=== PATIENT | male | born 1955 | race Caucasian/White ===

== ENCOUNTER 2017-10-05 08:52 | Outpatient (CLI) | payer OTHER ==
[2017-10-05 10:03] LABS: Estimated GFR-MDRD - POC Greater than 90
--- NOTE | 2017-10-05 11:39 | CT ---
CT ABDOMEN AND PELVIS WITH ORAL AND IV CONTRAST: Date: 10/05/17 HISTORY: Malignant neoplasm of prostate. COMPARISON: None FINDINGS: There are mild dependent changes at the lung bases. There are calcified granulomas in the liver and s pleen. The spleen measures 13.8 cm in length. No liver mass or abnormal biliary ductal dilatation is seen. No calcified gallstones are identified. The pancreas and adrenal glands are normal. There are s mall low density lesions in the renal cortex on either side measuring 7.0 mm on the right and 6.0 mm on the left, likely cysts. No hydroureteronephrosis is identified on either side. There is thickening of the wall of the urinary bladder. No free air, free fluid, or lymphadenopathy is seen in the abdomen or pelvis. There are vascular calc ifications without evidence of aneurysmal dilatation of the abdominal aorta. There is sigmoid diverti culosis. There are degenerative changes in the spine. A normal appearing appendix is present. There is a 14.0 mm lipoma in the third portion of the duodenu m. IMPRESSION: 1. Calcified granulomas in the liver and spleen. 2. Mild splenomegaly. 3. Small renal cysts. 4. Sigmoid diverticulosis. POS: [facility]
--- NOTE | 2017-10-05 13:50 | NM ---
WHOLE BODY BONE SCAN: Date: 10/05/17 HISTORY: Malignant neoplasm of prostate. RADIOPHARMACEUTICAL: 31 mCi technetium-99m MDP injected intravenously. FINDINGS: Increased uptake in the shoulders, sternoclavicular joints, both wrists, and knees, ankles, and feet are consistent with degenerative changes. Foci of increased uptake in the maxilla are consistent with periaortic disease. No other abnormal areas of tracer localization are seen in the skeleton to sugge st metastatic disease. Tracer excretion through the kidneys is within normal limits. IMPRESSION: No evidence of osseous metastatic disease. POS: [facility]
[2017-10-05] MEDS ORDERED: Iopamidol 370 76% 100 ML VIAL ONE (15:01)
== END 2017-10-05 08:53 | disposition home or self-care (01) ==
LOC: CT 08:52
PROVIDERS: ATTEND Internal Medicine Hematology & Oncology
DX: C61 Malignant neoplasm of prostate (principal); K75.3 Granulomatous hepatitis, not elsewhere classified; D73.89 Other diseases of spleen; R16.1 Splenomegaly, not elsewhere classified; N28.1 Cyst of kidney, acquired; K57.30 Diverticulosis of large intestine without perforation or abscess without bleeding
CPT/HCPCS: 74177; 78306; 82565; A9503

== ENCOUNTER 2020-06-20 16:16 | Inpatient (IN) | payer MEDICARE ==
[2020-06-20] MEDS: Morphine 4 MG/ML VIAL SLOW IVP PRN (21:23)
[2020-06-20] MEDS ORDERED: Ondansetron ODT 4 MG TAB PO PRN (22:35)
[2020-06-20] MEDS ORDERED: Acetaminophen 650 MG Suppository PR PRN (22:35)
[2020-06-20] MEDS ORDERED: Acetaminophen 325 MG TAB PO PRN (22:35)
--- NOTE | 2020-06-20 23:09 | PDOC.HHP ---
Hospitalist HPI - History of Present Illness Hip pain History of Present Illness: Mr. Kiser is a 65-year-old male with a past medical history of prostate cancer, hypertension, hyperlipidemia, peripheral vascular disease who initially presented to [facility] for left hip pain. Patient reports that over the past 6 months he has had worsening left hip pain which he has had multiple evaluations for. Patient had a x-ray of his hip in February which showed no acute pathology, and patient was also referred to cardiovascular surgery for peripheral vascular disease and started on Plavix. Patient also began seeing a chronic pain clinic for his hip pain and was supposed to undergo an MRI, however over the past few days his hip pain acutely worsened and he presented to the ER. He denies numbness, tingling, paresthesias. Denies back pain. Patient has history of prostate cancer which he underwent Lupron therapy for, however has been lost to follow-up. He denies fever, chills, night sweats. Denies any unexplained weight loss. In emergency room initial vital signs 125/63, 97, 15, 97.4, 97% on room air. H/H 12.5/36.3. WBC 10.3. BUNs/CR 10/0.7. Sodium 137, potassium 4.2. CT scan of the pelvis showed a large bone destroying mass of the left ilium including disruption of the left acetabular roof along with nondisplaced pathologic fractures favored to represent malignant neoplasm such as metastasis. CT scan also showed a complex cystic mass anterior to the left femoral head and neck concerning for tumor versus abscess as well as severe joint space narrowing. In addition in the perirectal space there was a mass associated with edema of uncertain etiology. Patient was transferred to [facility] for further work-up and evaluation of this new pelvic mass as well as pain control. Hospitalist ROS - Review of Systems Constitutional: denies: fever, chills, sweats, weakness, malaise, other Eyes: denies: pain, vision change, conjunctivae inflammation, eyelid inflammation, redness, other ENT: denies: ear pain, ear discharge, nose pain, nose discharge, nose congestion, mouth pain, mouth swelling, throat pain, throat swelling, other Respiratory: denies: cough, dry, shortness of breath, hemoptysis, SOB with excertion, pleuritic pain, sputum, wheezing, other Cardiovascular: denies: chest pain, palpitations, orthopnea, paroxysmal noc. dyspnea, edema, light headedness, other Gastrointestinal: denies: nausea, vomiting, abdominal pain, diarrhea, constipation, melena, hematochezia, other Genitourinary: denies: dysuria, frequency, incontinence, hematuria, retention, other Musculoskeletal: reports: leg pain. denies: neck pain, shoulder pain, arm pain, back pain, hand pain, foot pain, other Skin: denies: rash, lesions, elana, bruising, other Neurological: denies: weakness, numbness, incoordination, change in speech, confusion, seizures, other - Medication Medications: Home medications include Plavix Amlodipine Atorvastatin Gabapentin Carvedilol Lisinopril No known drug allergies Hospitalist History - Past Medical History Other Medical History: Past medical history includes Prostate cancer Hypertension Hyperlipidemia Peripheral vascular disease - Past Surgical History Other Surgical History: Denies past medical history - Family History Other Family History: Denies family history of cancer cardiac disease - Social History Smoking Status: Current every day smoker Tobacco Type: cigarettes Alcohol: reports: Occassional Drugs: reports: none Living Situation: Alone Activity level: independent ambulation - Exam General Appearance: NAD, awake alert Eye: PERRL, anicteric sclera ENT: normocephalic atraumatic, no oropharyngeal lesions, moist mucosa Neck: supple, symmetric, no JVD, no thyromegaly, no lymphadenopathy, no carotid bruit Heart: RRR, no murmur, no gallops, no rubs, normal peripheral pulses Respiratory: CTAB, no wheezes, no rales, no ronchi, normal chest expansion, no tachypnea, normal percussion Gastrointestinal: soft, non-tender, non-distended, normal bowel sounds, no palpable masses, no hepatomegaly, no splenomegaly, no bruit Extremities: no cyanosis Skin: normal turgor, no lesions, no rashes Neurological: cranial nerve grossly intact, normal sensation to touch, no weakness, no focal deficits, no new deficit Musculoskeletal: normal tone Musculoskeletal - other findings: Flexion of the left hip limited due to pain, reflexes intact Psychiatric: normal affect, normal behavior, A&O x 3 Hospitalist H&P A/P - Plan Plan: Osteolytic hip mass 65-year-old male with history of prostate cancer, hypertension, hyperlipidemia, peripheral vascular disease presents for acute worsening of left hip pain which is been progressive for the past [address] pelvis showed large approximately 5 cm osteolytic mass to the left hip as well as additional mass around the perirectum. Differential is broad, and will initiate work-up as well as consult orthopedics for further recommendations. This could represent primary cancer versus metastasis as patient does have history of prostate cancer. Mass is supposedly fast-growing as patient had a plain film of the hip done in February 2020 which was normal. Low suspicion for infectious process at this time as patient afebrile with no white blood cell count, however certainly remains in the differential. Plan Tumor lysis labs SPEP UPEP Chest x-ray to evaluate for lung mass, other lytic lesions PTH, calcium, magnesium, ESR, CRP Orthopedics consult, recommendations appreciated Patient will likely need oncology consult as well History of prostate cancer History of prostate cancer was on Lupron therapy years ago, however patient lost to follow-up. Osteolytic mass concerning for mets. Will check PSA and consult oncology for further recommendations. Plan PSA Consider oncology consult Hypertension History of hypertension on home amlodipine and lisinopril. We will continue. Hyperlipidemia We will continue home statin Peripheral vascular disease History of peripheral vascular disease, on Plavix, will continue DVT prophylaxisLovenox Full code Case discussed with attending physician, Dr. Smith
[2020-06-20 23:10] LABS: Calcium 9.3 mg/dL (7.8-10.44); Phosphorus 4.5 mg/dL (2.3-4.7); Uric Acid 6.9 mg/dL (3.5-7.2)
[2020-06-21 02:28] LABS: SARS-CoV-2 MS2 Positive; SARS-CoV-2 N Gene Negative; SARS-CoV-2 S Gene Negative; SARS-CoV-2 by NAA Not Detected (NotDetected); SARS-CoV-2 orf1ab Negative
[2020-06-21] MEDS: Morphine 4 MG/ML VIAL SLOW IVP PRN ×4 (03:00→17:03)
[2020-06-21 04:37] LABS: #Basophils 0.1 thou/uL (0.0-0.2); #Eosinphils 0.3 thou/uL (0.0-0.7); #Lymphocytes 2.6 thou/uL (1.20-3.40); #Monocytes 0.5 thou/uL (0.11-0.59); #Neutrophils 5.6 thou/uL (1.40-6.50); %Basophils 0.7 % (0.0-1.0); %Eosinophils 3.4 % (0.0-10.0); %Lymphocytes 28.8 % (21.0-51.0); %Monocytes 5.9 % (0.0-10.0); %Neutrophils 61.2 % (42.0-75.0); Hemoglobin 11.5 g/dL (14.0-18.0); Mean Corpuscular HGB CONC 33.8 g/dL (32.0-36.0); Mean Corpuscular Hemoglobin 32.1 pg (27.0-31.0); Mean Corpuscular Volume 94.9 fL (78.0-98.0); Mean Platelet Volume 6.2 fL (7.4-10.4); Platelet Count 313 thou/uL (130-400); RBC Distribution Width 11.6 % (11.5-14.5); Red Blood Cell (RBC) Count 3.57 mill/uL (4.70-6.10); White Blood Cell (WBC) Count 9.1 thou/uL (4.8-10.8)
[2020-06-21 04:57] LABS: Anion Gap 14 mmol/L (10-20); BUN (Urea Nitrogen) 15 mg/dL (8.4-25.7); Calc. Creatinine Clearance 71 mL/min (70-130); Calcium 9.1 mg/dL (7.8-10.44); Carbon Dioxide 27 mmol/L (23-31); Chloride 101 mmol/L (98-107); Glucose 112 mg/dL (80-115); Potassium 4.3 mmol/L (3.5-5.1); Sodium 138 mmol/L (136-145)
[2020-06-21] MEDS: Gabapentin 300 MG CAP PO SCH ×3 (08:02→19:56)
[2020-06-21] MEDS: Enoxaparin Sodium 40 MG/0.4 ML SYRINGE SC SCH (08:03)
[2020-06-21] MEDS: Carvedilol 6.25 MG TAB PO SCH ×2 (08:04→19:56)
[2020-06-21] MEDS: Lisinopril 20 MG TAB PO SCH (08:04)
[2020-06-21] MEDS ORDERED: Clopidogrel Bisulfate 75 MG TAB PO SCH (09:00)
--- NOTE | 2020-06-21 09:21 | RAD ---
RADIOGRAPH CHEST 2 VIEWS: DATE: 06/21/2020 HISTORY: 65-year-old male: Search for lung cancer as source of large metastatic mass of left side pelvic bone. FINDINGS: There is no airspace density, pulmonary edema, pleural effusion, pneumothorax, or cardiomegaly. No pu lmonary mass or hilar enlargement identified. No mediastinal widening. IMPRESSION: No active intrathoracic disease
--- NOTE | 2020-06-21 10:18 | CON ---
DATE OF CONSULTATION: CHIEF COMPLAINT: Left hip pain. HISTORY OF PRESENT ILLNESS: Mr. Kiser is a 65-year-old male, who presented to the emergency department after transfer from [place] last night. He had severe hip pain over the last approximately 6 months. This began somewhat with mild pain, but has worsened over time. He has been using a walker. He has been able to only ambulate around his house short distance, mostly spending time sitting recently. His pain worsened over the last several days again. The patient has had a CT scan, which has now demonstrated a large bone mass destroying the left ilium and acetabulum. There is a lytic mass in this area. Orthopedics was consulted to evaluate this patient's hip. He has been admitted to the Oncology floor. He does have a history of prostate cancer remotely. He was treated here in [place] for that several years ago. He denies any specific injury. He denies any constitutional symptoms that would suggest infection. PAST MEDICAL HISTORY: Includes; 1. Prostate cancer. 2. Hypertension. 3. Hyperlipidemia. 4. Peripheral vascular disease. FAMILY MEDICAL HISTORY: Noncontributory. SOCIAL HISTORY: The patient does smoke cigarettes daily. He drinks alcohol occasionally. Denies drug use. MEDICATIONS: Include; 1. Plavix. 2. Amlodipine. 3. Atorvastatin. 4. Gabapentin. 5. Carvedilol. 6. Lisinopril. LABORATORY STUDIES: Hemoglobin is 11.5, hematocrit is 33.9. His prostate specific antigen is high at 124. Electrolytes are within normal limits. IMAGING DATA: CT scan of the pelvis again reveals a large lytic mass of the left acetabulum and ilium. The acetabular roof has been eroded. There is incongruency of the hip. There is extension into the soft tissues about the ilium. IMPRESSION: A 65-year-old male with lytic mass of the ilium eroding the acetabulum and ilium with history of prostate cancer and elevated PSA. PLAN: At this point, the patient's most likely diagnosis is going to be metastatic prostate cancer, although it is possible that this is a second primary tumor. Given the location of his large mass and the extensive involvement of his pelvis, I think the patient would best be treated in [facility] by musculoskeletal oncologist. I would not recommend any surgical intervention here or likely even biopsy. In general, in my experience, the musculoskeletal oncologist would prefer to do the biopsy as well, so they can plan the biopsy tract in the surgical field. Unfortunately, I do not think I can help this patient. I am available if he needs anything while an inpatient, but I would recommend transfer to musculoskeletal oncologist likely at [facility]. Job ID: [id number] GRE[facility]
--- NOTE | 2020-06-21 16:18 | PDOC.HOSPP ---
- Subjective Encounter Date: 06/21/20 Encounter Time: 16:13 Subjective: Seen for follow-up regarding complaints. Reports left hip pain. - Objective Vital Signs & Weight: Vital Signs (12 hours) Temp Pulse Resp BP BP Pulse Ox 06/21/20 12:22 98.6 F 72 18 108/66 95 06/21/20 08:04 119/57 L 06/21/20 07:59 98.5 F 83 18 119/57 L 94 L Weight Admit Weight 119 lb 5.008 oz Weight 119 lb 5 oz I&O: 06/20/20 06/21/20 06/22/20 06:59 06:59 06:59 Intake Total 600 400 Output Total 100 Balance 500 400 Result Diagrams: 06/21/20 04:09 06/21/20 04:09 Additional Labs: Labs and MAR reviewed by wv Hospitalist ROS - Review of Systems Cardiovascular: denies: chest pain (Left hip pain), palpitations, orthopnea, paroxysmal noc. dyspnea, edema, light headedness Gastrointestinal: denies: nausea, vomiting, abdominal pain, diarrhea, constipation, melena, hematochezia Musculoskeletal: reports: other - Medication Medications: Active Medications Generic Name Dose Route Start Last Admin Trade Name Freq PRN Reason Stop Dose Admin Carvedilol 6.25 mg 06/21/20 09:00 06/21/20 08:04 Carvedilol 6.25 Mg Tab PO Not Given BID ON LICENSE OF [facility] Enoxaparin Sodium 40 mg 06/21/20 09:00 06/21/20 08:03 Enoxaparin Sodium 40 Mg/0.4 Ml Syringe SC 40 mg 0900 ON LICENSE OF [facility] Administration Gabapentin 300 mg 06/21/20 09:00 06/21/20 08:02 Gabapentin 300 Mg Cap PO 300 mg TID ELLIE Administration Lisinopril 20 mg 06/21/20 09:00 06/21/20 08:04 Lisinopril 20 Mg Tab PO Not Given DAILY ON LICENSE OF [facility] Morphine Sulfate 4 mg 06/20/20 20:29 06/21/20 12:59 Morphine 4 Mg/Ml Vial SLOW IVP 4 mg Q4H PRN Administration Severe Pain (7-10) - Exam General Appearance: awake alert Eye: anicteric sclera ENT: moist mucosa Neck: supple Heart: RRR Respiratory: CTAB Gastrointestinal: soft Skin: no rashes Psychiatric: normal affect, normal behavior Hosp A/P - Plan - Plan Plan: Assessment/plan: Osteolytic hip mass Discussed with orthopedic surgery service. Patient will need to be transferred to a tertiary center for a musculoskeletal oncologist. Will initiate transfer to [facility]. Pain management. PT eval/treat. History of prostate cancer Patient is a poor historian, reports having prostate cancer in the past and says he was on Lupron but no other treatments. Will consult oncology service for opinion and help with management. Hypertension Continue amlodipine and lisinopril. Monitor vital signs and titrate antihypertensives as needed. Hyperlipidemia Continue statin. Peripheral vascular disease Continue Plavix
[2020-06-21] MEDS: Atorvastatin Calcium 40 MG TAB PO SCH (19:56)
[2020-06-21] MEDS: Morphine 2 MG/ML VIAL SLOW IVP PRN (19:57)
[2020-06-21] MEDS: Amlodipine 10 MG TAB PO SCH (19:57)
[2020-06-21] MEDS ORDERED: FLU VACC QS2020-21(65YR UP)/PF 240 MCG/0.7 ML SYRINGE IM ONE (21:00)
[2020-06-22] MEDS: Morphine 4 MG/ML VIAL SLOW IVP PRN ×6 (01:41→21:42)
[2020-06-22 05:56] LABS: #Eosinphils 0.3 thou/uL (0.0-0.7); #Lymphocytes 3.4 thou/uL (1.20-3.40); #Monocytes 0.6 thou/uL (0.11-0.59); #Neutrophils 5.4 thou/uL (1.40-6.50); %Basophils 0.4 % (0.0-1.0); %Eosinophils 3.1 % (0.0-10.0); %Lymphocytes 35.3 % (21.0-51.0); %Monocytes 5.9 % (0.0-10.0); %Neutrophils 55.4 % (42.0-75.0); Hemoglobin 11.8 g/dL (14.0-18.0); Mean Corpuscular HGB CONC 33.4 g/dL (32.0-36.0); Mean Corpuscular Hemoglobin 31.7 pg (27.0-31.0); Platelet Count 324 thou/uL (130-400); RBC Distribution Width 11.7 % (11.5-14.5); Red Blood Cell (RBC) Count 3.71 mill/uL (4.70-6.10); White Blood Cell (WBC) Count 9.7 thou/uL (4.8-10.8)
[2020-06-22 06:17] LABS: Anion Gap 15 mmol/L (10-20); BUN (Urea Nitrogen) 13 mg/dL (8.4-25.7); Calc. Creatinine Clearance 72 mL/min (70-130); Calcium 9.2 mg/dL (7.8-10.44); Carbon Dioxide 27 mmol/L (23-31); Chloride 102 mmol/L (98-107); Glucose 105 mg/dL (80-115); Potassium 4.5 mmol/L (3.5-5.1); Sodium 139 mmol/L (136-145)
[2020-06-22] MEDS ORDERED: Iopamidol-370 76% 500 ML 1 ML ONE (08:41)
[2020-06-22] MEDS: Carvedilol 6.25 MG TAB PO SCH ×2 (10:35→20:06)
[2020-06-22] MEDS: Gabapentin 300 MG CAP PO SCH ×3 (10:36→20:05)
[2020-06-22] MEDS: Lisinopril 20 MG TAB PO SCH (10:36)
[2020-06-22] MEDS: Enoxaparin Sodium 40 MG/0.4 ML SYRINGE SC SCH (10:36)
[2020-06-22 13:41] VITALS: BMI 29.8
--- NOTE | 2020-06-22 13:45 | CON ---
DATE OF CONSULTATION: HISTORY OF PRESENT ILLNESS: Mr. Kiser is a 65-year-old male with known metastatic prostate cancer, who also has multiple psychosocial issues including lack of insurance. He has been followed by my office since 2017, but has been somewhat noncompliant because of the financial issues and has not received Lupron in some time because we have been unable to get it for free for him and because there is a national shortage. We have tried to make him multiple followup appointments and he has not shown up for these. He has had increasing left hip pain for the last few months. He states it got acutely worse over the last several days and came to the emergency room in [place]. There, he was found on CAT scan to have a large mass in the left ilium and acetabulum, which was lytic. He was seen by Orthopedics and they did not recommend surgery in our facility, but I have suggested that he does need surgery, he should go to [facility] to see a musculoskeletal specialist. The patient states the pain is stable, the pain medication is working, but not decreasing the pain entirely to zero. He is ambulatory and can ambulate to the bathroom as well to the chair and within the room. He denies any other bone pain or back pain. REVIEW OF SYSTEMS: He has had some weight loss over the last few months, but he is unable to quantify. His appetite is low, he says because of pain. He denies shortness of breath or cough. No trouble urinating. PAST MEDICAL HISTORY: 1. Metastatic prostate cancer, diagnosed in 2017, his PSA at that time was in the 60s and he did have a prostate biopsy. He had no scans at that time because of the lack of insurance. He has been getting intermittent Lupron from my office, but has not had an injection in some time. 2. Hypertension. 3. Hyperlipidemia. 4. Peripheral vascular disease. CURRENT MEDICATIONS: 1. Tylenol p.r.n. 2. Norvasc 10 mg p.o. at bedtime. 3. Lipitor 40 mg p.o. at bedtime. 4. Coreg 6.25 mg p.o. b.i.d. 5. Lovenox 40 mg subcu daily. 6. Gabapentin 300 mg p.o. t.i.d. 7. Zestril 20 mg p.o. daily. 8. Morphine 2 mg IV q.4 hours p.r.n. 9. Zofran 4 mg p.o. q.6 hours p.r.n. ALLERGIES: NO KNOWN DRUG ALLERGIES. SOCIAL HISTORY: He has children, who are somewhat supportive, but are not in the room currently. He continues to smoke every day. Denies anything other than occasional alcohol use. REVIEW OF SYSTEMS: Otherwise, 10-point review of systems is negative. Please see the History of Present Illness. FAMILY HISTORY: Noncontributory. PHYSICAL EXAMINATION: VITAL SIGNS: Temperature 98.4, pulse 83, respirations 18, O2 saturation 97% on room air, and blood pressure 145/66. GENERAL: He is alert, awake, and oriented x3. He is sitting up in the chair, watching television, in no acute distress. HEENT: Extraocular muscles are intact. Sclerae are anicteric. NECK: Supple without lymphadenopathy. CARDIOVASCULAR: Regular rhythm. LUNGS: Clear to auscultation bilaterally. ABDOMEN: Hypoactive bowel sounds. Soft, nontender, and nondistended. EXTREMITIES: No edema. He does have point tenderness in the left hip and over the left femur. LABORATORY DATA: White blood cell count 9.1, hemoglobin 11.5, and platelets 313. Electrolytes are normal including a calcium of 9.2. PSA done on this admission is 124. IMAGING DATA: CT scan done at the outside facility showed a large lytic lesion in the left ilium and acetabulum. ASSESSMENT: Mr. Kiser is a 65-year-old male with, 1. Metastatic prostate cancer. 2. Left hip pain secondary to lytic lesion in the ilium. 3. Noncompliance secondary to psychosocial and financial issues. PLAN: 1. Discussed the case with Dr. Christiansen, assuming he does not have to have surgery for this problem, I think he would be better served by radiation for pain control. We will discuss the case and decide on a transfer, but then also consult Radiation Oncology. 2. I recommend he get back on antiandrogen therapy either with Lupron or one of the equivalents including Eligard or Trelstar. My understanding is we do not have this as an inpatient here in the pharmacy and we will have to attempt to get this form as an outpatient. We will work on this later in the hospitalization. 3. Bone scan ordered for staging. 4. We need to get the CT scan done in the outside emergency room and he may need full CT for staging. 5. We will continue to follow with you. Job ID: [id number]
--- NOTE | 2020-06-22 15:09 | CT ---
CT THORAX WITH CONTRAST CT ABDOMEN WITH CONTRAST CT PELVIS WITH CONTRAST: DATE: 06/22/2020 HISTORY: 65-year-old male with prostate cancer, dyspnea, and abdominal pain. Evaluate for metastatic disease. Left hip and left lower quadrant pain. COMPARISON: 10/05/2017 CT abdomen and pelvis 06/20/2020 CT PELVIS TECHNIQUE: IV iodinated contrast media: Administered Oral contrast media: Administered Single phase scans of thorax, abdomen, and pelvis. FINDINGS: Again noted is the large bone-destroying osteolytic mass centered at the left iliac bone, including a cetabular roof, with soft tissue component. Because it is osteolytic, it is not consistent with prostate cancer metastasis, which should be osteoblastic. No osteoblastic skeletal lesions are visualized anywhere. Calcified granuloma in right middle lobe abutting minor fissure. Otherwise, the lungs are clear, with no evidence of pulmonary metastasis, mass, round blastic lesions , pulmonary edema, or consolidation. There is subsegmental atelectasis at the right lower lobe. No pleural effusion or pneumothorax. Atherosclerosis of aorta, especially abdominal aorta, without aneurysm. No hydronephrosis or pyelonephritis. Mildly lobular margins of liver, questionable for mild cirrhosis. No hepatic metastasis or intrahepatic biliary ductal dilation. No splenomegaly. No adrenal nodule. Normal pancreas. Mildly enlarged lymph nodes of dana hepatis, celiac axis, mesenteric root, and periaortic retroperit oneum, are unchanged since 2018. Heavily calcified atheromatous plaque at proximal left renal artery causing high-grade stenosis. Mild mural thickening of urinary bladder, similar to 06/20/2020. No ascites, small bowel dilation, or pneumoperitoneum. Normal appendix. No colonic diverticulitis. Severe joint space narrowing at superior aspect of left hip, with irregularity and slight flattening of left femoral head. Loss of articular cartilage abuts the osteolytic bone lesion. Soft tissue density mass like structure lateral to the right side of the rectum, unchanged since 2020. IMPRESSION: 1) large, bone-destroying osteolytic mass of left iliac bone including acetabular roof. This is highl y likely to represent a malignant neoplastic tumor such as metastasis. Severe osteomyelitis is less likely. This is very unlikely to represent prostate cancer metastasis. 2) severe osteoarthrosis of left hip 3) mural thickening and distention of urinary bladder. 4) soft tissue mass with surrounding edema in the right posterior pelvic cavity. See report of 06/20/[address] 5) no evidence of malignancy in upper abdominal cavity or chest 6) questionable hepatic cirrhosis
--- NOTE | 2020-06-22 15:46 | PDOC.HOSPP ---
- Subjective Encounter Date: 06/22/20 Encounter Time: 07:00 Subjective: Patient seen for follow-up regarding pelvic mass. Denies chest pain. - Objective Vital Signs & Weight: Vital Signs (12 hours) Temp Pulse Resp BP Pulse Ox 06/22/20 08:00 98.4 F 83 18 145/66 H 97 Weight Admit Weight 119 lb 5.008 oz Weight 220 lb I&O: 06/21/20 06/22/20 06/23/20 06:59 06:59 06:59 Intake Total 600 1160 400 Output Total 100 1150 Balance 500 10 400 Result Diagrams: 06/22/20 05:45 06/22/20 05:45 Additional Labs: I reviewed patient's labs and MAR Hospitalist ROS - Review of Systems Respiratory: denies: cough, shortness of breath, SOB with excertion, pleuritic pain, wheezing Cardiovascular: denies: chest pain, palpitations, orthopnea, paroxysmal noc. dyspnea, edema, light headedness Musculoskeletal: reports: other (Left hip pain) - Medication Medications: Active Medications Generic Name Dose Route Start Last Admin Trade Name Freq PRN Reason Stop Dose Admin Amlodipine Besylate 10 mg 06/21/20 21:00 06/21/20 19:57 Amlodipine 10 Mg Tab PO Not Given HS ELLIE Atorvastatin Calcium 40 mg 06/21/20 21:00 06/21/20 19:56 Atorvastatin Calcium 40 Mg Tab PO 40 mg HS ELLIE Administration Carvedilol 6.25 mg 06/21/20 09:00 06/22/20 10:35 Carvedilol 6.25 Mg Tab PO 6.25 mg BID ELLIE Administration Enoxaparin Sodium 40 mg 06/21/20 09:00 06/22/20 10:36 Enoxaparin Sodium 40 Mg/0.4 Ml Syringe SC 40 mg 899 ELLIE Administration Gabapentin 300 mg 06/21/20 09:00 06/22/20 10:36 Gabapentin 300 Mg Cap PO 300 mg TID ELLIE Administration Lisinopril 20 mg 06/21/20 09:00 06/22/20 10:36 Lisinopril 20 Mg Tab PO 20 mg DAILY ELLIE Administration Morphine Sulfate 2 mg 06/20/20 20:29 06/21/20 19:57 Morphine 2 Mg/Ml Vial SLOW IVP 2 mg Q4H PRN Administration Moderate Pain (4-6) Morphine Sulfate 4 mg 06/20/20 20:29 06/22/20 14:12 Morphine 4 Mg/Ml Vial SLOW IVP 4 mg Q4H PRN Administration Severe Pain (7-10) - Exam General Appearance: awake alert Eye: anicteric sclera ENT: moist mucosa Neck: supple Heart: RRR Respiratory: CTAB Gastrointestinal: soft Skin: no rashes Psychiatric: normal affect, normal behavior Hosp A/P - Plan - Plan Plan: Assessment/plan: Osteolytic hip mass Patient seen by oncology service, appreciate their input. Hip mass less likely to be secondary to prostate cancer, given its osteolytic nature. History of prostate cancer Appreciate oncology service input. Hypertension Controlled and stable. Hyperlipidemia Continue Lipitor 40 mg at bedtime. Peripheral vascular disease Continue Plavix
[2020-06-22] MEDS: Atorvastatin Calcium 40 MG TAB PO SCH (20:05)
[2020-06-22] MEDS: Amlodipine 10 MG TAB PO SCH (20:06)
[2020-06-22] MEDS: Senokot S 8.6-50 MG TAB PO SCH (21:42)
[2020-06-23] MEDS: Morphine 4 MG/ML VIAL SLOW IVP PRN ×4 (04:51→19:18)
[2020-06-23 07:30] LABS: #Eosinphils 0.3 thou/uL (0.0-0.7); #Lymphocytes 2.3 thou/uL (1.20-3.40); #Monocytes 0.5 thou/uL (0.11-0.59); #Neutrophils 5.6 thou/uL (1.40-6.50); %Basophils 0.2 % (0.0-1.0); %Eosinophils 3.7 % (0.0-10.0); %Lymphocytes 26.3 % (21.0-51.0); %Monocytes 5.5 % (0.0-10.0); %Neutrophils 64.4 % (42.0-75.0); Hemoglobin 10.8 g/dL (14.0-18.0); Mean Corpuscular HGB CONC 34.4 g/dL (32.0-36.0); Mean Corpuscular Hemoglobin 32.8 pg (27.0-31.0); Mean Corpuscular Volume 95.2 fL (78.0-98.0); Platelet Count 263 thou/uL (130-400); RBC Distribution Width 11.5 % (11.5-14.5); Red Blood Cell (RBC) Count 3.29 mill/uL (4.70-6.10); White Blood Cell (WBC) Count 8.7 thou/uL (4.8-10.8)
[2020-06-23 07:52] LABS: Anion Gap 12 mmol/L (10-20); BUN (Urea Nitrogen) 12 mg/dL (8.4-25.7); Calc. Creatinine Clearance 148 mL/min (70-130); Calcium 8.8 mg/dL (7.8-10.44); Carbon Dioxide 26 mmol/L (23-31); Chloride 100 mmol/L (98-107); Glucose 114 mg/dL (80-115); Potassium 3.9 mmol/L (3.5-5.1); Sodium 134 mmol/L (136-145)
[2020-06-23] MEDS: Gabapentin 300 MG CAP PO SCH ×3 (08:31→21:11)
[2020-06-23] MEDS: Senokot S 8.6-50 MG TAB PO SCH ×2 (08:31→21:11)
[2020-06-23] MEDS: Carvedilol 6.25 MG TAB PO SCH ×2 (08:31→21:10)
[2020-06-23] MEDS: Enoxaparin Sodium 40 MG/0.4 ML SYRINGE SC SCH (08:36)
[2020-06-23] MEDS: Lisinopril 20 MG TAB PO SCH (08:40)
[2020-06-23 10:37] LABS: Kappa Lambda Light Chain Ratio 1.17 (0.26-1.65); Kappa Light Chains 30.7 mg/L (3.3-19.4); Lambda Light Chain 26.3 mg/L (5.7-26.3)
--- NOTE | 2020-06-23 12:18 | NM ---
Radionucleotide bone scan HISTORY: Pelvic pain. Bone mass. Metastatic disease. Prostate cancer. COMPARISON: 10/05/2017. CT 06/22/2020. FINDINGS: A large ill-defined area of markedly increased radiotracer uptake involves the left acetabu lum. A small focus of uptake is also present at the medial aspect of the left iliac body, correlating with a subtle sclerotic focus on recent CT. No distant areas of abnormality are apparent. Mild degenerative changes of the right shoulder noted. IMPRESSION : Markedly abnormal uptake of the left pelvis, correlating with CT findings. No distant metastases.
--- NOTE | 2020-06-23 14:51 | PDOC.HOSPP ---
- Subjective Encounter Date: 06/23/20 Encounter Time: 07:00 Subjective: Patient seen for follow-up regarding osteolytic lesion. Reports pain is under control with pain medications. - Objective Vital Signs & Weight: Vital Signs (12 hours) Temp Pulse Resp BP BP Pulse Ox 06/23/20 08:40 100/56 L 06/23/20 08:31 100/56 L 06/23/20 08:00 98.3 F 67 18 111/56 L 95 Weight Admit Weight 119 lb 5.008 oz Weight 220 lb I&O: 06/22/20 06/23/20 06/24/20 06:59 06:59 06:59 Intake Total 1160 1400 Output Total 1150 350 Balance 10 1050 Result Diagrams: 06/23/20 07:15 06/23/20 07:15 Additional Labs: Labs and MAR reviewed by vt Hospitalist ROS - Review of Systems Constitutional: denies: fever, chills, sweats, weakness, malaise Genitourinary: denies: dysuria, frequency, incontinence, hematuria, retention, other Musculoskeletal: reports: other (Left hip pain) - Medication Medications: Active Medications Generic Name Dose Route Start Last Admin Trade Name Freq PRN Reason Stop Dose Admin Amlodipine Besylate 10 mg 06/21/20 21:00 06/22/20 20:06 Amlodipine 10 Mg Tab PO Not Given HS ELLIE Atorvastatin Calcium 40 mg 06/21/20 21:00 06/22/20 20:05 Atorvastatin Calcium 40 Mg Tab PO 40 mg HS ELLIE Administration Carvedilol 6.25 mg 06/21/20 09:00 06/23/20 08:31 Carvedilol 6.25 Mg Tab PO 6.25 mg BID ELLIE Administration Enoxaparin Sodium 40 mg 06/21/20 09:00 06/23/20 08:36 Enoxaparin Sodium 40 Mg/0.4 Ml Syringe SC 40 mg 0900 ELLIE Administration Gabapentin 300 mg 06/21/20 09:00 06/23/20 08:31 Gabapentin 300 Mg Cap PO 300 mg TID ELLIE Administration Lisinopril 20 mg 06/21/20 09:00 06/23/20 08:40 Lisinopril 20 Mg Tab PO Not Given DAILY ELLIE Morphine Sulfate 2 mg 06/20/20 20:29 06/21/20 19:57 Morphine 2 Mg/Ml Vial SLOW IVP 2 mg Q4H PRN Administration Moderate Pain (4-6) Morphine Sulfate 4 mg 06/20/20 20:29 06/23/20 12:26 Morphine 4 Mg/Ml Vial SLOW IVP 4 mg Q4H PRN Administration Severe Pain (7-10) Senna/Docusate Sodium 1 tab 06/22/20 21:00 06/23/20 08:31 Senokot S 8.6-50 Mg Tab PO 1 tab BID ELLIE Administration Sodium Chloride 10 ml 06/20/20 22:35 06/23/20 04:51 Flush - Normal Saline 10 Ml Syringe IVF 10 ml PRN PRN Administration Saline Flush - Exam General Appearance: awake alert ENT: normocephalic atraumatic Neck: supple Heart: RRR, no gallops Respiratory: CTAB Gastrointestinal: soft, non-tender Skin: no rashes Psychiatric: normal affect, normal behavior Hosp A/P - Plan - Plan Plan: Assessment/plan: Osteolytic hip mass Patient seen by radiation oncology service. He will have biopsy as inpatient. Follow-up as outpatient. History of prostate cancer Seen by radiation oncology service and medical oncology service. Hypertension Controlled and stable. Hyperlipidemia Continue Lipitor 40 mg at bedtime. Peripheral vascular disease Continue Plavix
--- NOTE | 2020-06-23 14:54 | PDOC.CONS ---
- Consultation Encounter Date: 06/23/20 RADIATION ONCOLOGY CONSULT IDENTIFICATION: 65 yo M with high volume high risk prostate cancer since 2016, initial PSA 68.9, grade group 4, treated with intermittent Lupron alone due to socioeconomic constraints, now with large lytic mass in left iliac bone and surrounding soft tissue masses in pelvis with rising PSA. HISTORY OF PRESENT ILLNESS: Mr. Kiser's cancer history dates back to 2016, when he developed difficulties urinating and required repeat catheterizations. Eventually, he was referred to urologist Dr. Mccracken, found a PSA of 68.9 with palpable disease on EVERETTE. She did prostate biopsy that showed 12 of 12 cores positive for poorly differentiated invasive adenocarcinoma, anisa 4 + 4 in 11/12 cores and anisa 3 + 7 in 1/12 cores and started him on Casodex with decrease in PSA down to 4. He had no health insurance at the time and was unable to pay for initial staging scans. However, he eventually obtained staging workup including bone scan and CT abd/pelvis in 2018 that showed no evidence of disease. In the meantime, he saw Dr. Long in medical oncology who recommended ADT and Taxotere at diagnosis, but due to lack of funding and financial concerns, he has only been treated with Lupron. Dr. Mccracken suggested that local therapy done for cure would not be beneficial due to his high initial PSA and risk of occult metastatic disease. Therefore, patient continued on monthly Lupron inconsistently due to noncompliance with appointments and financial constraints. He believes his last dose of Lupron was about summer. He did attempt to get Medicare after turning 65, but he is not sure if he has it at the present time. His PSA has continued to rise since January 2019 when it was 1.32, to present day, when it is 124.32. It is unclear whether he has had any imaging of his pelvis done within this time frame until his present hospitalization. More recently, Mr. Kiser began having pain in his left hip starting February 2020. This progressively worsened such that he was using crutches and a walker for ambulation around his home. He states he has only been taking Tylenol and Gabapentin for pain. Last week, the pain became unbearable and so his son called EMS to pick him up. He presented to [place], where he was transferred to [facility] in [place], where he was admitted to oncology floor and med onc was consulted. CT pelvis showed a large lytic mass of acetabulum as well as adjacent soft tissue masses (one in contralateral right pelvis and one anterior to left femoral head). Bone scan confirmed the large left hip mass and a small focus of uptake at the left iliac body as only sites of osseous disease. CT chest and abdomen confirmed no malignancy above the pelvis. Orthopedic surgery was consulted, and given the extent of pelvic involvement with possible second primary, they recommend transfer to tertiary care for musculoskeletal oncology. Radiation oncology was consulted for further evaluation. PAST MEDICAL HISTORY: Prostate cancer; HTN; HLD; PVD PAST SURGICAL HISTORY: None ALLERGIES: NKDA FAMILY HISTORY: Father - prostate cancer. Brother - prostate cancer. Sister - breast cancer SOCIAL HISTORY: Tobacco: Current smoker, at least 1 PPD x 50 years. Alcohol: Averages currently 4 drinks/day. Drugs: Denies. 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 Lives alone about 40 miles from [place]. PREVIOUS RADIATION: None prior REVIEW OF SYSTEMS: 10-point ROS negative except as per HPI and nursing notes. PHYSICAL EXAM: GENERAL: KPS 60. Male seated in chair in no apparent distress. HEENT: Normocephalic, atraumatic. LYMPHATICS: No cervical or supraclavicular adenopathy palpable bilaterally. CARDIOVASCULAR: Regular rate and rhythm. No murmurs, rubs, or gallops. PULMONARY: Clear to auscultation bilaterally. No crackles, wheezes, or rhonchi. BACK: No tenderness to percussion of spinous processes or SI joints. ABDOMEN: Soft, nontender, nondistended. MUSCULOSKELETAL: Trace edema RLE. 1+ edema LLE. Limited hip abduction due to pain. NEUROLOGIC: Cranial nerves II-XII intact. Strength 5/5 in upper and lower extremities bilaterally with exception of left hip abduction markedly limited by pain. Sensation to soft touch intact and symmetric in upper and lower extremities. Uses walker for ambulation. LABS: Reviewed CBC and BMP 06/23/2020. Hgb 10.8. Cr 0.7. From 06/20/2020: LDH 210; CRP 1.7; Alk Phos 118 PSA: 01/06/2017: 68.89 03/16/2017: 4.06 04/25/2017: 1.12 02/07/2018: 1.35 01/19/2019: 1.32 08/30/2019: 9.54 01/08/2020: 31.39 06/20/2020: 124.32 IMAGING: Bone Scan, 10/05/2017: No osseous metastatic disease. CT Abd/Pelvis, 10/05/2017: No metastatic lesions. CT Chest/Abd/Pelvis, 06/22/2020: Large osteolytic mass (5.5 x 7 x 5 cm) in left iliac bone including left acetabular roof with soft tissue component. Complex cystic mass (4 x 4 x 2.5 cm) anterior to left femoral head and neck. Soft tissue mass in right posterior pelvic cavity (5 x 1.5 x 5 cm) with associated edema. No evidence of malignancy in abdominal cavity or chest. Bone Scan, 06/23/2020: Markedly abnormal uptake in left pelvis involving left acetabulum and small foci in medial aspect of left iliac body, both of which corresponding with changes on CT. PATHOLOGY: Prostate Biopsy, 01/17/2017: Poorly differentiated invasive adenocarcinoma of prostate. [place] 4 + 8 in 11/12 cores. Anisa 4 + 3 in 1/12 cores. No PNI. ASSESMENT/PLAN: 65 yo M with high volume high risk prostate cancer since 2017, initial PSA 68.9, grade group 4, treated with intermittent Lupron alone due to socioeconomic constraints, now with large lytic mass in left iliac bone and surrounding soft tissue masses in pelvis with rising PSA. Much of Mr. Kiser's left iliac bone has been eroded by this destructive mass, and it is the etiology of his pain and current functional status. Although atypical to have lytic lesions on imaging, this is most likely malignancy from metastatic prostate cancer as it fits his clinical picture given his inadequately treated high risk cancer at diagnosis nearly 4 years ago in context of rising PSA. Nonetheless, the radiologic findings do warrant further workup because this could represent a second primary vs other etiology and so suggest a biopsy of the mass in left iliac bone to confirm diagnosis. Unfortunately, radiation will not improve the structural loss of bone integrity, but it may improve his pain [assuming pain is not caused by mechanical compression of nerves] and offer some degree of local control within the pelvis. While the only way to mechanically improve his functional status is with tertiary transfer and extensive surgery, the patient has limited socioeconomic resources and this may prove difficult to attain given his past constraints. Therefore, palliative radiotherapy is a reasonable alternative. Additionally agree with restarting systemic antiandrogen per medical oncology. 60 minutes were spent with this patient with greater than 50% of that time spent on counseling and coordination of care. Recap: - Ordered CT-guided biopsy of left pelvic mass - Will FU with pt as outpatient for biopsy results - If confirmed metastatic disease, anticipate palliative radiation to pelvis for pain control - Will alert social work as patient has current financial concerns
[2020-06-23] MEDS ORDERED: Sodium Chloride 0.9% 20 ML ONE (15:04)
[2020-06-23] MEDS ORDERED: Fentanyl 100 MCG/2 ML VIAL ONE (15:04)
--- NOTE | 2020-06-23 15:36 | CT ---
Left pelvic mass biopsy CT-guided Conscious sedation: At least 30 minutes spent with the patient for conscious sedation. FINDINGS: After explaining the procedure and answering all questions, limited CT imaging of the pelvi s was performed with patient supine. Sterile technique, buffered local anesthesia, CT guidance, conscious sedation, and a left anterolater al approach were used to carefully advance a 17-gauge trocar needle to the destructive left hip mass. Approach planned to avoid major vascular structures and the joint space. A total of 3 18-gauge core specimens were obtained and eventually submitted to pathology for evaluati on. Needle was removed. No evidence of complication. Patient tolerated the procedure well and was returne d in unchanged condition. IMPRESSION : Technically successful left hip mass biopsy. Pathology is pending.
[2020-06-23 17:37] LABS: Albumin-Ur 25.8 % (.); Alpha 1 - Ur 2.2 % (.); Beta-Ur 26.9 % (.); Gamma-Ur 27.1 % (.); M-Spike,% 12.4 % (Not Observed); Protein, Urine 12.9 mg/dL (Not Estab.)
[2020-06-23 17:37] LABS: A/G Ratio 0.9 (0.7-1.7); Albumin 3.6 g/dL (2.9-4.4); Alpha 1 0.3 g/dL (0.0-0.4); Alpha 2 0.9 g/dL (0.4-1.0); Beta 1.2 g/dL (0.7-1.3); Gamma 1.4 g/dL (0.4-1.8); Globulin, Total 3.8 g/dL (2.2-3.9); M-Spike Not Observed g/dL (Not Observed)
[2020-06-23] MEDS: Amlodipine 10 MG TAB PO SCH (19:15)
[2020-06-23] MEDS: Atorvastatin Calcium 40 MG TAB PO SCH (21:11)
[2020-06-24] MEDS: Morphine 4 MG/ML VIAL SLOW IVP PRN ×4 (00:51→21:49)
[2020-06-24 07:03] LABS: #Eosinphils 0.4 thou/uL (0.0-0.7); #Lymphocytes 2.5 thou/uL (1.20-3.40); #Monocytes 0.5 thou/uL (0.11-0.59); #Neutrophils 5.3 thou/uL (1.40-6.50); %Basophils 0.4 % (0.0-1.0); %Eosinophils 4.5 % (0.0-10.0); %Lymphocytes 28.6 % (21.0-51.0); %Monocytes 5.9 % (0.0-10.0); %Neutrophils 60.7 % (42.0-75.0); Hemoglobin 12.2 g/dL (14.0-18.0); Mean Corpuscular HGB CONC 33.7 g/dL (32.0-36.0); Mean Corpuscular Hemoglobin 32.4 pg (27.0-31.0); Mean Corpuscular Volume 96.2 fL (78.0-98.0); Mean Platelet Volume 6.1 fL (7.4-10.4); Platelet Count 295 thou/uL (130-400); RBC Distribution Width 11.6 % (11.5-14.5); Red Blood Cell (RBC) Count 3.76 mill/uL (4.70-6.10); White Blood Cell (WBC) Count 8.7 thou/uL (4.8-10.8)
[2020-06-24 07:23] LABS: Anion Gap 12 mmol/L (10-20); BUN (Urea Nitrogen) 8 mg/dL (8.4-25.7); Calc. Creatinine Clearance 148 mL/min (70-130); Calcium 9.4 mg/dL (7.8-10.44); Carbon Dioxide 27 mmol/L (23-31); Chloride 99 mmol/L (98-107); Glucose 101 mg/dL (80-115); Potassium 4.1 mmol/L (3.5-5.1); Sodium 134 mmol/L (136-145)
[2020-06-24] MEDS: Gabapentin 300 MG CAP PO SCH ×3 (08:15→20:04)
[2020-06-24] MEDS: Senokot S 8.6-50 MG TAB PO SCH ×2 (08:16→20:04)
[2020-06-24] MEDS: Lisinopril 20 MG TAB PO SCH (08:16)
[2020-06-24] MEDS: Carvedilol 6.25 MG TAB PO SCH ×2 (08:16→20:06)
[2020-06-24] MEDS: Enoxaparin Sodium 40 MG/0.4 ML SYRINGE SC SCH (08:16)
[2020-06-24] MEDS: Morphine 2 MG/ML VIAL SLOW IVP PRN (08:17)
--- NOTE | 2020-06-24 17:04 | PDOC.HOSPP ---
- Subjective Encounter Date: 06/24/20 Encounter Time: 17:01 Subjective: Patient seen for follow-up regarding osteolytic lesion. He reports decreased ambulation secondary to left hip pain. - Objective Vital Signs & Weight: Vital Signs (12 hours) BP Pulse Ox 06/24/20 08:16 130/66 06/24/20 08:00 99 Weight Admit Weight 119 lb 5.008 oz Weight 220 lb I&O: 06/23/20 06/24/20 06/25/20 06:59 06:59 06:59 Intake Total 1400 382 Output Total 350 Balance 1050 382 Result Diagrams: 06/24/20 06:52 06/24/20 06:52 Additional Labs: I reviewed patient's labs and MAR Hospitalist ROS - Review of Systems Constitutional: reports: weakness Cardiovascular: denies: chest pain, palpitations, orthopnea, paroxysmal noc. dyspnea, edema, light headedness Gastrointestinal: denies: nausea, vomiting, abdominal pain, diarrhea, c onstipation, melena, hematochezia - Medication Medications: Active Medications Generic Name Dose Route Start Last Admin Trade Name Freq PRN Reason Stop Dose Admin Amlodipine Besylate 10 mg 06/21/20 21:00 06/23/20 19:15 Amlodipine 10 Mg Tab PO Not Given HS ELLIE Atorvastatin Calcium 40 mg 06/21/20 21:00 06/23/20 21:11 Atorvastatin Calcium 40 Mg Tab PO 40 mg HS ELLIE Administration Carvedilol 6.25 mg 06/21/20 09:00 06/24/20 08:16 Carvedilol 6.25 Mg Tab PO 6.25 mg BID ELLIE Administration Enoxaparin Sodium 40 mg 06/21/20 09:00 06/24/20 08:16 Enoxaparin Sodium 40 Mg/0.4 Ml Syringe SC 40 mg 0900 ELLIE Administration Gabapentin 300 mg 06/21/20 09:00 06/24/20 14:25 Gabapentin 300 Mg Cap PO 300 mg TID ELLIE Administration Lisinopril 20 mg 06/21/20 09:00 06/24/20 08:16 Lisinopril 20 Mg Tab PO 20 mg DAILY ELLIE Administration Morphine Sulfate 2 mg 06/20/20 20:29 06/24/20 08:17 Morphine 2 Mg/Ml Vial SLOW IVP 2 mg Q4H PRN Administration Moderate Pain (4-6) Morphine Sulfate 4 mg 06/20/20 20:29 06/24/20 12:28 Morphine 4 Mg/Ml Vial SLOW IVP 4 mg Q4H PRN Administration Severe Pain (7-10) Senna/Docusate Sodium 1 tab 06/22/20 21:00 06/24/20 08:16 Senokot S 8.6-50 Mg Tab PO 1 tab BID ELLIE Administration Sodium Chloride 10 ml 06/20/20 22:35 06/24/20 00:51 Flush - Normal Saline 10 Ml Syringe IVF 10 ml PRN PRN Administration Saline Flush - Exam General Appearance: awake alert Neck: supple, symmetric Heart: RRR Respiratory: CTAB Extremities: no cyanosis Skin: no rashes Psychiatric: normal affect, normal behavior Hosp A/P - Plan - Plan Plan: Assessment/plan: Osteolytic hip mass Secondary to metastatic prostate cancer. Patient to start radiation therapy tomorrow. History of prostate cancer Medical oncology and radiation oncology services following. Hypertension Controlled and stable. Hyperlipidemia Patient is on Lipitor 40 mg at bedtime. Peripheral vascular disease Patient is Plavix
[2020-06-24] MEDS: Atorvastatin Calcium 40 MG TAB PO SCH (20:04)
[2020-06-24] MEDS: Amlodipine 10 MG TAB PO SCH (20:06)
[2020-06-25] MEDS: Morphine 4 MG/ML VIAL SLOW IVP PRN ×5 (02:01→20:16)
[2020-06-25 05:55] LABS: #Eosinphils 0.3 thou/uL (0.0-0.7); #Lymphocytes 2.6 thou/uL (1.20-3.40); #Monocytes 0.7 thou/uL (0.11-0.59); #Neutrophils 6.1 thou/uL (1.40-6.50); %Basophils 0.5 % (0.0-1.0); %Eosinophils 3.5 % (0.0-10.0); %Lymphocytes 26.9 % (21.0-51.0); %Monocytes 7.5 % (0.0-10.0); %Neutrophils 61.6 % (42.0-75.0); Hemoglobin 10.6 g/dL (14.0-18.0); Mean Corpuscular HGB CONC 33.2 g/dL (32.0-36.0); Mean Corpuscular Hemoglobin 31.6 pg (27.0-31.0); Mean Corpuscular Volume 95.1 fL (78.0-98.0); Mean Platelet Volume 6.4 fL (7.4-10.4); Platelet Count 266 thou/uL (130-400); RBC Distribution Width 11.6 % (11.5-14.5); Red Blood Cell (RBC) Count 3.34 mill/uL (4.70-6.10); White Blood Cell (WBC) Count 9.8 thou/uL (4.8-10.8)
[2020-06-25 06:01] LABS: Anion Gap 14 mmol/L (10-20); BUN (Urea Nitrogen) 9 mg/dL (8.4-25.7); Calc. Creatinine Clearance 151 mL/min (70-130); Calcium 8.7 mg/dL (7.8-10.44); Carbon Dioxide 25 mmol/L (23-31); Chloride 99 mmol/L (98-107); Glucose 114 mg/dL (80-115); Sodium 134 mmol/L (136-145)
[2020-06-25] MEDS: Gabapentin 300 MG CAP PO SCH ×3 (09:08→20:19)
[2020-06-25] MEDS: Senokot S 8.6-50 MG TAB PO SCH ×2 (09:08→20:18)
[2020-06-25] MEDS: Lisinopril 20 MG TAB PO SCH (09:08)
[2020-06-25] MEDS: Enoxaparin Sodium 40 MG/0.4 ML SYRINGE SC SCH (09:08)
[2020-06-25] MEDS: Carvedilol 6.25 MG TAB PO SCH ×2 (09:08→20:18)
--- NOTE | 2020-06-25 13:36 | PDOC.BPN ---
- Brief Progress Note Encounter Date: 06/25/20 Encounter Time: 13:25 Mr. Kiser is doing approximately the same as when I saw him last in hospital. Ambulating only with walker, limited due to pain. He said the biopsy was very painful. Physical exam is unchanged. We reviewed the path from biopsy that confirmed metastatic prostate cancer and discussed the treatment options, which include: 1. Aggressive management with transfer to tertiary hospital for extensive orthopedic surgery to pelvis followed by palliative radiation and systemic therapy per med onc. 2. Palliative radiation for pain and systemic therapy per med onc. 3. No active cancer treatment and hospice care. His major concern at this time is pain limiting his functional status and he wishes to proceed with the intermediate option. We again reviewed the role for radiation and anticipated side effects (skin irritation, lower urinary tract symptoms, loose stool, and fatigue). Written consent was obtained. Patient is in our clinic for CT simulation today to plan the radiation and will start radiation tomorrow. Plan to treat the left hemipelvis to 30 Gy in 10 fractions given daily M-F. Once patient is discharged from hospital, he should continue radiation as outpatient. Also placed palliative care consult and suspect patient would benefit from home health. Recap: - Metastatic prostate cancer. - Proceed with palliative XRT for pain to left hip given over 2 weeks. - Plan to start radiation on 06/26/2020. - Palliative care consulted.
--- NOTE | 2020-06-25 13:50 | CT ---
Left pelvic mass biopsy CT-guided Conscious sedation: At least 30 minutes spent with the patient for conscious sedation. FINDINGS: After explaining the procedure and answering all questions, limited CT imaging of the pelvi s was performed with patient supine. Sterile technique, buffered local anesthesia, CT guidance, conscious sedation, and a left anterolater al approach were used to carefully advance a 17-gauge trocar needle to the destructive left hip mass. Approach planned to avoid major vascular structures and the joint space. A total of 3 18-gauge core specimens were obtained and eventually submitted to pathology for evaluati on. Needle was removed. No evidence of complication. Patient tolerated the procedure well and was returne d in unchanged condition. IMPRESSION : Technically successful left hip mass biopsy. Pathology is pending. Transcribed Date/Time: 06/25/2020 1:49 PM
--- NOTE | 2020-06-25 15:16 | PDOC.PALCO ---
Palliative Care Consult - Consult Details Requesting Physician: Dr Peña, Dr Bonilla Reason for Consult: symptom management, coping issues - Pertinent HPI 65 year old male with known history of prostate cancer who had an onset of left hip pain six months ago that progressively became worse and he presented to the ER in [place] for evaluation. He was non compliant with treatment for prostate cancer. Evaluation in the emergency identified pathologic fractures to represent malignant neoplasm as well as in perirectal space a mass associated iwth edema of uncertain etiology. Transferred to [facility] for further evaluation and medical management. - Pertinent PMH Prostate cancer, hypertension, hyperlipidemia, PVD. - Social History Smoking Status: Current every day smoker Smoking: cigarettes Alcohol Use: rarely Drug Use History: none Living Situation: independent - Medications MAR Reviewed: Yes - Allergies Allergies/Adverse Reactions: Allergies Allergy/AdvReac Type Severity Reaction Status Date / Time No Known Allergies Allergy Unverified 06/20/20 21:12 - Subjective Sitting in bedside chair. States currently pain is a at a 2/10. Shooting primarily to left hip/upper extremity. Worse with movement/radiation. - ROS Constitutional: alert, weakness ENT: other (Denies difficulity swallowing, throat irritation, congestion) Respiratory: shortness of breath with extertion Cardiology: light headedness, other (Denies chest pain, palpitations) Gastrointestinal: other (Denies nausea, vomiting) Musculoskeletal: arthritis/arthralgias, leg pain Neurological: other (Denies confusion, headache) - Objective Vital Signs: Vital Signs - Most Recent Temp Pulse Resp BP Pulse Ox 98 F 72 16 108/55 L 96 06/25/20 08:00 06/25/20 08:00 06/25/20 08:00 06/25/20 08:00 06/25/20 08:35 Palliative Performance Scale: 50 - Physical Exam Constitutional: NAD, ill appearing HEENT: EOMI, moist MMs Respiratory: no rales, no rhonchi, no wheezing, unlabored breathing Cardiovascular: no significant murmur, RRR Gastrointestinal: continent, soft, non-tender, positive bowel sounds Genitourinary: continent Musculoskeletal: no cyanosis, no clubbing, edema present Deviation from normal: pain, decreased mobility left lower Neurology: moves all 4 limbs, no focal deficits Skin: cap refill <2 seconds, no lesions, no rash Psychiatric: A&O x 3, normal affect, normal mood - Problem List (1) History of prostate cancer Code(s): Z85.46 - PERSONAL HISTORY OF MALIGNANT NEOPLASM OF PROSTATE Current Visit: Yes Status: Acute (2) Metastasis Code(s): C79.9 - SECONDARY MALIGNANT NEOPLASM OF UNSPECIFIED SITE Current Visit: Yes Status: Acute (3) Pain Code(s): R52 - PAIN, UNSPECIFIED Current Visit: Yes Status: Acute (4) Palliative care encounter Code(s): Z51.5 - ENCOUNTER FOR PALLIATIVE CARE Current Visit: Yes Status: Acute - Plan/Recommendations Plan: Begin Dexamethasone 8mg IVP QD Discussed using Morphine 4mg IVP prior to radiation, as he states pain when resting is 1-2/10 but worse with manipulation and movement. Denies constipation, medication currently scheduled, will readdress if constipation onsets with continued use of morphine *Poor appetite, discuss this as well as energy may improve with use of Dexamethasone Suggest transition to PO equivalents when discharged. *Will reassess after radiation to see if increase in Morphine or alternative is needed. Will not see effect of Dexa for 24-[address] Bonilla, Dr Peña, and Dr Long [70] minutes spent on this encounter with >50% of the time in counseling and coordination of care. Thank you for this very appropriate consult.
[2020-06-25] MEDS ORDERED: Dexamethasone 4 mg/ml Vial SLOW IVP SCH (15:30)
--- NOTE | 2020-06-25 17:20 | PDOC.HOSPP ---
- Subjective Encounter Date: 06/25/20 Encounter Time: 10:30 Subjective: Patient seen of osteolytic lesion of the bone. No new complaints. - Objective Vital Signs & Weight: Vital Signs (12 hours) Temp Pulse Resp BP Pulse Ox 06/25/20 08:35 96 06/25/20 08:00 98 F 72 16 108/55 L 96 Weight Admit Weight 119 lb 5.008 oz Weight 220 lb I&O: 06/24/20 06/25/20 06/26/20 06:59 06:59 06:59 Intake Total 382 Balance 382 Result Diagrams: 06/25/20 04:59 06/25/20 04:59 Additional Labs: Labs and MAR reviewed by ma Hospitalist ROS - Review of Systems Cardiovascular: denies: chest pain, palpitations, orthopnea, paroxysmal noc. dyspnea, edema, light headedness Gastrointestinal: denies: nausea, vomiting, abdominal pain, diarrhea, constip ation, melena, hematochezia - Medication Medications: Active Medications Generic Name Dose Route Start Last Admin Trade Name Freq PRN Reason Stop Dose Admin Amlodipine Besylate 10 mg 06/21/20 21:00 06/24/20 20:06 Amlodipine 10 Mg Tab PO Not Given HS ELLIE Atorvastatin Calcium 40 mg 06/21/20 21:00 06/24/20 20:04 Atorvastatin Calcium 40 Mg Tab PO 40 mg HS ELLIE Administration Carvedilol 6.25 mg 06/21/20 09:00 06/25/20 09:08 Carvedilol 6.25 Mg Tab PO 6.25 mg BID ELLIE Administration Dexamethasone 8 mg 06/25/20 15:30 06/25/20 15:43 Dexamethasone 4 Mg/Ml Vial SLOW IVP 06/25/20 17:30 8 mg NOW ELLIE Administration Enoxaparin Sodium 40 mg 06/21/20 09:00 06/25/20 09:08 Enoxaparin Sodium 40 Mg/0.4 Ml Syringe SC 40 mg 0900 ELLIE Administration Gabapentin 300 mg 06/21/20 09:00 06/25/20 15:44 Gabapentin 300 Mg Cap PO 300 mg TID ELLIE Administration Lisinopril 20 mg 06/21/20 09:00 06/25/20 09:08 Lisinopril 20 Mg Tab PO 20 mg DAILY ELLIE Administration Morphine Sulfate 2 mg 06/20/20 20:29 06/24/20 08:17 Morphine 2 Mg/Ml Vial SLOW IVP 2 mg Q4H PRN Administration Moderate Pain (4-6) Morphine Sulfate 4 mg 06/20/20 20:29 06/25/20 15:48 Morphine 4 Mg/Ml Vial SLOW IVP 4 mg Q4H PRN Administration Severe Pain (7-10) Senna/Docusate Sodium 1 tab 06/22/20 21:00 06/25/20 09:08 Senokot S 8.6-50 Mg Tab PO 1 tab BID ELLIE Administration Sodium Chloride 10 ml 06/20/20 22:35 06/24/20 00:51 Flush - Normal Saline 10 Ml Syringe IVF 10 ml PRN PRN Administration Saline Flush - Exam General Appearance: awake alert Eye: anicteric sclera ENT: moist mucosa Neck: supple Heart: RRR Respiratory: no wheezes, no rales Gastrointestinal: soft Skin: no rashes Neurological: cranial nerve grossly intact Psychiatric: normal affect Hosp A/P - Plan - Plan Plan: Assessment/plan: Osteolytic hip mass Patient to start radiation therapy today for metastatic prostate cancer. History of prostate cancer Medical oncology and radiation oncology services following. Hypertension Monitor vital signs and titrate antihypertensives as needed. Hyperlipidemia Continue Lipitor Peripheral vascular disease Patient is on Plavix
[2020-06-25] MEDS: Atorvastatin Calcium 40 MG TAB PO SCH (20:18)
[2020-06-25] MEDS: Amlodipine 10 MG TAB PO SCH (20:19)
[2020-06-26] MEDS: Morphine 4 MG/ML VIAL SLOW IVP PRN ×6 (01:33→23:08)
[2020-06-26] MEDS: Senokot S 8.6-50 MG TAB PO SCH ×2 (09:02→20:27)
[2020-06-26] MEDS: Gabapentin 300 MG CAP PO SCH ×3 (09:02→20:28)
[2020-06-26] MEDS: Dexamethasone 4 mg/ml Vial SLOW IVP SCH (09:03)
[2020-06-26] MEDS: Enoxaparin Sodium 40 MG/0.4 ML SYRINGE SC SCH (09:04)
[2020-06-26] MEDS: Carvedilol 6.25 MG TAB PO SCH ×2 (09:05→20:28)
[2020-06-26] MEDS: Lisinopril 20 MG TAB PO SCH (09:05)
--- NOTE | 2020-06-26 09:26 | PDOC.PALPN ---
Palliative Progress Note - Subjective Pain 2/10. States continues to be tolerable with non use, minimal activity. Frustrated over diet. - Objective Vital Signs: Vital Signs - Most Recent Temp Pulse Resp BP Pulse Ox 97.7 F 72 16 116/55 L 98 06/26/20 07:28 06/26/20 09:05 06/26/20 07:28 06/26/20 09:05 06/26/20 07:28 - Physical Exam Constitutional: NAD, ill appearing Deviation from normal: Sunken ocular bed HEENT: EOMI, moist MMs, PERRLA, sclera anicteric Respiratory: clear to auscultation bilateral, no wheezing, unlabored breathing Cardiovascular: RRR Gastrointestinal: soft, non-tender Deviation from normal: obese Genitourinary: continent Musculoskeletal: no cyanosis, no clubbing Deviation from normal: decreased mobility, uses walker, pain left lower extremity Neurology: moves all 4 limbs, no focal deficits Skin: cap refill <2 seconds, no lesions Psychiatric: A&O x 3, normal affect, normal mood - Plan Plan: Communicated with patient and nurse to use 4mg morphine prior to radiation. Received Dexa, teaching with patient we should see improvement in 24-48 hours. Reviewed palliative nature of radiation, and began to discuss goal of care. Discussed if side effects occur from Radiation to communicate changes and we can manage symptoms as they present. Requested regular diet, frustrated over heart healthy. Introduced Home health, will revisit when patient son arrives at patient request. [30] minutes spent on this encounter with >50% of the time in counseling and coordination of care. - ROS Constitutional: alert, weakness ENT: other (Deneis congestion, difficulity swallowing) Respiratory: other (Denies cough, congestion, shortness of breath) Cardiology: other (Denies chest pain, palpitatins) Gastrointestinal: other (Denies diarrhea, constipation, abdominal discomfort) Genitourinary: other (Denies dysuris, frequency, hematuria) Musculoskeletal: leg pain, limited mobility Skin: other (Negative for rash, puritis)
--- NOTE | 2020-06-26 13:47 | PQF ---
CLINICAL DOCUMENTATION CLARIFICATION FORM: Dear Dr. Bonilla Date: 06/26/20 Please exercise your independent, professional judgment in responding to the clarification form. Clinical indicators are provided on the bottom of this form for your review. Please check appropriate box(es): [ ] Protein Calorie Malnutrition: [ ] Mild [ ] Moderate [ ] Severe [ ] Other Malnutrition (please specify) [ ] Underweight without malnutrition [ ] Cachexia [ ] Other diagnosis [ ] Unable to determine In addition, please specify: Present on Admission (POA): [ ] Yes [ ] No [ ] Unable to determine For continuity of documentation, please document condition throughout progress notes and discharge summary. Thank You. To be completed by CDI/Coding staff for physician review: CLINICAL INDICATORS - SIGNS / SYMPTOMS / LABS / RESULTS AND LOCATION IN MR Consult ([facility]): he has had some weight loss over the last few months, but he is unable to quantify. His appetite is low, he says because of pain. Dietary Assessment 06/21: "mild generalized muscle and fat wasting suggestive of moderate malnutrition in the context of chronic illness." BMI 29.8 RISK FACTORS / RESULTS AND LOCATION IN MR Consult ([facility]): he has had some weight loss over the last few months, but he is unable to quantify. His appetite is low, he says because of pain. TREATMENT / RESULTS AND LOCATION IN MR Recommendation of Ensure Enlive supplements (Dietary assessment 06/21) Moderate Malnutrition (in acute illness) Energy Intake: <75% of estimated energy requirement for > 7 days Weight Loss: 1-2%/1 week; 5%/ 1 month; 7.5%/3 months Other: mild body fat loss; mild muscle mass loss; mild fluid accumulation; Severe Malnutrition (in acute illness) Energy Intake: = 50% of estimated energy requirement for = 5 days Weight Loss: >2%/1 week; >5%/1 month; >7.5%/3 months Other: moderate body fat loss; moderate muscle mass loss; moderate- severe fluid accumulation; measurably reduced registered nurse step down strength Moderate Malnutrition (in chronic illness) Energy Intake: <75% of estimated energy requirement for =1 month Weight Loss: 5%/1 month; 7.5%/3 months; 10%/6 months; 20%/1 year Other: mild body fat loss; mild muscle mass loss; mild fluid accumulation Severe Malnutrition (in chronic illness) Energy Intake: =75% of estimated energy requirement for =1 month Weight Loss: >5%/1 month; >7.5%/3 months; >10%/6 months; >20%/1 year Other: severe body fat loss; severe muscle mass loss; severe fluid accumulation; measurably reduced registered nurse step down strength CDS Signature: Gisell Riggins RN Phone #: [phone] Date: 06/26/20 This is a permanent part of the Medical Record [facility]
--- NOTE | 2020-06-26 14:09 | PDOC.HOSPP ---
- Subjective Encounter Date: 06/26/20 Encounter Time: 07:00 Subjective: Patient seen for follow-up regarding postoperative pelvic lesion. He is awaiting radiation therapy. - Objective Vital Signs & Weight: Vital Signs (12 hours) Temp Pulse Resp BP BP Pulse Ox 06/26/20 09:05 72 116/55 L 06/26/20 07:28 97.7 F 72 16 107/54 L 98 Weight Admit Weight 119 lb 5.008 oz Weight 220 lb I&O: 06/25/20 06/26/20 06/27/20 06:59 06:59 06:59 Intake Total 960 Output Total 550 Balance 410 Result Diagrams: 06/25/20 04:59 06/25/20 04:59 Additional Labs: Labs and MAR reviewed by mo Hospitalist ROS - Review of Systems Skin: denies: rash, lesions, elana, bruising Neurological: denies: weakness, numbness, incoordination, change in speech, confusion, seizures - Medication Medications: Active Medications Generic Name Dose Route Start Last Admin Trade Name Hubertq PRN Reason Stop Dose Admin Amlodipine Besylate 10 mg 06/21/20 21:00 06/25/20 20:19 Amlodipine 10 Mg Tab PO Not Given HS ELLIE Atorvastatin Calcium 40 mg 06/21/20 21:00 06/25/20 20:18 Atorvastatin Calcium 40 Mg Tab PO 40 mg HS ELLIE Administration Carvedilol 6.25 mg 06/21/20 09:00 06/26/20 09:05 Carvedilol 6.25 Mg Tab PO 6.25 mg BID ELLIE Administration Dexamethasone 8 mg 06/26/20 09:00 06/26/20 09:03 Dexamethasone 4 Mg/Ml Vial SLOW IVP 8 mg DAILY ELLIE Administration Enoxaparin Sodium 40 mg 06/21/20 09:00 06/26/20 09:04 Enoxaparin Sodium 40 Mg/0.4 Ml Syringe SC 40 mg 0900 ELLIE Administration Gabapentin 300 mg 06/21/20 09:00 06/26/20 09:02 Gabapentin 300 Mg Cap PO 300 mg TID ELLIE Administration Lisinopril 20 mg 06/21/20 09:00 06/26/20 09:05 Lisinopril 20 Mg Tab PO 20 mg DAILY ELLIE Administration Morphine Sulfate 2 mg 06/20/20 20:29 06/24/20 08:17 Morphine 2 Mg/Ml Vial SLOW IVP 2 mg Q4H PRN Administration Moderate Pain (4-6) Morphine Sulfate 4 mg 06/20/20 20:29 06/26/20 10:40 Morphine 4 Mg/Ml Vial SLOW IVP 4 mg Q4H PRN Administration Severe Pain (7-10) Senna/Docusate Sodium 1 tab 06/22/20 21:00 06/26/20 09:02 Senokot S 8.6-50 Mg Tab PO 1 tab BID ELLIE Administration Sodium Chloride 10 ml 06/20/20 22:35 06/26/20 10:41 Flush - Normal Saline 10 Ml Syringe IVF 10 ml PRN PRN Administration Saline Flush - Exam General Appearance: awake alert Eye: anicteric sclera ENT: moist mucosa Neck: supple Heart: RRR Respiratory: CTAB Gastrointestinal: soft Extremities: no edema Skin: no rashes Psychiatric: normal affect, normal behavior Hosp A/P - Plan - Plan Plan: Assessment/plan: Osteolytic hip mass Secondary to metastatic prostate cancer. Patient to start radiation therapy today. Hypertension Controlled and stable. Hyperlipidemia Patient is on Lipitor Peripheral vascular disease Continue Plavix Moderate protein calorie malnutrition Present on admission
[2020-06-26] MEDS: Amlodipine 10 MG TAB PO SCH (20:28)
[2020-06-26] MEDS: Atorvastatin Calcium 40 MG TAB PO SCH (20:28)
[2020-06-27] MEDS: Morphine 4 MG/ML VIAL SLOW IVP PRN ×6 (02:56→23:57)
[2020-06-27] MEDS: Dexamethasone 4 mg/ml Vial SLOW IVP SCH (08:01)
[2020-06-27] MEDS: Gabapentin 300 MG CAP PO SCH ×3 (08:04→20:15)
[2020-06-27] MEDS: Lisinopril 20 MG TAB PO SCH (08:04)
[2020-06-27] MEDS: Carvedilol 6.25 MG TAB PO SCH ×2 (08:04→20:14)
[2020-06-27] MEDS: Senokot S 8.6-50 MG TAB PO SCH ×2 (08:04→20:14)
[2020-06-27] MEDS: Enoxaparin Sodium 40 MG/0.4 ML SYRINGE SC SCH (08:05)
--- NOTE | 2020-06-27 16:19 | PDOC.PALPN ---
Palliative Progress Note - Subjective Sitting at bedside. States his pain has improved, and mostly intermittent, appears neuropathic in nature. Limited mobility, utilizes walker. - Objective Vital Signs: Vital Signs - Most Recent Temp Pulse Resp BP Pulse Ox 97.8 F 66 18 138/62 99 06/27/20 07:50 06/27/20 07:50 06/27/20 07:50 06/27/20 07:50 06/27/20 07:50 - Physical Exam Constitutional: NAD, ill appearing HEENT: EOMI, moist MMs, PERRLA Respiratory: no rales, no wheezing, unlabored breathing Cardiovascular: RRR Gastrointestinal: continent, soft, non-tender Deviation from normal: obese Genitourinary: continent Musculoskeletal: edema present Deviation from normal: pain, decreased mobility pain left lower extremity and hip Neurology: moves all 4 limbs Skin: cap refill <2 seconds, no lesions, no rash Psychiatric: A&O x 3, normal mood - Assessment (1) History of prostate cancer Code(s): Z85.46 - PERSONAL HISTORY OF MALIGNANT NEOPLASM OF PROSTATE Current Visit: Yes Status: Acute (2) Metastasis Code(s): C79.9 - SECONDARY MALIGNANT NEOPLASM OF UNSPECIFIED SITE Current Visit: Yes Status: Acute (3) Palliative care encounter Code(s): Z51.5 - ENCOUNTER FOR PALLIATIVE CARE Current Visit: Yes Status: Acute (4) Pain Code(s): R52 - PAIN, UNSPECIFIED Current Visit: Yes Status: Acute - Plan Plan: Revisited directive to physician with patient and his son. Goal Of Care: Continue radiation Improve pain, will increase Gabapentin 600 TID as renal function adequate. Tolerating Dexa - believes pain overall improved. Remains with shooting pain intermittently Discussed discharge, patient will transition to home setting with Son and his daughter in law Unsure if home health can follow/unfunded Daughter in law to assist with follow up appointments and continuity of care Poor health literacy, in attempting teach back method patient and son have difficulty relaying information provided to them. Will continue to support and provide assistance with disease education [45] minutes spent on this encounter with >50% of the time in counseling and coordination of care. - ROS Constitutional: alert, weakness ENT: other (Denies difficulity swallowing, congestion) Respiratory: other (Denies shortness of breath, congestion) Gastrointestinal: bloating Genitourinary: hesitancy Musculoskeletal: leg pain, limited mobility Neurological: other (Shooting pain, left lower extremity)
--- NOTE | 2020-06-27 17:11 | PDOC.HOSPP ---
- Subjective Encounter Date: 06/27/20 Encounter Time: 07:00 Subjective: Patient seen for follow-up regarding pelvic lesion. He reports pain is better. - Objective Vital Signs & Weight: Vital Signs (12 hours) Temp Pulse Resp BP Pulse Ox 06/27/20 07:50 97.8 F 66 18 138/62 99 Weight Admit Weight 119 lb 5.008 oz Weight 220 lb I&O: 06/26/20 06/27/20 06/28/20 06:59 06:59 06:59 Intake Total 960 400 Output Total 550 Balance 410 400 Result Diagrams: 06/25/20 04:59 06/25/20 04:59 Additional Labs: Labs and MAR reviewed by co Hospitalist ROS - Review of Systems Cardiovascular: denies: chest pain, palpitations, orthopnea, paroxysmal noc. dyspnea, edema, light headedness Gastrointestinal: denies: nausea, vomiting, abdominal pain, diarrhea, constipation, melena, hematochezia - Medication Medications: Active Medications Generic Name Dose Route Start Last Admin Trade Name Freq PRN Reason Stop Dose Admin Amlodipine Besylate 10 mg 06/21/20 21:00 06/26/20 20:28 Amlodipine 10 Mg Tab PO Not Given HS ELLIE Atorvastatin Calcium 40 mg 06/21/20 21:00 06/26/20 20:28 Atorvastatin Calcium 40 Mg Tab PO 40 mg HS ELLIE Administration Carvedilol 6.25 mg 06/21/20 09:00 06/27/20 08:04 Carvedilol 6.25 Mg Tab PO 6.25 mg BID ELLIE Administration Dexamethasone 8 mg 06/26/20 09:00 06/27/20 08:01 Dexamethasone 4 Mg/Ml Vial SLOW IVP 8 mg DAILY ELLIE Administration Enoxaparin Sodium 40 mg 06/21/20 09:00 06/27/20 08:05 Enoxaparin Sodium 40 Mg/0.4 Ml Syringe SC 40 mg 0900 ELLIE Administration Lisinopril 20 mg 06/21/20 09:00 06/27/20 08:04 Lisinopril 20 Mg Tab PO 20 mg DAILY ELLIE Administration Morphine Sulfate 2 mg 06/20/20 20:29 06/24/20 08:17 Morphine 2 Mg/Ml Vial SLOW IVP 2 mg Q4H PRN Administration Moderate Pain (4-6) Morphine Sulfate 4 mg 06/20/20 20:29 06/27/20 15:58 Morphine 4 Mg/Ml Vial SLOW IVP 4 mg Q4H PRN Administration Severe Pain (7-10) Senna/Docusate Sodium 1 tab 06/22/20 21:00 06/27/20 08:04 Senokot S 8.6-50 Mg Tab PO 1 tab BID ELLIE Administration Sodium Chloride 10 ml 06/20/20 22:35 06/26/20 10:41 Flush - Normal Saline 10 Ml Syringe IVF 10 ml PRN PRN Administration Saline Flush - Exam General Appearance: awake alert ENT: moist mucosa Neck: supple Heart: RRR Respiratory: CTAB Gastrointestinal: soft, non-tender Extremities: no edema Skin: no rashes Psychiatric: normal affect Hosp A/P - Plan Patient is a pleasant 60-year-old gentleman who was admitted to the hospital on June 20, [address] for left hip pain. CT scan of the pelvis done on June 20 showed large bone destroying mass of the left ilium, including destruction of left acetabular roof. He was seen by orthopedic surgery service, who recommended transfer to tertiary care center for surgery. The process was initiated. He was subsequently seen by medical oncology service, who recommended biopsy. He underwent CT-guided biopsy. Pathology report showed metastases consistent with prostate primary. He was subsequently seen by radiation oncology service. He has been started on radiation therapy as inpatient. He is also being followed by palliative care team for pain management. - Plan Plan: Assessment/plan: Bone metastases metastatic prostate cancer. Patient started on RTX. Hypertension Controlled Hyperlipidemia Continue Lipitor Peripheral vascular disease Continue Plavix Moderate protein calorie malnutrition Present on admission Palliative care following for symptom management.
[2020-06-27] MEDS: Atorvastatin Calcium 40 MG TAB PO SCH (20:14)
[2020-06-27] MEDS: Amlodipine 10 MG TAB PO SCH (20:15)
[2020-06-28] MEDS: Morphine 4 MG/ML VIAL SLOW IVP PRN ×5 (03:58→20:00)
[2020-06-28] MEDS: Lisinopril 20 MG TAB PO SCH (08:14)
[2020-06-28] MEDS: Dexamethasone 4 mg/ml Vial SLOW IVP SCH (08:14)
[2020-06-28] MEDS: Senokot S 8.6-50 MG TAB PO SCH ×2 (08:14→20:01)
[2020-06-28] MEDS: Gabapentin 300 MG CAP PO SCH ×3 (08:14→20:01)
[2020-06-28] MEDS: Carvedilol 6.25 MG TAB PO SCH ×2 (08:14→20:01)
[2020-06-28] MEDS: Enoxaparin Sodium 40 MG/0.4 ML SYRINGE SC SCH (08:16)
--- NOTE | 2020-06-28 12:26 | PDOC.HOSPP ---
- Subjective Encounter Date: 06/28/20 Encounter Time: 10:00 Subjective: F/u: metsatatic prostate cancer The patient states his pain has improved in his hip with increased gabapentin dose. He is on day 08/20 of radiation He denies shortness of breath. He has difficulty walking with left leg - Objective Vital Signs & Weight: Vital Signs (12 hours) Temp Pulse Resp BP Pulse Ox 06/28/20 08:00 98.6 F 63 18 143/95 H 98 Weight Admit Weight 119 lb 5.008 oz Weight 220 lb I&O: 06/27/20 06/28/20 06/29/20 06:59 06:59 06:59 Intake Total 1200 Balance 1200 Result Diagrams: 06/25/20 04:59 06/25/20 04:59 Hospitalist ROS - Review of Systems Constitutional: denies: fever, chills - Medication Medications: Active Medications Generic Name Dose Route Start Last Admin Trade Name Freq PRN Reason Stop Dose Admin Amlodipine Besylate 10 mg 06/21/20 21:00 06/27/20 20:15 Amlodipine 10 Mg Tab PO Not Given HS ELLIE Atorvastatin Calcium 40 mg 06/21/20 21:00 06/27/20 20:14 Atorvastatin Calcium 40 Mg Tab PO 40 mg HS ELLIE Administration Carvedilol 6.25 mg 06/21/20 09:00 06/28/20 08:14 Carvedilol 6.25 Mg Tab PO 6.25 mg BID ELLIE Administration Dexamethasone 8 mg 06/26/20 09:00 06/28/20 08:14 Dexamethasone 4 Mg/Ml Vial SLOW IVP 8 mg DAILY ELLIE Administration Enoxaparin Sodium 40 mg 06/21/20 09:00 06/28/20 08:16 Enoxaparin Sodium 40 Mg/0.4 Ml Syringe SC 40 mg 09 ELLIE Administration Gabapentin 600 mg 06/27/20 21:00 06/28/20 08:14 Gabapentin 300 Mg Cap PO 600 mg TID ELLIE Administration Lisinopril 20 mg 06/21/20 09:00 06/28/20 08:14 Lisinopril 20 Mg Tab PO 20 mg DAILY ELLIE Administration Morphine Sulfate 2 mg 06/20/20 20:29 06/24/20 08:17 Morphine 2 Mg/Ml Vial SLOW IVP 2 mg Q4H PRN Administration Moderate Pain (4-6) Morphine Sulfate 4 mg 06/20/20 20:29 06/28/20 12:18 Morphine 4 Mg/Ml Vial SLOW IVP 4 mg Q4H PRN Administration Severe Pain (7-10) Senna/Docusate Sodium 1 tab 06/22/20 21:00 06/28/20 08:14 Senokot S 8.6-50 Mg Tab PO 1 tab BID ELLIE Administration Sodium Chloride 10 ml 06/20/20 22:35 06/26/20 10:41 Flush - Normal Saline 10 Ml Syringe IVF 10 ml PRN PRN Administration Saline Flush - Exam General Appearance: NAD, awake alert Eye: PERRL, anicteric sclera ENT: normocephalic atraumatic, no oropharyngeal lesions Heart: RRR Respiratory: normal chest expansion Gastrointestinal: soft, non-distended Extremities: no cyanosis, no edema Extremities - other findings: no palpable mass on the left hip . Skin: normal turgor, no lesions, no rashes Neurological: cranial nerve grossly intact, normal sensation to touch, no weakness Musculoskeletal - other findings: Difficulty lifting left leg off the bed Hosp A/P - Plan CT chest/abdomen/pelvis: Large blistering osteolytic mass of the left iliac bone including the acetabular roof. Severe osteoarthrosis of the left hip. Mild thickening and distention of the urinary bladder. Soft tissue mass with surrounding edema in the right posterior pelvic cavity. Questionable hepatic cirrhosis This is a 65 year old male who presented with left hip pain, was found to have metastatic prostate cancer on bone biopsy #Metastatic prostate cancer to the left hip - continue radiation treatment for approximately ten days . Continue gabapentin 600 mg tid - will add physical therapy #Possible hepatic cirrhosis - noted on CT abdomen. No signs of decompensated cirrhosis currently will mo nitor #Hypertension #Hyperlipidemia - continue atorvastatin, amlodipine, coreg
[2020-06-28] MEDS: Amlodipine 10 MG TAB PO SCH (20:01)
[2020-06-28] MEDS: Atorvastatin Calcium 40 MG TAB PO SCH (20:01)
[2020-06-28] MEDS ORDERED: Bisacodyl 10 MG SUPP PR PRN (23:16)
[2020-06-29] MEDS: Morphine 4 MG/ML VIAL SLOW IVP PRN ×6 (00:04→21:47)
[2020-06-29] MEDS: Gabapentin 300 MG CAP PO SCH ×3 (08:02→21:42)
[2020-06-29] MEDS: Lisinopril 20 MG TAB PO SCH (08:03)
[2020-06-29] MEDS: Dexamethasone 4 mg/ml Vial SLOW IVP SCH (08:03)
[2020-06-29] MEDS: Enoxaparin Sodium 40 MG/0.4 ML SYRINGE SC SCH (08:03)
[2020-06-29] MEDS: Senokot S 8.6-50 MG TAB PO SCH ×2 (08:03→21:43)
[2020-06-29] MEDS: Carvedilol 6.25 MG TAB PO SCH ×2 (08:03→21:42)
--- NOTE | 2020-06-29 12:51 | PDOC.HOSPP ---
- Subjective Encounter Date: 06/29/20 Encounter Time: 09:00 Subjective: F/u: metastatic prostate cancer to left thihg The patient still has pain in left leg and intermittent spasms. He will rec eive next radiation on Tuesday . His left leg is still weak - Objective Vital Signs & Weight: Vital Signs (12 hours) Temp Pulse Resp BP Pulse Ox 06/29/20 08:00 97.6 F 66 18 152/71 H 99 Weight Admit Weight 119 lb 5.008 oz Weight 220 lb I&O: 06/28/20 06/29/20 06/30/20 06:59 06:59 06:59 Intake Total 1200 2160 Balance 1200 2160 Result Diagrams: 06/25/20 04:59 06/25/20 04:59 Hospitalist ROS - Review of Systems Constitutional: denies: fever, chills - Medication Medications: Active Medications Generic Name Dose Route Start Last Admin Trade Name Freq PRN Reason Stop Dose Admin Amlodipine Besylate 10 mg 06/21/20 21:00 06/28/20 20:01 Amlodipine 10 Mg Tab PO Not Given HS ELLIE Atorvastatin Calcium 40 mg 06/21/20 21:00 06/28/20 20:01 Atorvastatin Calcium 40 Mg Tab PO 40 mg HS ELLIE Administration Carvedilol 6.25 mg 06/21/20 09:00 06/29/20 08:03 Carvedilol 6.25 Mg Tab PO 6.25 mg BID ELLIE Administration Dexamethasone 8 mg 06/26/20 09:00 06/29/20 08:03 Dexamethasone 4 Mg/Ml Vial SLOW IVP 8 mg DAILY ELLIE Administration Enoxaparin Sodium 40 mg 06/21/20 09:00 06/29/20 08:03 Enoxaparin Sodium 40 Mg/0.4 Ml Syringe SC 40 mg 899 ELLIE Administration Gabapentin 600 mg 06/27/20 21:00 06/29/20 08:02 Gabapentin 300 Mg Cap PO 600 mg TID ELLIE Administration Lisinopril 20 mg 06/21/20 09:00 06/29/20 08:03 Lisinopril 20 Mg Tab PO 20 mg DAILY ELLIE Administration Morphine Sulfate 2 mg 06/20/20 20:29 06/24/20 08:17 Morphine 2 Mg/Ml Vial SLOW IVP 2 mg Q4H PRN Administration Moderate Pain (4-6) Morphine Sulfate 4 mg 06/20/20 20:29 06/29/20 12:12 Morphine 4 Mg/Ml Vial SLOW IVP 4 mg Q4H PRN Administration Severe Pain (7-10) Senna/Docusate Sodium 1 tab 06/22/20 21:00 06/29/20 08:03 Senokot S 8.6-50 Mg Tab PO 1 tab BID ELLIE Administration Sodium Chloride 10 ml 06/20/20 22:35 06/26/20 10:41 Flush - Normal Saline 10 Ml Syringe IVF 10 ml PRN PRN Administration Saline Flush - Exam General Appearance: NAD, awake alert Eye: PERRL, anicteric sclera ENT: normocephalic atraumatic, no oropharyngeal lesions Neck: no JVD Heart: RRR Respiratory: normal chest expansion Gastrointestinal: soft, non-tender, non-distended, normal bowel sounds Extremities: no cyanosis, no clubbing, no edema Extremities - other findings: no palpable mass in thigh. Skin: normal turgor, no lesions, no rashes Neurological: cranial nerve grossly intact, normal sensation to touch Musculoskeletal - other findings: Pain with lifting left leg and decreased range of motion Hosp A/P - Plan CT chest/abdomen/pelvis: Large blistering osteolytic mass of the left iliac bone including the acetabular roof. Severe osteoarthrosis of the left hip. Mild thickening and distention of the urinary bladder. Soft tissue mass with surrounding edema in the right posterior pelvic cavity. Questionable hepatic cirrhosis This is a 65 year old male who presented with left hip pain, was found to have metastatic prostate cancer on bone biopsy #Metastatic prostate cancer to the left hip - continue radiation treatment for approximately ten days, next dose tomorrow . Continue gabapentin 600 mg tid. Will add naproxen and flexeril prn - continue with PT #Possible hepatic cirrhosis - noted on CT abdomen. No signs of decompensated cirrhosis currently will m onitor #Hypertension #Hyperlipidemia - continue atorvastatin, amlodipine, coreg
[2020-06-29] MEDS: Cyclobenzaprine 10 MG TAB PO PRN (14:52)
[2020-06-29] MEDS: Amlodipine 10 MG TAB PO SCH (21:42)
[2020-06-29] MEDS: Atorvastatin Calcium 40 MG TAB PO SCH (21:42)
[2020-06-29] MEDS: Naproxen 500 MG TAB PO SCH (23:12)
[2020-06-30] MEDS: Naproxen 500 MG TAB PO SCH ×3 (00:20→20:21)
[2020-06-30] MEDS: Cyclobenzaprine 10 MG TAB PO PRN ×3 (00:25→17:53)
[2020-06-30] MEDS: Morphine 4 MG/ML VIAL SLOW IVP PRN ×3 (02:12→09:51)
[2020-06-30 07:33] LABS: Hemoglobin 12.5 g/dL (14.0-18.0)
[2020-06-30] MEDS: Carvedilol 6.25 MG TAB PO SCH ×2 (08:17→20:21)
[2020-06-30] MEDS: Dexamethasone 4 mg/ml Vial SLOW IVP SCH (08:17)
[2020-06-30] MEDS: Enoxaparin Sodium 40 MG/0.4 ML SYRINGE SC SCH (08:17)
[2020-06-30] MEDS: Lisinopril 20 MG TAB PO SCH (08:18)
[2020-06-30] MEDS: Gabapentin 300 MG CAP PO SCH ×3 (08:18→20:21)
[2020-06-30] MEDS: Senokot S 8.6-50 MG TAB PO SCH ×2 (08:19→20:21)
[2020-06-30] MEDS ORDERED: Morphine IR 10 MG/5 ML UDCUP PER TUBE PRN (10:44)
[2020-06-30] MEDS: Morphine IR 10 MG/5 ML UDCUP PO PRN ×3 (13:54→23:25)
--- NOTE | 2020-06-30 14:34 | PDOC.HOSPP ---
- Subjective Encounter Date: 06/30/20 Encounter Time: 07:00 Subjective: F/u: metastatic prostate cancer The patient was seen standing up using the walker and is able to ambulate some but still has significant pain. Per nursing, he asks for his pain meds around the clock . Patient is unable to come to radiation therapy daily and needs radiation until 07/09 - Objective Vital Signs & Weight: Vital Signs (12 hours) Temp Pulse Resp BP BP Pulse Ox 06/30/20 08:18 119/56 L 06/30/20 08:17 119/56 L 06/30/20 08:00 97.3 F L 68 16 119/56 L 99 Weight Admit Weight 119 lb 5.008 oz Weight 220 lb I&O: 06/29/20 06/30/20 07/01/20 06:59 06:59 06:59 Intake Total 2160 3390 Balance 2160 3390 Result Diagrams: 06/30/20 06:58 06/25/20 04:59 Hospitalist ROS - Review of Systems Constitutional: denies: fever, chills - Medication Medications: Active Medications Generic Name Dose Route Start Last Admin Trade Name Freq PRN Reason Stop Dose Admin Amlodipine Besylate 10 mg 06/21/20 21:00 06/29/20 21:42 Amlodipine 10 Mg Tab PO 10 mg HS ELLIE Administration Atorvastatin Calcium 40 mg 06/21/20 21:00 06/29/20 21:42 Atorvastatin Calcium 40 Mg Tab PO 40 mg HS ELLIE Administration Carvedilol 6.25 mg 06/21/20 09:00 06/30/20 08:17 Carvedilol 6.25 Mg Tab PO 6.25 mg BID ELLIE Administration Cyclobenzaprine HCl 5 mg 06/29/20 09:51 06/30/20 09:54 Cyclobenzaprine 10 Mg Tab PO 5 mg TIDPRN PRN Administration Muscle Spasm Dexamethasone 8 mg 06/26/20 09:00 06/30/20 08:17 Dexamethasone 4 Mg/Ml Vial SLOW IVP 8 mg DAILY ELLIE Administration Enoxaparin Sodium 40 mg 06/21/20 09:00 06/30/20 08:17 Enoxaparin Sodium 40 Mg/0.4 Ml Syringe SC 40 mg 0900 ELLIE Administration Gabapentin 600 mg 06/27/20 21:00 06/30/20 08:18 Gabapentin 300 Mg Cap PO 600 mg TID ELLIE Administration Lisinopril 20 mg 06/21/20 09:00 06/30/20 08:18 Lisinopril 20 Mg Tab PO 20 mg DAILY ELLIE Administration Morphine Sulfate 2 mg 06/20/20 20:29 06/24/20 08:17 Morphine 2 Mg/Ml Vial SLOW IVP 2 mg Q4H PRN Administration Moderate Pain (4-6) Morphine Sulfate 4 mg 06/20/20 20:29 06/30/20 09:51 Morphine 4 Mg/Ml Vial SLOW IVP 4 mg Q4H PRN Administration Severe Pain (7-10) Morphine Sulfate 10 mg 06/30/20 11:45 06/30/20 13:54 Morphine Ir 10 Mg/5 Ml Udcup PO 10 mg Q4H PRN Administration Severe Pain (7-10) Naproxen 500 mg 06/29/20 21:00 06/30/20 09:04 Naproxen 500 Mg Tab PO 500 mg BID ELLIE Administration Pantoprazole Sodium 40 mg 06/30/20 09:00 06/30/20 08:18 Pantoprazole 40 Mg Tab PO 40 mg DAILY ELLIE Administration Senna/Docusate Sodium 1 tab 06/22/20 21:00 06/30/20 08:19 Senokot S 8.6-50 Mg Tab PO 1 tab BID ELLIE Administration Sodium Chloride 10 ml 06/20/20 22:35 06/26/20 10:41 Flush - Normal Saline 10 Ml Syringe IVF 10 ml PRN PRN Administration Saline Flush - Exam General Appearance: NAD, awake alert Eye: PERRL, anicteric sclera ENT: normocephalic atraumatic, no oropharyngeal lesions Neck: no JVD Heart: RRR, no murmur, no gallops, no rubs Respiratory: CTAB, no wheezes, no rales, no ronchi Gastrointestinal: soft Extremities - other findings: no mass in left leg. Patient with decreased ROM of left leg Skin: normal turgor, no lesions, no rashes Hosp A/P - Plan CT chest/abdomen/pelvis: Large blistering osteolytic mass of the left iliac bone including the acetabular roof. Severe osteoarthrosis of the left hip. Mild thickening and distention of the urinary bladder. Soft tissue mass with s urrounding edema in the right posterior pelvic cavity. Questionable hepatic cirrhosis This is a 65 year old male who presented with left hip pain, was found to have metastatic prostate cancer on bone biopsy #Metastatic prostate cancer to the left hip - continue radiation treatment until 07/09, patient is unable to drive daily for treatment. Continue gabapentin 600 mg tid. Continue naproxen and flexeril prn - will add morphine 10 mg po q4 hours prn #Possible hepatic cirrhosis - noted on CT abdomen. No signs of decompensated cirrhosis currently will monitor #Anemia - Hb 12.5, stable #Hypertension #Hyperlipidemia - continue atorvastatin, amlodipine, coreg
[2020-06-30] MEDS: Milk Of Magnesia 30 ML UDCUP PO PRN (18:25)
[2020-06-30] MEDS: Amlodipine 10 MG TAB PO SCH (20:21)
[2020-06-30] MEDS: Atorvastatin Calcium 40 MG TAB PO SCH (20:21)
[2020-07-01] MEDS: Morphine IR 10 MG/5 ML UDCUP PO PRN ×5 (03:34→19:31)
[2020-07-01] MEDS: Cyclobenzaprine 10 MG TAB PO PRN ×3 (04:08→19:33)
[2020-07-01] MEDS: Gabapentin 300 MG CAP PO SCH ×3 (07:40→19:30)
[2020-07-01] MEDS: Enoxaparin Sodium 40 MG/0.4 ML SYRINGE SC SCH (07:40)
[2020-07-01] MEDS: Naproxen 500 MG TAB PO SCH ×2 (07:40→19:30)
[2020-07-01] MEDS: Senokot S 8.6-50 MG TAB PO SCH ×2 (07:41→19:31)
[2020-07-01] MEDS: Carvedilol 6.25 MG TAB PO SCH ×2 (07:41→19:33)
[2020-07-01] MEDS: Lisinopril 20 MG TAB PO SCH (07:42)
[2020-07-01] MEDS: Dexamethasone 4 mg/ml Vial SLOW IVP SCH (07:43)
[2020-07-01] MEDS ORDERED: Polyethylene Glycol 3350 17 GM Packet PO PRN (09:29)
[2020-07-01 09:48] LABS: Hemoglobin 11.9 g/dL (14.0-18.0); Mean Corpuscular HGB CONC 33.6 g/dL (32.0-36.0); Mean Corpuscular Hemoglobin 32.4 pg (27.0-31.0); Mean Corpuscular Volume 96.4 fL (78.0-98.0); Mean Platelet Volume 6.1 fL (7.4-10.4); Platelet Count 296 thou/uL (130-400); RBC Distribution Width 11.9 % (11.5-14.5); Red Blood Cell (RBC) Count 3.69 mill/uL (4.70-6.10); White Blood Cell (WBC) Count 12.3 thou/uL (4.8-10.8)
[2020-07-01 10:03] LABS: Anion Gap 15 mmol/L (10-20); BUN (Urea Nitrogen) 15 mg/dL (8.4-25.7); Calc. Creatinine Clearance 140 mL/min (70-130); Calcium 8.4 mg/dL (7.8-10.44); Carbon Dioxide 27 mmol/L (23-31); Chloride 100 mmol/L (98-107); Glucose 157 mg/dL (80-115); Potassium 3.8 mmol/L (3.5-5.1); Sodium 138 mmol/L (136-145)
--- NOTE | 2020-07-01 14:29 | PDOC.HOSPP ---
- Subjective Encounter Date: 07/01/20 Encounter Time: 09:00 Subjective: F/u: metastatic prostate cancer to left leg The patient still has significant pain in the left leg but it has improved kerry e. He is getting radiation therapy at 2:30 today . He denies tingling or numbness in his leg - Objective Vital Signs & Weight: Vital Signs (12 hours) Temp Pulse Resp BP BP Pulse Ox 07/01/20 08:45 98 07/01/20 08:02 97.1 F L 98 07/01/20 08:00 98 07/01/20 07:48 62 18 145/72 H 07/01/20 07:42 145/72 H 07/01/20 07:41 145/72 H Weight Admit Weight 119 lb 5.008 oz Weight 220 lb I&O: 06/30/20 07/01/20 07/02/20 06:59 06:59 06:59 Intake Total 3390 1470 Balance 3390 1470 Result Diagrams: 07/01/20 09:37 07/01/20 09:37 Hospitalist ROS - Review of Systems Constitutional: denies: fever, chills - Medication Medications: Active Medications Generic Name Dose Route Start Last Admin Trade Name Freq PRN Reason Stop Dose Admin Amlodipine Besylate 10 mg 06/21/20 21:00 06/30/20 20:21 Amlodipine 10 Mg Tab PO 10 mg HS ELLIE Administration Atorvastatin Calcium 40 mg 06/21/20 21:00 06/30/20 20:21 Atorvastatin Calcium 40 Mg Tab PO 40 mg HS ELLIE Administration Carvedilol 6.25 mg 06/21/20 09:00 07/01/20 07:41 Carvedilol 6.25 Mg Tab PO 6.25 mg BID ELLIE Administration Cyclobenzaprine HCl 5 mg 06/29/20 09:51 07/01/20 11:37 Cyclobenzaprine 10 Mg Tab PO 5 mg TIDPRN PRN Administration Muscle Spasm Dexamethasone 8 mg 06/26/20 09:00 07/01/20 07:43 Dexamethasone 4 Mg/Ml Vial SLOW IVP 8 mg DAILY ELLIE Administration Enoxaparin Sodium 40 mg 06/21/20 09:00 07/01/20 07:40 Enoxaparin Sodium 40 Mg/0.4 Ml Syringe SC 40 mg 09 ELLIE Administration Gabapentin 600 mg 06/27/20 21:00 07/01/20 07:40 Gabapentin 300 Mg Cap PO 600 mg TID ELLIE Administration Lisinopril 20 mg 06/21/20 09:00 07/01/20 07:42 Lisinopril 20 Mg Tab PO 20 mg DAILY ELLIE Administration Magnesium Hydroxide 30 ml 06/30/20 17:19 06/30/20 18:25 Milk Of Magnesia 30 Ml Udcup PO 30 ml DAILYPRN PRN Administration Constipation Morphine Sulfate 10 mg 06/30/20 11:45 07/01/20 11:36 Morphine Ir 10 Mg/5 Ml Udcup PO 10 mg Q4H PRN Administration Severe Pain (7-10) Naproxen 500 mg 06/29/20 21:00 07/01/20 07:40 Naproxen 500 Mg Tab PO 500 mg BID ELLIE Administration Pantoprazole Sodium 40 mg 06/30/20 09:00 07/01/20 07:42 Pantoprazole 40 Mg Tab PO 40 mg DAILY ELLIE Administration Polyethylene Glycol 17 gm 07/01/20 09:29 07/01/20 10:29 Polyethylene Glycol 3350 17 Gm Packet PO 17 gm DAILYPRN PRN Administration Constipation Senna/Docusate Sodium 1 tab 06/22/20 21:00 07/01/20 07:41 Senokot S 8.6-50 Mg Tab PO 1 tab BID ELLIE Administration Sodium Chloride 10 ml 06/20/20 22:35 06/26/20 10:41 Flush - Normal Saline 10 Ml Syringe IVF 10 ml PRN PRN Administration Saline Flush - Exam General Appearance: NAD, awake alert Eye: PERRL, anicteric sclera ENT: normocephalic atraumatic, no oropharyngeal lesions Neck: no JVD Heart: RRR, no murmur, no gallops, no rubs Respiratory: CTAB, no wheezes, no rales, no ronchi Gastrointestinal: soft, non-tender, non-distended, normal bowel sounds Extremities: no cyanosis, no clubbing, no edema Skin: no lesions, no rashes Neurological: cranial nerve grossly intact, normal sensation to touch, no weakness Musculoskeletal: no muscle wasting Psychiatric: A&O x 3 Hosp A/P - Plan CT chest/abdomen/pelvis: Large blistering osteolytic mass of the left iliac bone including the acetabular roof. Severe osteoarthrosis of the left hip. Mild thickening and distention of the urinary bladder. Soft tissue mass with surrounding edema in the right posterior pelvic cavity. Questionable hepatic cirrhosis This is a 65 year old male who presented with left hip pain, was found to have metastatic prostate cancer on bone biopsy #Metastatic prostate cancer to the left hip - continue radiation treatment until 07/09, patient is unable to drive daily for treatment. Continue gabapentin 600 mg tid. Continue naproxen and flexeril prn -continue morphine 10 mg po q4 hours prn Leukocytosis - WBC increased to 12.3. He denies any other infectious symptoms. Chest X ray 06/21 was normal. Will monitor #Possible hepatic cirrhosis - noted on CT abdomen. No signs of decompensated cirrhosis currently will monitor #Anemia - Hb 12.5, stable #Hypertension #Hyperlipidemia - continue atorvastatin, amlodipine, coreg
[2020-07-01] MEDS: Milk Of Magnesia 30 ML UDCUP PO PRN (15:25)
[2020-07-01] MEDS ORDERED: Bisacodyl 5 MG TAB PO PRN (17:39)
[2020-07-01] MEDS: Atorvastatin Calcium 40 MG TAB PO SCH (19:30)
[2020-07-01] MEDS: Amlodipine 10 MG TAB PO SCH (19:30)
[2020-07-02] MEDS: Morphine IR 10 MG/5 ML UDCUP PO PRN ×5 (00:50→17:13)
[2020-07-02] MEDS: Cyclobenzaprine 10 MG TAB PO PRN ×3 (04:30→22:23)
[2020-07-02 06:47] LABS: Hemoglobin 12.2 g/dL (14.0-18.0); Mean Corpuscular HGB CONC 33.7 g/dL (32.0-36.0); Mean Corpuscular Hemoglobin 32.5 pg (27.0-31.0); Mean Corpuscular Volume 96.4 fL (78.0-98.0); Mean Platelet Volume 6.2 fL (7.4-10.4); Platelet Count 319 thou/uL (130-400); Red Blood Cell (RBC) Count 3.76 mill/uL (4.70-6.10); White Blood Cell (WBC) Count 14.1 thou/uL (4.8-10.8)
--- NOTE | 2020-07-02 08:09 | PDOC.HOSPP ---
- Objective Vital Signs & Weight: Weight Admit Weight 54.119 kg Weight 99.79 kg I&O: 07/01/20 07/02/20 07/03/20 06:59 06:59 06:59 Intake Total 1470 2660 Balance 1470 2660 Result Diagrams: 07/02/20 06:26 07/01/20 09:37 Hospitalist ROS - Medication Medications: Active Medications Generic Name Dose Route Start Last Admin Trade Name Freq PRN Reason Stop Dose Admin Amlodipine Besylate 10 mg 06/21/20 21:00 07/01/20 19:30 Amlodipine 10 Mg Tab PO 10 mg HS ELLIE Administration Atorvastatin Calcium 40 mg 06/21/20 21:00 07/01/20 19:30 Atorvastatin Calcium 40 Mg Tab PO 40 mg HS ELLIE Administration Bisacodyl 5 mg 07/01/20 17:39 07/01/20 17:46 Bisacodyl 5 Mg Tab PO 5 mg DAILYPRN PRN Administration Constipation Carvedilol 6.25 mg 06/21/20 09:00 07/01/20 19:33 Carvedilol 6.25 Mg Tab PO 6.25 mg BID ELLIE Administration Cyclobenzaprine HCl 5 mg 06/29/20 09:51 07/02/20 04:30 Cyclobenzaprine 10 Mg Tab PO 5 mg TIDPRN PRN Administration Muscle Spasm Dexamethasone 8 mg 06/26/20 09:00 07/01/20 07:43 Dexamethasone 4 Mg/Ml Vial SLOW IVP 8 mg DAILY ELLIE Administration Enoxaparin Sodium 40 mg 06/21/20 09:00 07/01/20 07:40 Enoxaparin Sodium 40 Mg/0.4 Ml Syringe SC 40 mg 0900 ELLIE Administration Gabapentin 600 mg 06/27/20 21:00 07/01/20 19:30 Gabapentin 300 Mg Cap PO 600 mg TID ELLIE Administration Lisinopril 20 mg 06/21/20 09:00 07/01/20 07:42 Lisinopril 20 Mg Tab PO 20 mg DAILY ELLIE Administration Magnesium Hydroxide 30 ml 06/30/20 17:19 07/01/20 15:25 Milk Of Magnesia 30 Ml Udcup PO 30 ml DAILYPRN PRN Administration Constipation Morphine Sulfate 10 mg 06/30/20 11:45 07/02/20 04:33 Morphine Ir 10 Mg/5 Ml Udcup PO 10 mg Q4H PRN Administration Severe Pain (7-10) Naproxen 500 mg 06/29/20 21:00 07/01/20 19:30 Naproxen 500 Mg Tab PO 500 mg BID ELLIE Administration Pantoprazole Sodium 40 mg 06/30/20 09:00 07/01/20 07:42 Pantoprazole 40 Mg Tab PO 40 mg DAILY ELLIE Administration Polyethylene Glycol 17 gm 07/01/20 09:29 07/01/20 10:29 Polyethylene Glycol 3350 17 Gm Packet PO 17 gm DAILYPRN PRN Administration Constipation Senna/Docusate Sodium 1 tab 06/22/20 21:00 07/01/20 19:31 Senokot S 8.6-50 Mg Tab PO 1 tab BID ELLIE Administration Sodium Chloride 10 ml 06/20/20 22:35 06/26/20 10:41 Flush - Normal Saline 10 Ml Syringe IVF 10 ml PRN PRN Administration Saline Flush
[2020-07-02] MEDS: Senokot S 8.6-50 MG TAB PO SCH ×2 (08:45→19:35)
[2020-07-02] MEDS: Carvedilol 6.25 MG TAB PO SCH ×2 (08:45→20:20)
[2020-07-02] MEDS: Dexamethasone 4 mg/ml Vial SLOW IVP SCH (08:45)
[2020-07-02] MEDS: Gabapentin 300 MG CAP PO SCH ×3 (08:45→20:20)
[2020-07-02] MEDS: Lisinopril 20 MG TAB PO SCH (08:45)
[2020-07-02] MEDS: Naproxen 500 MG TAB PO SCH ×2 (08:46→20:19)
[2020-07-02] MEDS: Enoxaparin Sodium 40 MG/0.4 ML SYRINGE SC SCH (08:47)
--- NOTE | 2020-07-02 10:17 | PDOC.HOSPP ---
- Subjective Encounter Date: 07/02/20 Encounter Time: 08:10 Subjective: F/u: metastatic prostate cancer The patient continues to have severe pain. He is getting morphine 10 mg q4 hours prn with relief. He still has pain with walking His constipation hasn't improved. Patient states nurses had him try prune juice and miralax but doesn't seem to work. I talked to him about trying an enema or a suppository Patient otherwise reports no new events, denies nausea/vomiting, and had interrupted sleep last night. He feels about the same as yesterday (no change). - Objective Vital Signs & Weight: Vital Signs (12 hours) Temp Pulse Resp BP Pulse Ox 07/02/20 08:08 97 07/02/20 08:00 97.8 F 69 18 140/69 99 Weight Admit Weight 119 lb 5.008 oz Weight 220 lb I&O: 07/01/20 07/02/20 07/03/20 06:59 06:59 06:59 Intake Total 1470 2660 Balance 1470 2660 Result Diagrams: 07/02/20 06:26 07/01/20 09:37 Hospitalist ROS - Review of Systems Constitutional: denies: fever, chills, sweats, weakness, malaise Eyes: denies: vision change, eyelid inflammation, redness ENT: denies: ear pain, ear discharge, nose pain, nose discharge, nose c ongestion, mouth pain, mouth swelling, throat pain, throat swelling Respiratory: reports: shortness of breath. denies: cough, dry, hemoptysis, pleuritic pain, sputum, wheezing, other Cardiovascular: denies: chest pain, palpitations, orthopnea, paroxysmal noc. dyspnea, light headedness Gastrointestinal: reports: constipation. denies: nausea, vomiting, abdominal pain, diarrhea, melena, hematochezia Genitourinary: denies: dysuria, frequency, incontinence, hematuria, retention Musculoskeletal: denies: neck pain, shoulder pain, arm pain, back pain, hand pain, leg pain, foot pain, other Skin: denies: rash, lesions, elana, bruising Neurological: denies: weakness, incoordination, change in speech, confusion, seizures - Medication Medications: Active Medications Generic Name Dose Route Start Last Admin Trade Name Freq PRN Reason Stop Dose Admin Amlodipine Besylate 10 mg 06/21/20 21:00 07/01/20 19:30 Amlodipine 10 Mg Tab PO 10 mg HS ELLIE Administration Atorvastatin Calcium 40 mg 06/21/20 21:00 07/01/20 19:30 Atorvastatin Calcium 40 Mg Tab PO 40 mg HS ELLIE Administration Bisacodyl 5 mg 07/01/20 17:39 07/01/20 17:46 Bisacodyl 5 Mg Tab PO 5 mg DAILYPRN PRN Administration Constipation Carvedilol 6.25 mg 06/21/20 09:00 07/02/20 08:45 Carvedilol 6.25 Mg Tab PO 6.25 mg BID ELLIE Administration Cyclobenzaprine HCl 5 mg 06/29/20 09:51 07/02/20 04:30 Cyclobenzaprine 10 Mg Tab PO 5 mg TIDPRN PRN Administration Muscle Spasm Dexamethasone 8 mg 06/26/20 09:00 07/02/20 08:45 Dexamethasone 4 Mg/Ml Vial SLOW IVP 8 mg DAILY ELLIE Administration Enoxaparin Sodium 40 mg 06/21/20 09:00 07/02/20 08:47 Enoxaparin Sodium 40 Mg/0.4 Ml Syringe SC 40 mg 0900 ELLIE Administration Gabapentin 600 mg 06/27/20 21:00 07/02/20 08:45 Gabapentin 300 Mg Cap PO 600 mg TID ELLIE Administration Lisinopril 20 mg 06/21/20 09:00 07/02/20 08:45 Lisinopril 20 Mg Tab PO 20 mg DAILY ELLIE Administration Magnesium Hydroxide 30 ml 06/30/20 17:19 07/01/20 15:25 Milk Of Magnesia 30 Ml Udcup PO 30 ml DAILYPRN PRN Administration Constipation Morphine Sulfate 10 mg 06/30/20 11:45 07/02/20 08:46 Morphine Ir 10 Mg/5 Ml Udcup PO 10 mg Q4H PRN Administration Severe Pain (7-10) Naproxen 500 mg 06/29/20 21:00 07/02/20 08:46 Naproxen 500 Mg Tab PO 500 mg BID ELLIE Administration Pantoprazole Sodium 40 mg 06/30/20 09:00 07/02/20 08:45 Pantoprazole 40 Mg Tab PO 40 mg DAILY ELLIE Administration Polyethylene Glycol 17 gm 07/01/20 09:29 07/01/20 10:29 Polyethylene Glycol 3350 17 Gm Packet PO 17 gm DAILYPRN PRN Administration Constipation Senna/Docusate Sodium 1 tab 06/22/20 21:00 07/02/20 08:45 Senokot S 8.6-50 Mg Tab PO 1 tab BID ELLIE Administration Sodium Chloride 10 ml 06/20/20 22:35 07/02/20 08:48 Flush - Normal Saline 10 Ml Syringe IVF 10 ml PRN PRN Administration Saline Flush - Exam General Appearance: NAD, awake alert. negative: ill appearing Eye: PERRL ENT: normocephalic atraumatic Neck: supple, symmetric, no lymphadenopathy Heart: RRR, no murmur, no gallops, no rubs Respiratory: CTAB, no wheezes, no rales, no ronchi Gastrointestinal: soft, non-tender, non-distended Extremities - other findings: decreased range of motion on the left leg Hosp A/P - Plan CT chest/abdomen/pelvis: Large blistering osteolytic mass of the left iliac bone including the acetabular roof. Severe osteoarthrosis of the left hip. Mild thickening and distention of the urinary bladder. Soft tissue mass with surrounding edema in the right posterior pelvic cavity. Questionable hepatic cirrhosis This is a 65 year old male who presented with left hip pain, was found to have metastatic prostate cancer on bone biopsy #Metastatic prostate cancer to the left hip - continue radiation treatment until 07/09, patient is unable to drive daily for treatment. Continue gabapentin 600 mg tid. Continue naproxen and flexeril prn -continue morphine 10 mg po q4 hours prn Leukocytosis - WBC increased to 14.1. He denies any other infectious symptoms. Chest X ray 06/21 was normal. Will monitor Constipation - Advised patient that constipation is a common side effect of all narcotics. Will try lactulose and if no improvement, encouraged patient to try enema. #Possible hepatic cirrhosis - noted on CT abdomen. No signs of decompensated cirrhosis currently will monitor #Anemia - Hb 12.2, stable #Hypertension #Hyperlipidemia - continue atorvastatin, amlodipine, coreg Attending addendum: The patient still has severe pain and constipation. He was reluctant to try an enema General: patient is alert, awake, oriented times three Neuro: he was seen standing up with a walker Musculoskeletal: he has difficulty lifting up his left leg CV: RRR, no murmurs, rubs gallops Lungs: CTAB Plan: Metastatic prostate cancer to left hip: discussed with palliative, will add morphine 15 mg bid long acting and continue prn morphine Constipation: add lactulose tid prn, enema and suppository prn Anemia: stable
[2020-07-02] MEDS ORDERED: Fleet Enema 133 ML BOT PR SCH (10:30)
[2020-07-02] MEDS: Morphine ER 15 MG TAB PO SCH (20:21)
[2020-07-02] MEDS: Atorvastatin Calcium 40 MG TAB PO SCH (20:21)
[2020-07-02] MEDS: Amlodipine 10 MG TAB PO SCH (20:28)
[2020-07-03] MEDS: Morphine IR 10 MG/5 ML UDCUP PO PRN (05:14)
[2020-07-03 05:33] LABS: Hemoglobin 12.2 g/dL (14.0-18.0); Mean Corpuscular HGB CONC 33.9 g/dL (32.0-36.0); Mean Corpuscular Hemoglobin 32.5 pg (27.0-31.0); Mean Corpuscular Volume 95.7 fL (78.0-98.0); Mean Platelet Volume 6.4 fL (7.4-10.4); Platelet Count 304 thou/uL (130-400); RBC Distribution Width 12.1 % (11.5-14.5); Red Blood Cell (RBC) Count 3.75 mill/uL (4.70-6.10); White Blood Cell (WBC) Count 14.3 thou/uL (4.8-10.8)
[2020-07-03 05:49] LABS: Anion Gap 11 mmol/L (10-20); BUN (Urea Nitrogen) 17 mg/dL (8.4-25.7); Calc. Creatinine Clearance 151 mL/min (70-130); Calcium 8.6 mg/dL (7.8-10.44); Carbon Dioxide 27 mmol/L (23-31); Chloride 99 mmol/L (98-107); Glucose 146 mg/dL (80-115); Potassium 4.3 mmol/L (3.5-5.1); Sodium 133 mmol/L (136-145)
[2020-07-03] MEDS: Enoxaparin Sodium 40 MG/0.4 ML SYRINGE SC SCH (08:34)
[2020-07-03] MEDS: Lisinopril 20 MG TAB PO SCH (08:34)
[2020-07-03] MEDS: Carvedilol 6.25 MG TAB PO SCH ×2 (08:34→20:06)
[2020-07-03] MEDS: Senokot S 8.6-50 MG TAB PO SCH ×2 (08:34→19:48)
[2020-07-03] MEDS: Naproxen 500 MG TAB PO SCH ×2 (08:34→20:05)
[2020-07-03] MEDS: Morphine ER 15 MG TAB PO SCH ×2 (08:35→20:05)
[2020-07-03] MEDS: Dexamethasone 4 mg/ml Vial SLOW IVP SCH (08:35)
[2020-07-03] MEDS: Gabapentin 300 MG CAP PO SCH ×3 (08:35→20:04)
--- NOTE | 2020-07-03 09:46 | PDOC.HOSPP ---
- Subjective Encounter Date: 07/03/20 Encounter Time: 09:00 Subjective: F/u: metastatic prostate cancer to the hip , constipation Mr. Gilbert is feeling much better today. He has also had bowel movements yesterday evening. He complained about the frequency after administration of laxative suppository. States he was having frequent bowel movements with significant urgency from 7pm to 12 midnight last night. The bowel movements have slowed since. Denies overnight events or changes. The patient still has pain in his leg. He rates it as a 7/10 and states it improves to a 5/10 after receiving the morphine. He has not required any IV morphine. He wants to switch the dexamethasone to oral - Objective Vital Signs & Weight: Vital Signs (12 hours) Temp Pulse Resp BP BP Pulse Ox 07/03/20 08:34 118/59 L 07/03/20 07:46 98.0 F 68 20 118/59 L 100 07/03/20 07:40 98 Weight Admit Weight 119 lb 5.008 oz Weight 220 lb I&O: 07/02/20 07/03/20 07/04/20 06:59 06:59 06:59 Intake Total 2660 1320 Balance 2660 1320 Result Diagrams: 07/03/20 05:07 07/03/20 05:07 Hospitalist ROS - Review of Systems Constitutional: denies: fever, chills - Medication Medications: Active Medications Generic Name Dose Route Start Last Admin Trade Name Freq PRN Reason Stop Dose Admin Amlodipine Besylate 10 mg 06/21/20 21:00 07/02/20 20:28 Amlodipine 10 Mg Tab PO Not Given HS ELLIE Atorvastatin Calcium 40 mg 06/21/20 21:00 07/02/20 20:21 Atorvastatin Calcium 40 Mg Tab PO 40 mg HS ELLIE Administration Bisacodyl 10 mg 06/28/20 23:16 07/02/20 15:34 Bisacodyl 10 Mg Supp AR 10 mg DAILYPRN PRN Administration Constipation Bisacodyl 5 mg 07/01/20 17:39 07/01/20 17:46 Bisacodyl 5 Mg Tab PO 5 mg DAILYPRN PRN Administration Constipation Carvedilol 6.25 mg 06/21/20 09:00 07/03/20 08:34 Carvedilol 6.25 Mg Tab PO 6.25 mg BID ELLIE Administration Cyclobenzaprine HCl 5 mg 06/29/20 09:51 07/02/20 22:23 Cyclobenzaprine 10 Mg Tab PO 5 mg TIDPRN PRN Administration Muscle Spasm Enoxaparin Sodium 40 mg 06/21/20 09:00 07/03/20 08:34 Enoxaparin Sodium 40 Mg/0.4 Ml Syringe SC 40 mg 0900 ELLIE Administration Gabapentin 600 mg 06/27/20 21:00 07/03/20 08:35 Gabapentin 300 Mg Cap PO 600 mg TID ELLIE Administration Lactulose 10 gm 07/02/20 15:00 07/03/20 08:37 Lactulose 20 Gm/30 Ml Udcup PO Not Given TID ELLIE Lisinopril 20 mg 06/21/20 09:00 07/03/20 08:34 Lisinopril 20 Mg Tab PO 20 mg DAILY ELLIE Administration Magnesium Hydroxide 30 ml 06/30/20 17:19 07/01/20 15:25 Milk Of Magnesia 30 Ml Udcup PO 30 ml DAILYPRN PRN Administration Constipation Morphine Sulfate 10 mg 06/30/20 11:45 07/03/20 05:14 Morphine Ir 10 Mg/5 Ml Udcup PO 10 mg Q4H PRN Administration Severe Pain (7-10) Morphine Sulfate 15 mg 07/02/20 21:00 07/03/20 08:35 Morphine Er 15 Mg Tab PO 15 mg Q12HR ELLIE Administration Naproxen 500 mg 06/29/20 21:00 07/03/20 08:34 Naproxen 500 Mg Tab PO 500 mg BID ELLIE Administration Pantoprazole Sodium 40 mg 06/30/20 09:00 07/03/20 08:34 Pantoprazole 40 Mg Tab PO 40 mg DAILY ELLIE Administration Polyethylene Glycol 17 gm 07/01/20 09:29 07/01/20 10:29 Polyethylene Glycol 3350 17 Gm Packet PO 17 gm DAILYPRN PRN Administration Constipation Senna/Docusate Sodium 1 tab 06/22/20 21:00 07/03/20 08:34 Senokot S 8.6-50 Mg Tab PO 1 tab BID ELLIE Administration Sodium Chloride 10 ml 06/20/20 22:35 07/03/20 08:38 Flush - Normal Saline 10 Ml Syringe IVF 10 ml PRN PRN Administration Saline Flush - Exam General Appearance: NAD, awake alert. negative: ill appearing ENT: normocephalic atraumatic Heart: RRR, no murmur, no gallops, no rubs Respiratory: CTAB, no wheezes, no rales, no ronchi Gastrointestinal: soft, non-tender, normal bowel sounds Gastrointestinal - other findings: distended, firm to palpation Extremities: no edema Extremities - other findings: no tenderness on left hip Skin: normal turgor Neurological: cranial nerve grossly intact Psychiatric: normal affect, normal behavior, A&O x 3 Hosp A/P - Plan CT chest/abdomen/pelvis: Large blistering osteolytic mass of the left iliac bone including the acetabular roof. Severe osteoarthrosis of the left hip. Mild thickening and distention of the urinary bladder. Soft tissue mass with surrounding edema in the right posterior pelvic cavity. Questionable hepatic cirrhosis This is a 65 year old male who presented with left hip pain, was found to have metastatic prostate cancer on bone biopsy #Metastatic prostate cancer to the left hip - continue radiation treatment until 07/09, patient is unable to drive daily for treatment. Continue gabapentin 600 mg tid. Continue naproxen and flexeril prn -continue morphine 10 mg po q4 hours prn and morphine 15 mg bid Leukocytosis - likely from steroids vs malignancy - WBC increased to 14.3. He denies any other infectious symptoms. Chest X ray 06/21 was normal. Will monitor Constipation - Advised patient that constipation is a common side effect of all narcotics. Will try lactulose and if no improvement, encouraged patient to try enema. #Possible hepatic cirrhosis - noted on CT abdomen. No signs of decompensated cirrhosis currently will monit or #Anemia - Hb 12.2, stable #Hypertension #Hyperlipidemia - continue atorvastatin, amlodipine, coreg Attending addendum: I have seen and examined the patient with the student and agree with assessment and plan The patient no longer is constipated after having the suppository. Pain regimen is adequate General: patient is alert, awake, oriented times three Musculoskeletal: he has difficulty lifting up his left leg Plan: Metastatic prostate cancer to left hip: continue morphine 15 mg bid and morphine 10 mg q4 hours prn Constipation: continue prn meds Leukocytosis: no infectious symptoms currently, will discontinue steroids for now and monitor
[2020-07-03] MEDS: Cyclobenzaprine 10 MG TAB PO PRN (14:36)
[2020-07-03] MEDS: Atorvastatin Calcium 40 MG TAB PO SCH (20:06)
[2020-07-03] MEDS: Amlodipine 10 MG TAB PO SCH (20:07)
[2020-07-04] MEDS: Cyclobenzaprine 10 MG TAB PO PRN (01:40)
[2020-07-04] MEDS: Morphine IR 10 MG/5 ML UDCUP PO PRN ×2 (01:41→14:11)
[2020-07-04 05:06] LABS: Hemoglobin 11.8 g/dL (14.0-18.0); Mean Corpuscular HGB CONC 33.1 g/dL (32.0-36.0); Mean Corpuscular Hemoglobin 31.7 pg (27.0-31.0); Mean Corpuscular Volume 95.8 fL (78.0-98.0); Mean Platelet Volume 6.4 fL (7.4-10.4); Platelet Count 314 thou/uL (130-400); RBC Distribution Width 12.3 % (11.5-14.5); Red Blood Cell (RBC) Count 3.71 mill/uL (4.70-6.10); White Blood Cell (WBC) Count 13.3 thou/uL (4.8-10.8)
[2020-07-04] MEDS: Gabapentin 300 MG CAP PO SCH ×3 (08:25→20:02)
[2020-07-04] MEDS: Carvedilol 6.25 MG TAB PO SCH ×2 (08:25→20:06)
[2020-07-04] MEDS: Morphine ER 15 MG TAB PO SCH ×2 (08:26→20:02)
[2020-07-04] MEDS: Lisinopril 20 MG TAB PO SCH (08:27)
[2020-07-04] MEDS: Naproxen 500 MG TAB PO SCH ×2 (08:27→20:02)
[2020-07-04] MEDS: Enoxaparin Sodium 40 MG/0.4 ML SYRINGE SC SCH (08:28)
[2020-07-04] MEDS: Senokot S 8.6-50 MG TAB PO SCH ×2 (08:28→20:06)
[2020-07-04] MEDS ORDERED: Furosemide 20 MG/2 ML VIAL SLOW IVP SCH (09:15)
--- NOTE | 2020-07-04 10:04 | PDOC.HOSPP ---
- Subjective Encounter Date: 07/04/20 Encounter Time: 09:05 Subjective: F/u: metastatic prostate cancer, constipation Mr. Kiser feels a little bit worse today. His stomach is still bothering him with a combination of bloating and pain. He had 5 loose BMs throughout the night, but these aren't watery, they are more like "tremayne". He states his pain is in his RLQ The patient states his leg pain was severe last night and he had to get some prn morphine. The morphine is working for him . His legs also appears more swollen - Objective Vital Signs & Weight: Vital Signs (12 hours) Temp Pulse Resp BP BP Pulse Ox 07/04/20 08:27 117/58 L 07/04/20 08:25 117/58 L 07/04/20 08:00 98.3 F 66 18 147/65 H 100 07/04/20 07:35 98 Weight Admit Weight 119 lb 5.008 oz Weight 220 lb I&O: 07/03/20 07/04/20 07/05/20 06:59 06:59 06:59 Intake Total 1320 480 Balance 1320 480 Result Diagrams: 07/04/20 04:38 07/03/20 05:07 Hospitalist ROS - Review of Systems Constitutional: denies: fever, chills Respiratory: reports: shortness of breath Gastrointestinal: reports: abdominal pain, diarrhea. denies: vomiting, consti pation - Medication Medications: Active Medications Generic Name Dose Route Start Last Admin Trade Name Freq PRN Reason Stop Dose Admin Amlodipine Besylate 10 mg 06/21/20 21:00 07/03/20 20:07 Amlodipine 10 Mg Tab PO Not Given HS ELLIE Atorvastatin Calcium 40 mg 06/21/20 21:00 07/03/20 20:06 Atorvastatin Calcium 40 Mg Tab PO 40 mg HS ELLIE Administration Bisacodyl 10 mg 06/28/20 23:16 07/02/20 15:34 Bisacodyl 10 Mg Supp [place] 10 mg DAILYPRN PRN Administration Constipation Bisacodyl 5 mg 07/01/20 17:39 07/01/20 17:46 Bisacodyl 5 Mg Tab PO 5 mg DAILYPRN PRN Administration Constipation Carvedilol 6.25 mg 06/21/20 09:00 07/04/20 08:25 Carvedilol 6.25 Mg Tab PO 6.25 mg BID ELLIE Administration Cyclobenzaprine HCl 5 mg 06/29/20 09:51 07/04/20 01:40 Cyclobenzaprine 10 Mg Tab PO 5 mg TIDPRN PRN Administration Muscle Spasm Enoxaparin Sodium 40 mg 06/21/20 09:00 07/04/20 08:28 Enoxaparin Sodium 40 Mg/0.4 Ml Syringe SC 40 mg 0900 ELLIE Administration Gabapentin 600 mg 06/27/20 21:00 07/04/20 08:25 Gabapentin 300 Mg Cap PO 600 mg TID ELLIE Administration Lisinopril 20 mg 06/21/20 09:00 07/04/20 08:27 Lisinopril 20 Mg Tab PO 20 mg DAILY ELLIE Administration Magnesium Hydroxide 30 ml 06/30/20 17:19 07/01/20 15:25 Milk Of Magnesia 30 Ml Udcup PO 30 ml DAILYPRN PRN Administration Constipation Morphine Sulfate 10 mg 06/30/20 11:45 07/04/20 01:41 Morphine Ir 10 Mg/5 Ml Udcup PO 10 mg Q4H PRN Administration Severe Pain (7-10) Morphine Sulfate 15 mg 07/02/20 21:00 07/04/20 08:26 Morphine Er 15 Mg Tab PO 15 mg Q12HR ELLIE Administration Naproxen 500 mg 06/29/20 21:00 07/04/20 08:27 Naproxen 500 Mg Tab PO 500 mg BID ELLIE Administration Pantoprazole Sodium 40 mg 06/30/20 09:00 07/04/20 08:27 Pantoprazole 40 Mg Tab PO 40 mg DAILY ELLIE Administration Polyethylene Glycol 17 gm 07/01/20 09:29 07/01/20 10:29 Polyethylene Glycol 3350 17 Gm Packet PO 17 gm DAILYPRN PRN Administration Constipation Senna/Docusate Sodium 1 tab 06/22/20 21:00 07/04/20 08:28 Senokot S 8.6-50 Mg Tab PO Not Given BID ELLIE Sodium Chloride 10 ml 06/20/20 22:35 07/03/20 08:38 Flush - Normal Saline 10 Ml Syringe IVF 10 ml PRN PRN Administration Saline Flush - Exam General Appearance: NAD, awake alert. negative: ill appearing ENT: normocephalic atraumatic Heart: RRR, no murmur, no gallops, no rubs Respiratory: CTAB, no wheezes, no rales, no ronchi Gastrointestinal: normal bowel sounds, distended Gastrointestinal - other findings: Rectal exam: Empty rectal vault. Abdomen: firm to palpation Extremities: 2+ LE edema (left lower extremity 2+, RLE 1.5+) Neurological: cranial nerve grossly intact Psychiatric: normal affect, normal behavior, A&O x 3 Hosp A/P - Plan CT chest/abdomen/pelvis: Large blistering osteolytic mass of the left iliac bone including the acetabular roof. Severe osteoarthrosis of the left hip. Mild thickening and distention of the urinary bladder. Soft tissue mass with surrounding edema in the right posterior pelvic cavity. Questionable hepatic cirrhosis XR Abdomen 07/04: Moderate to large amount of fecal material seen in the colon extending from the ascending colon to the proximal descending olon. Ascending colon measures 12.8 cm in greatest transverse dimension. Findings are suggestive of constipation. This is a 65 year old male who presented with left hip pain, was found to have metastatic prostate cancer on bone biopsy #Metastatic prostate cancer to the left hip - continue radiation treatment until 07/09, patient is unable to drive daily for treatment. Continue gabapentin 600 mg tid. Continue naproxen and flexeril prn -continue morphine 10 mg po q4 hours prn and morphine 15 mg bid Leukocytosis - likely from steroids vs malignancy - WBC decreased to 13.3. He denies any other infectious symptoms. Chest X ray 06/21 was normal. Will monitor #Abdominal distension #Constipation #Soft tissue mass in right pelvis - reports bowel movements but really seems to be more constipation. Abdominal X ray shows moderate to large amount of fecal material . EVERETTE showed empty rectal vault - will continue lactulose TID, enema prn, suppository prn . CT abdomen/pelvis showed soft tissue mass in right pelvis. Will consult GI. Patient reports never having a colonoscopy Edema - upper and lower extremity also likely from steroid administration - Lasix - Ultrasound for possible blockage #Possible hepatic cirrhosis #Peripheral edema - hepatic cirrhosis noted on CT abdomen. Currently has edema, possibly from steroids. Will add 20 mg IV lasix. Will order dopplers to rule out DVT #Anemia - Hb 11.8, stable #Hypertension #Hyperlipidemia - continue atorvastatin, amlodipine, coreg Attending addendum: I have seen and examined the patient with the student and agree with assessment and plan. The patietn is still having abdominal pain and reports tremayne in his stools. He has never had a colonoscopy. General: patient is alert, awake, oriented times three CV: RRR, no murmurs, rubs, gallops Lungs; CTAB Abdomen: firm, hard, nontender Rectal: no stool in rectal vault Musculoskeletal: he has difficulty lifting up his left leg Plan: Metastatic prostate cancer to left hip: continue morphine 15 mg bid and morphine 10 mg q4 hours prn Soft tissue/mass constipation: will continue standing lactulose, enema and suppository. GI consult for soft tissue mass in pelvis Edema: will give IV lasix and check dopplers. Could be from hepatic cirrhosis
--- NOTE | 2020-07-04 10:10 | RAD ---
EXAM: XR Abdomen 1 View/KUB PROVIDED CLINICAL HISTORY: Abdominal distention and constipation. COMPARISON: None. FINDINGS: There is a moderate to large amount retained fecal material seen extending from the ascending colon t o the proximal descending colon. The ascending colon is dilated measuring 12.8 cm in greatest transverse dimension. Gas is seen in the region of the sigmoid colon with paucity of bowel gas in reg ion of the rectum. No dilated loops of small bowel are seen. Vascular calcifications are seen in the abdominal aorta and involving the iliac arteries. Mild degenerative change are seen in the spine. IMPRESSION: Moderate to large amount of retained fecal material seen in the colon extending from the ascending co molly to the proximal descending colon. Ascending colon measures 12.8 cm in greatest transverse dimension. Findings are suggestive of constipation.
[2020-07-04] MEDS ORDERED: Fleet Enema 133 ML BOT PR PRN (11:52)
--- NOTE | 2020-07-04 13:35 | ULT ---
Bilateral lower extremity venous Doppler ultrasound: 07/04/2020 COMPARISON: None HISTORY: Edema, swelling, assess for DVT TECHNIQUE: Multiplanar grayscale sonographic imaging of the venous structures of bilateral lower extr emities obtained with color flow and spectral analysis FINDINGS: The right common femoral vein, greater saphenous vein, profunda femoral vein, femoral vein, popliteal vein, and posterior tibial vein is patent. There is no evidence for deep venous thrombosis of the right lower extremity. The left common femoral vein, greater saphenous vein, profunda femoral vein, femoral vein, and proxim al aspect of the popliteal vein are patent with no evidence for deep venous thrombosis. The patient was unable to the waste management specialist was unable to fully assess the popliteal vein distally on the left seco ndary to patient pain. The patient refused to continue additional imaging from the level of the distal popliteal vein through the calf on the left IMPRESSION: No evidence for deep venous thrombosis of either lower extremity. The left lower extremit y is not fully assessed however. Please see above discussion.
--- NOTE | 2020-07-04 13:42 | CON ---
DATE OF CONSULTATION: 07/04/2020 CHIEF COMPLAINT: Abdominal distention and discomfort and constipation. HISTORY OF PRESENT ILLNESS: Mr. Kiser is a 65-year-old man with metastatic prostate cancer to the bone. He was admitted on 06/20/2020 with hip pain, it was ultimately determined to be metastatic lesion to the bone. He had gone several days without a bowel movement prior to admission. Since admission due to the severe pain, he has required opioid pain medications and has had associated constipation. He was given lactulose and suppository and he started passing liquid stool and complains of urgency and unproductive urges and also passage of liquid stool, but still feeling bloated and distended. He has had no blood in the stool. No nausea or vomiting. He is tolerating a solid diet well. PAST MEDICAL HISTORY: 1. Metastatic prostate cancer. 2. Hypertension. 3. Hyperlipidemia. 4. Peripheral vascular disease. PAST SURGICAL HISTORY: Negative. He has not had prior colonoscopy. FAMILY HISTORY: Negative for GI malignancy. SOCIAL HISTORY: He smokes daily. Occasional alcohol. No drugs. ALLERGIES: NO KNOWN DRUG ALLERGIES. CURRENT MEDICATIONS: 1. Amlodipine. 2. Atorvastatin. 3. Carvedilol. 4. Enoxaparin. 5. Lactulose. 6. Lisinopril. 7. MS Contin. 8. Naproxen. 9. Pantoprazole. He was on Plavix prior to admission. REVIEW OF SYSTEMS: Negative x10 systems reviewed except as stated in history of present illness. He does have hip pain and has pain lying on his left side. OBJECTIVE: VITAL SIGNS: Temperature 98.3, blood pressure 117/58, and pulse 70. GENERAL: He is in no acute distress. Alert and oriented x3. HEENT: Eyes have no scleral icterus. Oropharynx is clear without lesions. NECK: No cervical or supraclavicular lymphadenopathy. LUNGS: Clear to auscultation bilaterally. HEART: Regular rate and rhythm without murmur. ABDOMEN: Soft, mildly distended. Bowel sounds are present, but hypoactive. EXTREMITIES: 2+ pitting lower extremity edema. LABORATORY DATA: White blood cell count 13.3, hemoglobin 11.8, and platelets 314. Creatinine 0.74. IMPRESSION: Constipation secondary to opioid pain medication and limited mobility. Abdominal x-ray on my review reveals a large amount of stool in the right colon. Rectal exam reveals no impaction. Given that he has severe constipation high up in his colon, treatment will be with oral laxatives. We will also start Relistor IV. RECOMMENDATIONS: 1. Scheduled MiraLAX 3 times daily. I would avoid the lactulose at this point due to the associated bloating. 2. Start Relistor IV. 3. cover operator to a full liquid diet. Job ID: [id number]
[2020-07-04] MEDS: Methylnaltrexone 12 MG/0.6 ML VIAL SC SCH (17:26)
[2020-07-04] MEDS: Polyethylene Glycol 3350 17 GM Packet PO SCH ×2 (17:26→20:06)
[2020-07-04] MEDS: Atorvastatin Calcium 40 MG TAB PO SCH (20:02)
[2020-07-04] MEDS: Amlodipine 10 MG TAB PO SCH (20:06)
[2020-07-05] MEDS: Cyclobenzaprine 10 MG TAB PO PRN (01:45)
[2020-07-05] MEDS: Morphine IR 10 MG/5 ML UDCUP PO PRN (01:45)
[2020-07-05] MEDS: Dexamethasone 10 MG/ML VIAL SLOW IVP SCH (08:37)
[2020-07-05] MEDS: Morphine ER 15 MG TAB PO SCH ×2 (08:37→20:15)
[2020-07-05] MEDS: Senokot S 8.6-50 MG TAB PO SCH ×2 (08:38→20:21)
[2020-07-05] MEDS: Gabapentin 300 MG CAP PO SCH ×3 (08:38→20:15)
[2020-07-05] MEDS: Enoxaparin Sodium 40 MG/0.4 ML SYRINGE SC SCH (08:39)
[2020-07-05] MEDS: Lisinopril 20 MG TAB PO SCH (08:39)
[2020-07-05] MEDS: Carvedilol 6.25 MG TAB PO SCH ×3 (08:39→20:15)
[2020-07-05] MEDS: Polyethylene Glycol 3350 17 GM Packet PO SCH ×4 (08:40→20:22)
[2020-07-05] MEDS ORDERED: hydrALAZINE 20 MG/ML VIAL SLOW IVP PRN (09:45)
[2020-07-05] MEDS ORDERED: Lisinopril 20 MG TAB PO SCH (09:45)
[2020-07-05] MEDS: Naproxen 500 MG TAB PO SCH ×2 (09:59→20:15)
[2020-07-05] MEDS: Lisinopril 10 MG TAB PO SCH (10:10)
--- NOTE | 2020-07-05 11:16 | PDOC.HOSPP ---
- Subjective Encounter Date: 07/05/20 Encounter Time: 09:30 Subjective: Patient had a lots of bowel movement last night. He is able to handle his p.o. intake this morning. - Objective Vital Signs & Weight: Vital Signs (12 hours) Temp Pulse Resp BP BP Pulse Ox 07/05/20 10:10 86/49 L 07/05/20 08:45 98 07/05/20 08:39 86/49 L 07/05/20 07:37 98.1 F 71 20 86/49 L 98 07/05/20 07:35 98.1 F 71 07/05/20 01:00 64 109/53 L Weight Admit Weight 119 lb 5.008 oz Weight 220 lb I&O: 07/04/20 07/05/20 07/06/20 06:59 06:59 06:59 Intake Total 480 2710 Balance 480 2710 Result Diagrams: 07/04/20 04:38 07/03/20 05:07 Hospitalist ROS - Medication Medications: Active Medications Generic Name Dose Route Start Last Admin Trade Name Freq PRN Reason Stop Dose Admin Atorvastatin Calcium 40 mg 06/21/20 21:00 07/04/20 20:02 Atorvastatin Calcium 40 Mg Tab PO 40 mg HS ELLIE Administration Bisacodyl 10 mg 06/28/20 23:16 07/02/20 15:34 Bisacodyl 10 Mg Supp [place] 10 mg DAILYPRN PRN Administration Constipation Bisacodyl 5 mg 07/01/20 17:39 07/01/20 17:46 Bisacodyl 5 Mg Tab PO 5 mg DAILYPRN PRN Administration Constipation Carvedilol 6.25 mg 07/05/20 09:00 07/05/20 10:10 Carvedilol 6.25 Mg Tab PO Not Given BID ELLIE Cyclobenzaprine HCl 5 mg 06/29/20 09:51 07/05/20 01:45 Cyclobenzaprine 10 Mg Tab PO 5 mg TIDPRN PRN Administration Muscle Spasm Dexamethasone 10 mg 07/05/20 09:00 07/05/20 08:37 Dexamethasone 10 Mg/Ml Vial SLOW IVP 10 mg DAILY ELLIE Administration Enoxaparin Sodium 40 mg 06/21/20 09:00 07/05/20 08:39 Enoxaparin Sodium 40 Mg/0.4 Ml Syringe SC 40 mg 09 ELLIE Administration Gabapentin 600 mg 06/27/20:00 07/05/20 08:38 Gabapentin 300 Mg Cap PO 600 mg TID ELLIE Administration Lisinopril 10 mg 07/05/20 09:00 07/05/20 10:10 Lisinopril 10 Mg Tab PO Not Given DAILY ELLIE Magnesium Hydroxide 30 ml 06/30/20 17:19 07/01/20 15:25 Milk Of Magnesia 30 Ml Udcup PO 30 ml DAILYPRN PRN Administration Constipation Methylnaltrexone [place] [address] 12 mg 07/04/20 14:00 07/04/20 17:26 Methylnaltrexone 12 Mg/0.6 Ml Vial SC 12 mg Q48H ELLIE Administration Morphine Sulfate 10 mg 06/30/20 11:45 07/05/20 01:45 Morphine Ir 10 Mg/5 Ml Udcup PO 10 mg Q4H PRN Administration Severe Pain (7-10) Morphine Sulfate 15 mg 07/02/20 21:00 07/05/20 08:37 Morphine Er 15 Mg Tab PO 15 mg Q12HR ELLIE Administration Naproxen 500 mg 06/29/20 21:00 07/05/20 09:59 Naproxen 500 Mg Tab PO 500 mg BID ELLIE Administration Pantoprazole Sodium 40 mg 06/30/20 09:00 07/05/20 08:38 Pantoprazole 40 Mg Tab PO 40 mg DAILY ELLIE Administration Polyethylene Glycol 17 gm 07/04/20 15:00 07/05/20 08:40 Polyethylene Glycol 3350 17 Gm Packet PO Not Given TID ELLIE Senna/Docusate Sodium 1 tab 06/22/20 21:00 07/05/20 08:38 Senokot S 8.6-50 Mg Tab PO 1 tab BID ELLIE Administration Sodium Chloride 10 ml 06/20/20 22:35 07/03/20 08:38 Flush - Normal Saline 10 Ml Syringe IVF 10 ml PRN PRN Administration Saline Flush - Exam General Appearance: NAD, awake alert Eye: PERRL ENT: normocephalic atraumatic Neck: supple Heart: RRR Respiratory: CTAB, normal chest expansion Gastrointestinal: soft, normal bowel sounds Neurological: cranial nerve grossly intact, no focal deficits Psychiatric: normal affect, A&O x 3 Hosp A/P - Plan 65 year old male who presented with left hip pain, was found to have metastatic prostate cancer on bone biopsy #Metastatic prostate cancer to the left hip -Lytic lesion secondary to prostate cancer - continue radiation treatment until 07/09, patient is unable to drive daily for treatment. Continue gabapentin 600 mg tid. Continue naproxen and flexeril prn -continue morphine 10 mg po q4 hours prn and morphine 15 mg bid -Status post bone scan Status post bone biopsy of the left hip mass and the biopsy result is consistent with the metastatic prostate cancer. Leukocytosis - likely from steroids vs malignancy - WBC decreased to 13.3. He denies any other infectious symptoms. Chest X ray 06/21 was normal. Will monitor #Abdominal distension #Narcotic induced constipation-- --resolved - MiraLAX 3 times daily. - and Relistor IV #Soft tissue mass in right pelvis -Mets? Edema - upper and lower extremity also likely from steroid administration - Lasix - Ultrasound for possible blockage #Possible hepatic cirrhosis #Peripheral edema - hepatic cirrhosis-- CT abdomen. . Will add 20 mg IV lasix. Doppler negative for lower extremity DVT. #Anemia - Hb 11.8, stable #Hypertension #Hyperlipidemia - continue atorvastatin, amlodipine, coreg Full liquid diet and advance as tolerated. Noncompliance Radiation ongoing last to date . -Patient currently lives alone but plan to move with his son when he is discharged.
--- NOTE | 2020-07-05 16:34 | PRG ---
DATE OF SERVICE: 07/05/2020 SUBJECTIVE: Mr. Kiser had multiple loose bowel movements last night, which he feels like did have substance with them. He has had no nausea or vomiting. OBJECTIVE: VITAL SIGNS: Temperature is 98.1, blood pressure 104/55, pulse 71. GENERAL: He is in no acute distress. Alert and oriented x3. LUNGS: Clear to auscultation bilaterally. HEART: Regular rate and rhythm without murmur. ABDOMEN: Soft. Somewhat distended. He states this is pretty much at his normal baseline. His bowel sounds are present. EXTREMITIES: Positive lower extremity edema. IMPRESSION: Constipation complicated by opioids and decreased mobility. RECOMMENDATIONS: 1. He started Relistor yesterday. 2. He is on scheduled MiraLAX 3 times daily. 3. Recheck an abdominal x-ray in the morning. If his constipation appears to improve, then we can back off the MiraLAX. Ideally, we would switch him over to Movantik as an outpatient however. If he does not have adequate insurance coverage this medicine might not be an option, in which case, we will just need to continue the MiraLAX a couple of times per day. 4. Advance back to a regular diet tomorrow also if his constipation is improved. Job ID: [id number]
[2020-07-05] MEDS: Atorvastatin Calcium 40 MG TAB PO SCH (20:15)
[2020-07-06] MEDS: Senokot S 8.6-50 MG TAB PO SCH ×2 (08:04→20:41)
[2020-07-06] MEDS: Polyethylene Glycol 3350 17 GM Packet PO SCH (08:04)
[2020-07-06] MEDS: Carvedilol 6.25 MG TAB PO SCH ×2 (08:16→20:14)
[2020-07-06] MEDS: Gabapentin 300 MG CAP PO SCH ×3 (08:17→20:13)
[2020-07-06] MEDS: Naproxen 500 MG TAB PO SCH ×2 (08:17→20:15)
[2020-07-06] MEDS: Lisinopril 10 MG TAB PO SCH (08:17)
[2020-07-06] MEDS: Enoxaparin Sodium 40 MG/0.4 ML SYRINGE SC SCH (08:18)
[2020-07-06] MEDS: Morphine ER 15 MG TAB PO SCH ×2 (08:18→20:15)
--- NOTE | 2020-07-06 10:13 | RAD ---
2 VIEWS ABDOMEN: Date: 07/06/2020 PROVIDED CLINICAL HISTORY: Constipation. FINDINGS: Visualized lung bases appear clear. There is no evidence for pneumoperitoneum. There is interval decr ease in fecal load with respect to 07/04/2020, though considerable colonic fecal retention persists. No radiographically apparent urinary tract calculi. IMPRESSION: Persistent colonic fecal retention, appearing less conspicuous than on prior. POS: DEMETRIA
[2020-07-06] MEDS: Dexamethasone 10 MG/ML VIAL SLOW IVP SCH ×2 (10:19→14:53)
--- NOTE | 2020-07-06 11:51 | PRG ---
DATE OF SERVICE: 07/06/2020 SUBJECTIVE: Mr. Kiser again has had multiple runny stools through the night. He only had one of the doses of MiraLAX yesterday. OBJECTIVE: VITAL SIGNS: Temperature is 98.1, pulse 121/57, blood pressure 120/62. GENERAL: He is in no acute distress. Awake and alert. LUNGS: Clear to auscultation bilaterally. HEART: Regular rate and rhythm without murmur. ABDOMEN: Soft, nontender, nondistended. Bowel sounds are present. EXTREMITIES: Trace lower extremity edema. IMPRESSION: 1. Constipation secondary to opioid pain medications and immobility. I reviewed his abdominal x-ray today, which appears significantly improved regarding the large stool collection in the right colon. He has improved with MiraLAX and Relistor. Now, he is having runny stools with all the prior osmotic laxatives that are working the way through. 2. Metastatic prostate cancer. RECOMMENDATIONS: 1. He will hold laxatives today. Restart MiraLAX 17 g once daily tomorrow. 2. He will receive the Relistor today. Hypothetically, he could transition over to oral Movantik as an outpatient, but I do not think this is likely to be practical based on a financial standpoint. Therefore, I think he can just discharge home on MiraLAX once daily to twice daily and adjust the dose to his response. 3. I will sign off for now. Please call if GI can be of assistance. Job ID: [id number]
--- NOTE | 2020-07-06 12:57 | PDOC.HOSPP ---
- Subjective Encounter Date: 07/06/20 Encounter Time: 11:30 Subjective: Patient sitting in the chair he does not have any acute complaints today. No treatment today. - Objective Vital Signs & Weight: Vital Signs (12 hours) Temp Pulse Resp BP BP Pulse Ox 07/06/20 11:35 97.8 F 64 14 95/53 L 98 07/06/20 08:17 121/57 L 07/06/20 08:16 121/57 L Weight Admit Weight 119 lb 5.008 oz Weight 220 lb I&O: 07/05/20 07/06/20 07/07/20 06:59 06:59 06:59 Intake Total 2710 2740 Balance 2710 2740 Result Diagrams: 07/04/20 04:38 07/03/20 05:07 Hospitalist ROS - Medication Medications: Active Medications Generic Name Dose Route Start Last Admin Trade Name Freq PRN Reason Stop Dose Admin Atorvastatin Calcium 40 mg 06/21/20 21:00 07/05/20 20:15 Atorvastatin Calcium 40 Mg Tab PO 40 mg HS ELLIE Administration Bisacodyl 10 mg 06/28/20 23:16 07/02/20 15:34 Bisacodyl 10 Mg Supp [place] 10 mg DAILYPRN PRN Administration Constipation Bisacodyl 5 mg 07/01/20 17:39 07/01/20 17:46 Bisacodyl 5 Mg Tab PO 5 mg DAILYPRN PRN Administration Constipation Carvedilol 6.25 mg 07/05/20 09:00 07/06/20 08:16 Carvedilol 6.25 Mg Tab PO 6.25 mg BID ELLIE Administration Cyclobenzaprine HCl 5 mg 06/29/20 09:51 07/05/20 01:45 Cyclobenzaprine 10 Mg Tab PO 5 mg TIDPRN PRN Administration Muscle Spasm Dexamethasone 10 mg 07/05/20 09:00 07/06/20 10:19 Dexamethasone 10 Mg/Ml Vial SLOW IVP Not Given DAILY ELLIE Enoxaparin Sodium 40 mg 06/21/20 09:00 07/06/20 08:18 Enoxaparin Sodium 40 Mg/0.4 Ml Syringe SC 40 mg 0900 ELLIE Administration Gabapentin 600 mg 06/27/20 21:00 07/06/20 08:17 Gabapentin 300 Mg Cap PO 600 mg TID ELLIE Administration Lisinopril 10 mg 07/05/20 09:00 07/06/20 08:17 Lisinopril 10 Mg Tab PO 10 mg DAILY ELLIE Administration Magnesium Hydroxide 30 ml 06/30/20 17:19 07/01/20 15:25 Milk Of Magnesia 30 Ml Udcup PO 30 ml DAILYPRN PRN Administration Constipation Methylnaltrexone [place] 12 mg 07/04/20 14:00 07/04/20 17:26 Methylnaltrexone 12 Mg/0.6 Ml Vial SC 12 mg Q48H ELLIE Administration Morphine Sulfate 10 mg 06/30/20 11:45 07/05/20 01:45 Morphine Ir 10 Mg/5 Ml Udcup PO 10 mg Q4H PRN Administration Severe Pain (7-10) Morphine Sulfate 15 mg 07/02/20 21:00 07/06/20 08:18 Morphine Er 15 Mg Tab PO 15 mg Q12HR ELLIE Administration Naproxen 500 mg 06/29/20 21:00 07/06/20 08:17 Naproxen 500 Mg Tab PO 500 mg BID ELLIE Administration Pantoprazole Sodium 40 mg 06/30/20 09:00 07/06/20 08:17 Pantoprazole 40 Mg Tab PO 40 mg DAILY ELLIE Administration Senna/Docusate Sodium 1 tab 06/22/20 21:00 07/06/20 08:04 Senokot S 8.6-50 Mg Tab PO Not Given BID ELLIE Sodium Chloride 10 ml 06/20/20 22:35 07/03/20 08:38 Flush - Normal Saline 10 Ml Syringe IVF 10 ml PRN PRN Administration Saline Flush - Exam General Appearance: NAD, awake alert Eye: PERRL ENT: normocephalic atraumatic Neck: supple Heart: RRR, normal peripheral pulses Respiratory: CTAB, normal chest expansion Gastrointestinal: soft, normal bowel sounds Hosp A/P - Plan 65 year old male who presented with left hip pain, was found to have metastatic prostate cancer on bone biopsy #Metastatic prostate cancer to the left hip -Lytic lesion secondary to prostate cancer - continue radiation treatment until 07/09, patient is unable to drive daily for treatment. Continue gabapentin 600 mg tid. Continue naproxen and flexeril prn -continue morphine 10 mg po q4 hours prn and morphine 15 mg bid -Status post bone scan Status post bone biopsy of the left hip mass and the biopsy result is consistent with the metastatic prostate cancer. Leukocytosis - likely from steroids vs malignancy - WBC decreased to 13.3. He denies any other infectious symptoms. Chest X ray 06/21 was normal. Will monitor #Abdominal distension #Narcotic induced constipation-- --resolved - MiraLAX 3 times daily. - and Relistor IV #Soft tissue mass in right pelvis -Mets? Edema - upper and lower extremity also likely from steroid administration - Lasix - Ultrasound for possible blockage #Possible hepatic cirrhosis #Peripheral edema - hepatic cirrhosis-- CT abdomen. . Will add 20 mg IV lasix. Doppler negative for lower extremity DVT. #Anemia - Hb 11.8, stable #Hypertension #Hyperlipidemia - continue atorvastatin, amlodipine, coreg Full liquid diet and advance as tolerated. Noncompliance Radiation ongoing last to date . -Patient currently lives alone but plan to move with his son when he is discharged.
[2020-07-06] MEDS: Methylnaltrexone 12 MG/0.6 ML VIAL SC SCH (14:51)
[2020-07-06] MEDS: Atorvastatin Calcium 40 MG TAB PO SCH (20:14)
[2020-07-07] MEDS: Gabapentin 300 MG CAP PO SCH ×3 (08:07→21:12)
[2020-07-07] MEDS: Morphine ER 15 MG TAB PO SCH (08:08)
[2020-07-07] MEDS: Carvedilol 6.25 MG TAB PO SCH ×2 (08:09→21:13)
[2020-07-07] MEDS: Naproxen 500 MG TAB PO SCH ×2 (08:09→21:13)
[2020-07-07] MEDS: Lisinopril 10 MG TAB PO SCH (08:09)
[2020-07-07] MEDS: Enoxaparin Sodium 40 MG/0.4 ML SYRINGE SC SCH (08:10)
[2020-07-07] MEDS: Dexamethasone 10 MG/ML VIAL SLOW IVP SCH (08:10)
[2020-07-07] MEDS: Senokot S 8.6-50 MG TAB PO SCH ×2 (08:11→21:40)
[2020-07-07] MEDS: Polyethylene Glycol 3350 17 GM Packet PO SCH (08:11)
--- NOTE | 2020-07-07 10:50 | PDOC.HOSPP ---
- Subjective Encounter Date: 07/07/20 Encounter Time: 13:40 Subjective: Mr. Kiser was seen this morning in follow up of metastatic prostate lesion in his left hip. He complains of pain in his left leg from his hip to his knee. Otherwise, he has no other complaints today. - Objective Vital Signs & Weight: Vital Signs (12 hours) Temp Pulse Resp BP BP Pulse Ox 07/07/20 08:16 98.8 F 63 16 134/60 98 07/07/20 08:09 134/60 07/07/20 04:53 96 Weight Admit Weight 119 lb 5.008 oz Weight 220 lb I&O: 07/06/20 07/07/20 07/08/20 06:59 06:59 06:59 Intake Total 2740 2300 500 Balance 2740 2300 500 Result Diagrams: 07/04/20 04:38 07/03/20 05:07 Additional Labs: Accuchecks 07/06/20 20:37 POC Glucose 209 H Hospitalist ROS - Review of Systems Constitutional: denies: fever Respiratory: denies: cough, shortness of breath Cardiovascular: denies: chest pain, palpitations Gastrointestinal: reports: constipation. denies: nausea, vomiting, abdominal pain, diarrhea Musculoskeletal: reports: leg pain - Medication Medications: Active Medications Generic Name Dose Route Start Last Admin Trade Name Freq PRN Reason Stop Dose Admin Atorvastatin Calcium 40 mg 06/21/20 21:00 07/06/20 20:14 Atorvastatin Calcium 40 Mg Tab PO 40 mg HS ELLIE Administration Bisacodyl 10 mg 06/28/20 23:16 07/02/20 15:34 Bisacodyl 10 Mg Supp UT 10 mg DAILYPRN PRN Administration Constipation Bisacodyl 5 mg 07/01/20 17:39 07/01/20 17:46 Bisacodyl 5 Mg Tab PO 5 mg DAILYPRN PRN Administration Constipation Carvedilol 6.25 mg 07/05/20 09:00 07/07/20 08:09 Carvedilol 6.25 Mg Tab PO 6.25 mg BID ELLIE Administration Cyclobenzaprine HCl 5 mg 06/29/20 09:51 07/05/20 01:45 Cyclobenzaprine 10 Mg Tab PO 5 mg TIDPRN PRN Administration Muscle Spasm Dexamethasone 10 mg 07/05/20 09:00 07/07/20 08:10 Dexamethasone 10 Mg/Ml Vial SLOW IVP 10 mg DAILY ELLIE Administration Enoxaparin Sodium 40 mg 06/21/20 09:00 07/07/20 08:10 Enoxaparin Sodium 40 Mg/0.4 Ml Syringe SC 40 mg 0900 ELLIE Administration Gabapentin 600 mg 06/27/20 21:00 07/07/20 08:07 Gabapentin 300 Mg Cap PO 600 mg TID ELLIE Administration Lisinopril 10 mg 07/05/20 09:00 07/07/20 08:09 Lisinopril 10 Mg Tab PO 10 mg DAILY ELLIE Administration Magnesium Hydroxide 30 ml 06/30/20 17:19 07/01/20 15:25 Milk Of Magnesia 30 Ml Udcup PO 30 ml DAILYPRN PRN Administration Constipation Methylnaltrexone [place] 12 mg 07/04/20 14:00 07/06/20 14:51 Methylnaltrexone 12 Mg/0.6 Ml Vial SC 12 mg Q48H ELLIE Administration Morphine Sulfate 10 mg 06/30/20 11:45 07/05/20 01:45 Morphine Ir 10 Mg/5 Ml Udcup PO 10 mg Q4H PRN Administration Severe Pain (7-10) Morphine Sulfate 15 mg 07/02/20 21:00 07/07/20 08:08 Morphine Er 15 Mg Tab PO 15 mg Q12HR ELLIE Administration Naproxen 500 mg 06/29/20 21:00 07/07/20 08:09 Naproxen 500 Mg Tab PO 500 mg BID ELLIE Administration Pantoprazole Sodium 40 mg 06/30/20 09:00 07/07/20 08:09 Pantoprazole 40 Mg Tab PO 40 mg DAILY ELLIE Administration Polyethylene Glycol 17 gm 07/07/20 09:00 07/07/20 08:11 Polyethylene Glycol 3350 17 Gm Packet PO Not Given DAILY ELLIE Senna/Docusate Sodium 1 tab 06/22/20 21:00 07/07/20 08:11 Senokot S 8.6-50 Mg Tab PO Not Given BID ELLIE Sodium Chloride 10 ml 06/20/20 22:35 07/03/20 08:38 Flush - Normal Saline 10 Ml Syringe IVF 10 ml PRN PRN Administration Saline Flush - Exam Eye: PERRL, anicteric sclera Neck: no JVD Heart: RRR, no murmur, no gallops, no rubs, normal peripheral pulses Respiratory: CTAB, no wheezes, no rales, no ronchi, normal chest expansion, no tachypnea, normal percussion Extremities: no cyanosis, 2+ LE edema Neurological: cranial nerve grossly intact Psychiatric: A&O x 3 Hosp A/P - Plan 65 year old male who presented with left hip pain, was found to have metastatic prostate cancer on bone biopsy #Metastatic prostate cancer to the left hip - Lytic lesion secondary to prostate cancer - continue radiation treatment until 07/09, patient is unable to drive daily for treatment. Continue gabapentin 600 mg tid. Continue naproxen and flexeril prn - continue morphine 10 mg po q4 hours prn and morphine 15 mg bid - Status post bone scan - Status post bone biopsy of the left hip mass and the biopsy result is cons istent with the metastatic prostate cancer. Leukocytosis - likely from steroids vs malignancy - WBC decreased to 13.3. He denies any other infectious symptoms. Chest X ray was normal. Will monitor #Abdominal distension #Narcotic induced constipation-- - resolved - MiraLAX 3 times daily-since his bowel movements are improved, will switch Mi raLAX to daily regimen. Patient does not have insurance so he would not be able to get Movantik -Will prescribe MiraLAX upon discharge -Currently getting Relistor IV--continue this as he is on morphine IR and OxyContin #Soft tissue mass in right pelvis -Mets? Edema - upper and lower extremity also likely from steroid administration - Lasix - Ultrasound for possible blockage #Possible hepatic cirrhosis #Peripheral edema - hepatic cirrhosis-- CT abdomen. Will add 20 mg IV lasix. Doppler negative for lower extremity DVT. #Anemia - Hb 11.8, stable #Hypertension #Hyperlipidemia - continue atorvastatin, amlodipine, coreg Noncompliance Radiation ongoing last date . Regular diet -Patient currently lives alone but plan to move with his son when he is discha ed. Plan today discussed with the student in detail and agree with the above note.
[2020-07-07] MEDS ORDERED: oxyCODONE ER 10 MG TAB PO SCH (21:00)
[2020-07-07] MEDS: Atorvastatin Calcium 40 MG TAB PO SCH (21:12)
[2020-07-07] MEDS ORDERED: Morphine ER 15 MG TAB PO SCH (22:45)
[2020-07-08] MEDS: Dexamethasone 10 MG/ML VIAL SLOW IVP SCH (08:27)
[2020-07-08] MEDS: Lisinopril 10 MG TAB PO SCH (08:27)
[2020-07-08] MEDS: Carvedilol 6.25 MG TAB PO SCH (08:28)
[2020-07-08] MEDS: Naproxen 500 MG TAB PO SCH ×2 (08:28→20:08)
[2020-07-08] MEDS: Gabapentin 300 MG CAP PO SCH ×3 (08:29→20:07)
[2020-07-08] MEDS: Morphine ER 15 MG TAB PO SCH ×2 (08:29→20:08)
[2020-07-08] MEDS: Senokot S 8.6-50 MG TAB PO SCH ×2 (08:31→20:07)
[2020-07-08] MEDS: Enoxaparin Sodium 40 MG/0.4 ML SYRINGE SC SCH (08:31)
[2020-07-08] MEDS: Polyethylene Glycol 3350 17 GM Packet PO SCH (08:31)
--- NOTE | 2020-07-08 12:00 | PDOC.HOSPP ---
- Subjective Encounter Date: 07/08/20 Encounter Time: 09:30 Subjective: Mr. Delmer Kiser was seen this morning in follow-up of metastatic prostate cancer to the hip. He is on radiation treatment until tomorrow. He says his constipation has improved. He had two bowel movements last night, and they have placed him back on Miralax. He is back on a regular diet. He continues to have dull, left leg pain. His pain is controlled. He is ambulating with walker. - Objective Vital Signs & Weight: Vital Signs (12 hours) Temp Pulse BP BP Pulse Ox 07/08/20 08:43 97 07/08/20 08:28 140/65 07/08/20 08:27 140/65 07/08/20 08:00 97.9 F 65 140/65 97 Weight Admit Weight 119 lb 5.008 oz Weight 220 lb I&O: 07/07/20 07/08/20 07/09/20 06:59 06:59 06:59 Intake Total 2300 1750 Balance 2300 1750 Result Diagrams: 07/04/20 04:38 07/03/20 05:07 Hospitalist ROS - Review of Systems Constitutional: denies: fever, chills, sweats, weakness Respiratory: denies: cough, shortness of breath Cardiovascular: denies: chest pain, palpitations Gastrointestinal: reports: constipation. denies: nausea, vomiting, abdominal pain, diarrhea Musculoskeletal: reports: leg pain Neurological: denies: weakness, numbness - Medication Medications: Active Medications Generic Name Dose Route Start Last Admin Trade Name Freq PRN Reason Stop Dose Admin Atorvastatin Calcium 40 mg 06/21/20 21:00 07/07/20 21:12 Atorvastatin Calcium 40 Mg Tab PO 40 mg HS ELLIE Administration Bisacodyl 10 mg 06/28/20 23:16 07/02/20 15:34 Bisacodyl 10 Mg Supp NM 10 mg DAILYPRN PRN Administration Constipation Bisacodyl 5 mg 07/01/20 17:39 07/01/20 17:46 Bisacodyl 5 Mg Tab PO 5 mg DAILYPRN PRN Administration Constipation Carvedilol 6.25 mg 07/05/20 09:00 07/08/20 08:28 Carvedilol 6.25 Mg Tab PO 6.25 mg BID ELLIE Administration Cyclobenzaprine HCl 5 mg 06/29/20 09:51 07/05/20 01:45 Cyclobenzaprine 10 Mg Tab PO 5 mg TIDPRN PRN Administration Muscle Spasm Dexamethasone 10 mg 07/05/20 09:00 07/08/20 08:27 Dexamethasone 10 Mg/Ml Vial SLOW IVP 10 mg DAILY ELLIE Administration Enoxaparin Sodium 40 mg 06/21/20 09:00 07/08/20 08:31 Enoxaparin Sodium 40 Mg/0.4 Ml Syringe SC 40 mg 0900 ELLIE Administration Gabapentin 600 mg 06/27/20 21:00 07/08/20 08:29 Gabapentin 300 Mg Cap PO 600 mg TID ELLIE Administration Lisinopril 10 mg 07/05/20 09:00 07/08/20 08:27 Lisinopril 10 Mg Tab PO 10 mg DAILY ELLIE Administration Magnesium Hydroxide 30 ml 06/30/20 17:19 07/01/20 15:25 Milk Of Magnesia 30 Ml Udcup PO 30 ml DAILYPRN PRN Administration Constipation Methylnaltrexone [place] 12 mg 07/04/20 14:00 07/06/20 14:51 Methylnaltrexone 12 Mg/0.6 Ml Vial SC 12 mg Q48H ELLIE Administration Morphine Sulfate 10 mg 06/30/20 11:45 07/05/20 01:45 Morphine Ir 10 Mg/5 Ml Udcup PO 10 mg Q4H PRN Administration Severe Pain (7-10) Morphine Sulfate 15 mg 07/08/20 09:00 07/08/20 08:29 Morphine Er 15 Mg Tab PO 15 mg Q12HR ELLIE Administration Naproxen 500 mg 06/29/20 21:00 07/08/20 08:28 Naproxen 500 Mg Tab PO 500 mg BID ELLIE Administration Pantoprazole Sodium 40 mg 06/30/20 09:00 07/08/20 08:27 Pantoprazole 40 Mg Tab PO 40 mg DAILY ELLIE Administration Polyethylene Glycol 17 gm 07/07/20 09:00 07/08/20 08:31 Polyethylene Glycol 3350 17 Gm Packet PO Not Given DAILY ELLIE Senna/Docusate Sodium 1 tab 06/22/20 21:00 07/08/20 08:31 Senokot S 8.6-50 Mg Tab PO Not Given BID ELLIE Sodium Chloride 10 ml 06/20/20 22:35 07/03/20 08:38 Flush - Normal Saline 10 Ml Syringe IVF 10 ml PRN PRN Administration Saline Flush Hospitalist Exam Vitals: Vital Signs (12 hours) Temp Pulse BP BP Pulse Ox 07/08/20 08:43 97 07/08/20 08:28 140/65 07/08/20 08:27 140/65 07/08/20 08:00 97.9 F 65 140/65 97 Weight Admit Weight 119 lb 5.008 oz Weight 220 lb Eye: PERRL, anicteric sclera Neck: no JVD Heart: RRR, no murmur, no gallops, no rubs, normal peripheral pulses Respiratory: CTAB, no wheezes, no rales, no ronchi, normal chest expansion, no tachypnea Gastrointestinal: soft, non-tender, non-distended Gastrointestinal - other findings: decreased bowel sounds Extremities: 2+ LE edema Neurological: cranial nerve grossly intact Psychiatric: A&O x 3 Hosp A/P - Plan 65 year old male who presented with left hip pain, was found to have metastatic prostate cancer on bone biopsy #Metastatic prostate cancer to the left hip - Lytic lesion secondary to prostate cancer - continue radiation treatment until 07/09, patient is unable to drive daily for treatment. Continue gabapentin 600 mg tid. Continue naproxen and flexeril prn - continue morphine 10 mg po q4 hours prn and morphine 15 mg bid - Status post bone scan - Status post bone biopsy of the left hip mass and the biopsy result is consistent with the metastatic prostate cancer. Leukocytosis - likely from steroids vs malignancy - WBC decreased to 13.3. He denies any other infectious symptoms. Chest X ray 06/21 was normal. Will monitor #Abdominal distension #Narcotic induced constipation-- - resolved - MiraLAX 3 times daily-since his bowel movements are improved, will switch MiraLAX to daily regimen. Patient does not have insurance so he would not be able to get Movantik -Will prescribe MiraLAX upon discharge -Currently getting Relistor IV--continue this as he is on morphine IR and OxyContin #Soft tissue mass in right pelvis -Mets? Edema - upper and lower extremity also likely from steroid administration - Lasix - Ultrasound for possible blockage #Possible hepatic cirrhosis #Peripheral edema - hepatic cirrhosis-- CT abdomen. Will add 20 mg IV lasix. Doppler negative for lower extremity DVT. #Anemia - Hb 11.8, stable #Hypertension #Hyperlipidemia - continue atorvastatin, amlodipine, coreg Noncompliance Radiation ongoing last date . Regular diet -Patient currently lives alone but plan to move with his son when he is discharged. Plan today discussed with the student in detail and agree with the above note. He got the radiation treatment yesterday Plan to get 1 more today around 2 PM I talked to the manager rn case arranging for home health for physical therapy Order placed. Lower extremity edema -He is on IV Lasix his creatinine is normal will check his echo as there is no recent echo His pain is controlled. He is ambulating with walker. Plan to send him home with the narcotics limited quantity and he needs to follow with his primary care physician to continue his analgesic refill.
[2020-07-08] MEDS ORDERED: Carvedilol 6.25 MG TAB PO SCH (12:55)
[2020-07-08] MEDS: Methylnaltrexone 12 MG/0.6 ML VIAL SC SCH (15:23)
[2020-07-08] MEDS: Furosemide 40 MG/4 ML VIAL SLOW IVP SCH (15:23)
[2020-07-08] MEDS: Atorvastatin Calcium 40 MG TAB PO SCH (20:07)
[2020-07-08] MEDS: Carvedilol 3.125 MG TAB PO SCH (20:07)
[2020-07-08] MEDS ORDERED: Furosemide 20 MG/2 ML VIAL SLOW IVP SCH (21:00)
[2020-07-09] MEDS: Furosemide 40 MG/4 ML VIAL SLOW IVP SCH ×2 (06:30→13:33)
[2020-07-09] MEDS: Naproxen 500 MG TAB PO SCH (08:22)
[2020-07-09] MEDS: Carvedilol 3.125 MG TAB PO SCH (08:22)
[2020-07-09] MEDS: Gabapentin 300 MG CAP PO SCH ×2 (08:23→13:33)
[2020-07-09] MEDS: Dexamethasone 10 MG/ML VIAL SLOW IVP SCH (08:23)
[2020-07-09] MEDS: Morphine ER 15 MG TAB PO SCH (08:23)
[2020-07-09] MEDS: Enoxaparin Sodium 40 MG/0.4 ML SYRINGE SC SCH (08:24)
[2020-07-09 08:28] VITALS: BP 126/66
[2020-07-09 08:49] VITALS: TEMP 97.7
[2020-07-09] MEDS ORDERED: Lisinopril 5 MG TAB PO SCH (09:00)
[2020-07-09] MEDS: Polyethylene Glycol 3350 17 GM Packet PO SCH (09:47)
[2020-07-09] MEDS: Senokot S 8.6-50 MG TAB PO SCH (09:47)
--- NOTE | 2020-07-09 09:57 | PDOC.HOSPP ---
- Subjective Encounter Date: 07/09/20 Encounter Time: 11:01 Subjective: Mr. Kiser was seen this morning in follow up of his metastatic prostate cancer. He had his last round of radiation this morning. He feels that the swelling in his legs has gone down. His ECHO was done yesterday. Normal EF and normal left atrium and left ventricular size and function. He would like to know when he would be discharged. - Objective Vital Signs & Weight: Vital Signs (12 hours) Temp Pulse Resp BP BP Pulse Ox 07/09/20 08:22 82 126/66 07/09/20 08:00 97.7 F 76 18 126/66 98 07/09/20 00:06 98 Weight Admit Weight 119 lb 5.008 oz Weight 220 lb I&O: 07/08/20 07/09/20 07/10/20 06:59 06:59 06:59 Intake Total 1750 644 Output Total 400 Balance 1750 244 Result Diagrams: 07/04/20 04:38 07/03/20 05:07 Hospitalist ROS - Review of Systems Constitutional: denies: fever, chills Respiratory: denies: cough, shortness of breath Cardiovascular: denies: chest pain, palpitations Gastrointestinal: reports: constipation (Worse in the evening times.). denies: nausea, vomiting, abdominal pain, diarrhea - Medication Medications: Active Medications Generic Name Dose Route Start Last Admin Trade Name Freq PRN Reason Stop Dose Admin Atorvastatin Calcium 40 mg 06/21/20 21:00 07/08/20 20:07 Atorvastatin Calcium 40 Mg Tab PO 40 mg HS ELLIE Administration Bisacodyl 10 mg 06/28/20 23:16 07/02/20 15:34 Bisacodyl 10 Mg Supp UT 10 mg DAILYPRN PRN Administration Constipation Bisacodyl 5 mg 07/01/20 17:39 07/01/20 17:46 Bisacodyl 5 Mg Tab PO 5 mg DAILYPRN PRN Administration Constipation Carvedilol 3.125 mg 07/08/20 21:00 07/09/20 08:22 Carvedilol 3.125 Mg Tab PO 3.125 mg BID ELLIE Administration Cyclobenzaprine HCl 5 mg 06/29/20 09:51 07/05/20 01:45 Cyclobenzaprine 10 Mg Tab PO 5 mg TIDPRN PRN Administration Muscle Spasm Dexamethasone 10 mg 07/05/20 09:00 07/09/20 08:23 Dexamethasone 10 Mg/Ml Vial SLOW IVP 10 mg DAILY ELLIE Administration Enoxaparin Sodium 40 mg 06/21/20 09:00 07/09/20 08:24 Enoxaparin Sodium 40 Mg/0.4 Ml Syringe SC 40 mg 0900 ELLIE Administration Furosemide 40 mg 07/08/20 14:00 07/09/20 06:30 Furosemide 40 Mg/4 Ml Vial SLOW IVP 40 mg 0600,1400 ELLIE Administration Gabapentin 600 mg 06/27/20 21:00 07/09/20 08:23 Gabapentin 300 Mg Cap PO 600 mg TID ELLIE Administration Lisinopril 5 mg 07/09/20 09:00 07/09/20 08:22 Lisinopril 5 Mg Tab PO 5 mg DAILY ELLIE Administration Magnesium Hydroxide 30 ml 06/30/20 17:19 07/01/20 15:25 Milk Of Magnesia 30 Ml Udcup PO 30 ml DAILYPRN PRN Administration Constipation Methylnaltrexone [place] 12 mg 07/04/20 14:00 07/08/20 15:23 Methylnaltrexone 12 Mg/0.6 Ml Vial SC 12 mg Q48H ELLIE Administration Morphine Sulfate 10 mg 06/30/20 11:45 07/05/20 01:45 Morphine Ir 10 Mg/5 Ml Udcup PO 10 mg Q4H PRN Administration Severe Pain (7-10) Morphine Sulfate 15 mg 07/08/20 09:00 07/09/20 08:23 Morphine Er 15 Mg Tab PO 15 mg Q12HR ELLIE Administration Naproxen 500 mg 06/29/20 21:00 07/09/20 08:22 Naproxen 500 Mg Tab PO 500 mg BID ELLIE Administration Pantoprazole Sodium 40 mg 06/30/20 09:00 07/09/20 08:21 Pantoprazole 40 Mg Tab PO 40 mg DAILY ELLIE Administration Polyethylene Glycol 17 gm 07/07/20 09:00 07/09/20 09:47 Polyethylene Glycol 3350 17 Gm Packet PO Not Given DAILY ELLIE Senna/Docusate Sodium 1 tab 06/22/20 21:00 07/09/20 09:47 Senokot S 8.6-50 Mg Tab PO Not Given BID ELLIE Sodium Chloride 10 ml 06/20/20 22:35 07/09/20 06:30 Flush - Normal Saline 10 Ml Syringe IVF 10 ml PRN PRN Administration Saline Flush Hospitalist Exam Vitals: Vital Signs (12 hours) Temp Pulse Resp BP BP Pulse Ox 07/09/20 08:22 82 126/66 07/09/20 08:00 97.7 F 76 18 126/66 98 07/09/20 00:06 98 Weight Admit Weight 119 lb 5.008 oz Weight 220 lb Eye: PERRL Neck: no JVD Heart: RRR, no murmur, no gallops, no rubs, normal peripheral pulses Respiratory: CTAB, no wheezes, no rales, no ronchi, normal chest expansion Gastrointestinal: soft, non-tender, non-distended, normal bowel sounds, no pal pable masses, no hepatomegaly Extremities: no cyanosis, 2+ LE edema Neurological: cranial nerve grossly intact Psychiatric: A&O x 3 Hosp A/P - Plan 65 year old male who presented with left hip pain, was found to have metastatic prostate cancer on bone biopsy #Metastatic prostate cancer to the left hip - Lytic lesion secondary to prostate cancer - continue radiation treatment until 07/09, patient is unable to drive daily for treatment. Continue gabapentin 600 mg tid. Continue naproxen and flexeril prn - continue morphine 10 mg po q4 hours prn and morphine 15 mg bid - Status post bone scan - Status post bone biopsy of the left hip mass and the biopsy result is consistent with the metastatic prostate cancer. Leukocytosis - likely from steroids vs malignancy - WBC decreased to 13.3. He denies any other infectious symptoms. Chest X ray 06/21 was normal. Will monitor #Abdominal distension #Narcotic induced constipation-- - resolved - MiraLAX 3 times daily-since his bowel movements are improved, will switch MiraLAX to daily regimen. Patient does not have insurance so he would not be able to get Movantik -Will prescribe MiraLAX upon discharge -Currently getting Relistor IV--continue this as he is on morphine IR and OxyContin #Soft tissue mass in right pelvis -Mets? Edema - upper and lower extremity also likely from steroid administration - Lasix - Ultrasound for possible blockage #Possible hepatic cirrhosis #Peripheral edema - hepatic cirrhosis-- CT abdomen. Will add 20 mg IV lasix. Doppler negative for lower extremity DVT. #Anemia - Hb 11.8, stable #Hypertension #Hyperlipidemia - continue atorvastatin, amlodipine, coreg Noncompliance Radiation ongoing last date . Regular diet -Patient currently lives alone but plan to move with his son when he is discharged. Plan today discussed with the student in detail and agree with the above note. He got the radiation treatment yesterday Plan to get 1 more today around 2 PM I talked to the housing case manager arranging for home health for physical therapy Order placed. Lower extremity edema -He is on IV Lasix his creatinine is normal will check his echo as there is no recent echo His pain is controlled. He is ambulating with walker. Plan to send him home with the narcotics limited quantity and he needs to follow with his primary care physician to continue his analgesic refill. Last radiation treatment was this morning. BP is on the lower end--126/66 LE edema--etiology unknown; ECHO results showed EF of 55-60% with mild mitral regurgitation; Normal EF and normal left atrium and left ventricular size and function. Hyperglycemia--glucose at 209; Pt states that he may go home on his own for a few days, and if it doesn't work out, will consider moving in with his son; Home health order in place. d/w student and agree w.. today's plan. Possible discharge after clearance.
--- NOTE | 2020-07-09 13:21 | PDOC.BPN ---
- Brief Progress Note Encounter Date: 07/09/20 Encounter Time: 13:15 Identification: 65 yo M with prostate cancer, iPSA 68.9, grade group 4, initially locally advanced diagnosed in 2017, treated with intermittent Lupron alone due to socioeconomic constraints, now presenting as inpatient with painful large lytic prostate cancer metastases in left iliac bone and surrounding soft tissues, s/p palliative radiation. Radiation Description: Delmer Kiser was treated to the left pelvis. The target volume was contoured on the CT simulation scan and consisted of the large lytic lesion in left iliac bone with soft tissue extent and adjacent lesion in iliac body that was seen on bone scan. This entire volume plus a margin for setup and uncertainty was treated to a total dose of 30 Gy in 10 fractions at 3 Gy per daily fraction. He was planned for treatment with opposed AP/PA 18 MV photon beams. Treatment Tolerance: Mr. Kiser tolerated treatment well with no acute toxicity and good clinical response. His pain had improved by completion of radiation, suspect combination of anaglesics from inpatient hospital team as well as radiation effect. Pain still present with movement and using walker for ambul ation, although pain severity had decreased and he is moving more frequently. He had no skin changes within field of irradiation. He had constipation in beginning of radiation, managed with intensive bowel regimen that led to diarrhea for a few days towards end of treatment. Follow Up: FU with rad onc scheduled in 2 weeks. He intends to FU with Dr. Long as he wishes to proceed with additional systemic therapy. Upon his discharge from hospital, he told me he plans to move in with his son and [id number] and rely on them for transportation to and from appointments.
--- NOTE | 2020-07-09 13:37 | PDOC.DS.DS ---
Provider Date of Admission: 06/20/20 20:36 Admitting Provider: Cory Leal MD Primary Care Physician: Tanya Miller, MSN, [employer]- Course Hospital Course: male who presented with left hip pain, was found to have metastatic prostate cancer on bone biopsy #Metastatic prostate cancer to the left hip - Lytic lesion secondary to prostate cancer - continue radiation treatment until 07/09, patient is unable to drive daily for treatment. Continue gabapentin 600 mg tid. Continue naproxen and flexeril prn - continue morphine 10 mg po q4 hours prn and morphine 15 mg bid - Status post bone scan - Status post bone biopsy of the left hip mass and the biopsy result is consistent with the metastatic prostate cancer. Leukocytosis - likely from steroids vs malignancy - WBC decreased to 13.3. He denies any other infectious symptoms. Chest X ray 06/21 was normal. Will monitor #Abdominal distension #Narcotic induced constipation-- - resolved - MiraLAX 3 times daily #Soft tissue mass in right pelvis -Mets? Edema - upper and lower extremity also likely from steroid administration Doppler negative for lower extremity DVT. #Possible hepatic cirrhosis #Peripheral edema - hepatic cirrhosis-- CT abdomen. #Anemia - Hb 11.8, stable #Hypertension #Hyperlipidemia - continue atorvastatin, amlodipine, coreg Last radiation treatment was this morning. BP is on the lower end--126/66 LE edema--ECHO results showed EF of 55-60% with mild mitral regurgitation; Normal EF and normal left atrium and left ventricular size and function. Pt states that he may go home on his own for a few days, and if it doesn't work out, will consider moving in with his son; Home health order in place. He will follow up with the radiation oncologist which is scheduled in 2 weeks. He will also follow-up with for possible evaluation for chemo therapy. disCharge time over 30 minutes Resuscitation Status: 06/20/20 22:35 Resuscitation Status Routine Co-Sign Provider: Resuscitation Status: FULL: Full Resuscitation Lab Results: 07/04/20 04:38 07/03/20 05:07 Vitals: Vital Signs (12 hours) Temp Pulse Resp BP BP Pulse Ox 07/09/20 08:22 82 126/66 07/09/20 08:00 97.7 F 76 18 126/66 98 Weight Admit Weight 119 lb 5.008 oz Weight 220 lb Physical Exam: The patient was seen and examined on the day of discharge. Plan Prescriptions: Furosemide [Lasix] 20 mg PO DAILY 30 Days #30 tab Polyethylene Glycol 3350 [Miralax] 17 gm PO DAILY 30 Days #30 pk Potassium Chloride 10 meq PO DAILY 30 Days #30 tab Home Medications: Medication Instructions Recorded Confirmed Type Atorvastatin Calcium 40 mg PO HS 06/20/20 06/20/20 History Carvedilol 6.25 mg PO BID 06/20/20 06/20/20 History Clopidogrel Bisulfate [Clopidogrel] 75 mg PO DAILY 06/20/20 06/20/20 History Gabapentin 300 mg PO TID 06/20/20 06/20/20 History Lisinopril 20 mg PO DAILY 06/20/20 06/20/20 History Furosemide [Lasix] 20 mg PO DAILY 30 Days #30 tab 07/09/20 Rx Polyethylene Glycol 3350 [Miralax] 17 gm PO DAILY 30 Days #30 pk 07/09/20 Rx Potassium Chloride 10 meq PO DAILY 30 Days #30 tab 07/09/20 Rx Allergies: No Known Allergies Allergy (Unverified 06/20/20 21:12) Discharge Instructions:: PCP follow-up in 1 week. Radiation oncologist follow-up in 2 weeks You need chemistry lab in 1 week when you follow with your primary care physician as you are started on diuretic / water pill to reduce swelling in the legs Activity:: Activity as Tolerated Nourishment:: Regular Diet Referrals: Tanya Miller, MSN [employer] [facility] [Primary Care Provider] - Disposition: HOME Quality CORE MEASURES:: N/A
== END 2020-07-09 16:48 | disposition home health service (06) | DRG 478 ==
LOC: ONC 20:36
PROVIDERS: ADMIT Internal Medicine; ATTEND Internal Medicine
PROC: 0QB33ZX Excision of Left Pelvic Bone, Percutaneous Approach, Diagnostic (ICD-10-PCS; 2020-06-25)
PROC: DP082ZZ Beam Radiation of Pelvic Bones using Photons >10 MeV (ICD-10-PCS; principal; 2020-06-26)
DX: C79.51 Secondary malignant neoplasm of bone (principal); C79.89 Secondary malignant neoplasm of other specified sites; E44.0 Moderate protein-calorie malnutrition; M84.559A Pathological fracture in neoplastic disease, hip, unspecified, initial encounter for fracture; Z20.822 Contact with and (suspected) exposure to COVID-19; C61 Malignant neoplasm of prostate; K74.60 Unspecified cirrhosis of liver; I10 Essential (primary) hypertension; E78.5 Hyperlipidemia, unspecified; I34.0 Nonrheumatic mitral (valve) insufficiency; I73.9 Peripheral vascular disease, unspecified; D64.9 Anemia, unspecified; F17.210 Nicotine dependence, cigarettes, uncomplicated; D72.829 Elevated white blood cell count, unspecified; T38.0X5A Adverse effect of glucocorticoids and synthetic analogues, initial encounter; K59.03 Drug induced constipation; T40.605A Adverse effect of unspecified narcotics, initial encounter; R60.0 Localized edema; R73.9 Hyperglycemia, unspecified; Z79.02 Long term (current) use of antithrombotics/antiplatelets; Z28.21 Immunization not carried out because of patient refusal; Z79.899 Other long term (current) drug therapy; Z68.29 Body mass index [BMI] 29.0-29.9, adult; Z91.19 Patient's noncompliance with other medical treatment and regimen
CPT/HCPCS: 36415; 36416; 71046; 71260; 74018; 74019; 74177; 77012; 77014; 77280; 77290; 77307; 77334; 77412; 77417; 78306; 80048; 83615; 83883; 83970; 84100; 84153; 84165; 84166; 84550; 85014; 85018; 85025; 85027; 85652; 86140; 87635; 88305; 88341; 88342; 93306; 93970; A9503; J1100; J1650; J1940; J2212; J2270; J3010; Q9967; U0003

== ENCOUNTER 2020-07-10 14:48 | Emergency (ER) | payer MEDICARE ==
[~2020-07-10 14:48] MED LIST: Iopamidol-370 76% 500 ML 1 ML ONE
[2020-07-10 15:52] LABS: #Eosinphils 0.1 thou/uL (0.0-0.7); #Lymphocytes 1.7 thou/uL (1.20-3.40); #Monocytes 1.1 thou/uL (0.11-0.59); %Basophils 0.1 % (0.0-1.0); %Eosinophils 0.6 % (0.0-10.0); %Lymphocytes 11.4 % (21.0-51.0); %Monocytes 7.2 % (0.0-10.0); %Neutrophils 80.7 % (42.0-75.0); Hemoglobin 12.8 g/dL (14.0-18.0); Mean Corpuscular HGB CONC 33.7 g/dL (32.0-36.0); Mean Corpuscular Hemoglobin 32.3 pg (27.0-31.0); Mean Corpuscular Volume 95.8 fL (78.0-98.0); Mean Platelet Volume 5.7 fL (7.4-10.4); Platelet Count 304 thou/uL (130-400); RBC Distribution Width 12.5 % (11.5-14.5); Red Blood Cell (RBC) Count 3.96 mill/uL (4.70-6.10); White Blood Cell (WBC) Count 14.9 thou/uL (4.8-10.8)
[2020-07-10 16:17] LABS: ALT (SGPT) 12 U/L (8-55); AST (SGOT) 8 U/L (5-34); Albumin 3.5 g/dL (3.4-4.8); Alkaline Phosphatase 66 U/L (40-110); Anion Gap 12 mmol/L (10-20); BUN (Urea Nitrogen) 19 mg/dL (8.4-25.7); Bilirubin, Total 0.4 mg/dL (0.2-1.2); Calc. Creatinine Clearance 0 mL/min (70-130); Calcium 8.6 mg/dL (7.8-10.44); Carbon Dioxide 31 mmol/L (23-31); Chloride 94 mmol/L (98-107); Globulin 2.4 g/dL (2.4-3.5); Glucose 117 mg/dL (80-115); Protein, Total 5.9 g/dL (5.8-8.1); Sodium 133 mmol/L (136-145)
[2020-07-10 23:19] LABS: SARS-CoV-2 NAA Rapid Test Not Detected (NotDetected)
== END 2020-07-11 00:17 ==
LOC: ERS 14:48
DX: R53.1 Weakness (principal); R06.00 Dyspnea, unspecified; C79.51 Secondary malignant neoplasm of bone; I10 Essential (primary) hypertension; F17.210 Nicotine dependence, cigarettes, uncomplicated; Z79.899 Other long term (current) drug therapy
CPT/HCPCS: 71045; 71275; 80053; 83880; 84484; 85025; 93005; 94760; 99285; U0002; 36415; Q9967

== ENCOUNTER 2021-10-28 07:16 | Emergency (ER) | payer MEDICARE ==
[2021-10-28 07:55] LABS: #Eosinphils 0.2 thou/uL (0.0-0.7); #Lymphocytes 1.2 thou/uL (1.20-3.40); #Monocytes 0.4 thou/uL (0.11-0.59); #Neutrophils 6.4 thou/uL (1.40-6.50); %Basophils 0.3 % (0.0-1.0); %Eosinophils 2.4 % (0.0-10.0); %Monocytes 4.4 % (0.0-10.0); %Neutrophils 77.8 % (42.0-75.0); Hemoglobin 9.8 g/dL (14.0-18.0); Mean Corpuscular HGB CONC 33.1 g/dL (32.0-36.0); Mean Corpuscular Hemoglobin 30.2 pg (27.0-31.0); Mean Corpuscular Volume 91.1 fL (78.0-98.0); Platelet Count 409 thou/uL (130-400); RBC Distribution Width 14.8 % (11.5-14.5); Red Blood Cell (RBC) Count 3.24 mill/uL (4.70-6.10); White Blood Cell (WBC) Count 8.2 thou/uL (4.8-10.8)
[2021-10-28 08:17] LABS: ALT (SGPT) Less than 7 U/L (8-55); AST (SGOT) 17 U/L (5-34); Albumin 3.2 g/dL (3.4-4.8); Alkaline Phosphatase 524 U/L (40-110); Anion Gap 13 mmol/L (10-20); BUN (Urea Nitrogen) 12 mg/dL (8.4-25.7); Bilirubin, Total 0.6 mg/dL (0.2-1.2); Calc. Creatinine Clearance 0 mL/min (70-130); Calcium 8.8 mg/dL (7.8-10.44); Carbon Dioxide 24 mmol/L (23-31); Chloride 100 mmol/L (98-107); Globulin 3.9 g/dL (2.4-3.5); Glucose 95 mg/dL (80-115); Lipase 35 U/L (8-78); Protein, Total 7.1 g/dL (5.8-8.1); Sodium 132 mmol/L (136-145)
[2021-10-28 09:40] LABS: Bacteria/HPF 3+ HPF (None Seen); Bilirubin Negative (Negative); Blood, Urine 3+ (Negative); Clarity Turbid (Clear); Glucose, Urine (Dipstick) Normal (Negative); Ketone, Urine Negative (Negative); Leukocyte 500 Leu/uL (Negative); Nitrite Negative (Negative); Protein, Urine (Dipstick) 20 mg/dL (Neg-Trace); RBC/HPF Greater than 50 HPF (0-3); Squamous Epithelial None Seen HPF (0-3); Urobilinogen Normal mg/dL (Less than 2); WBC/HPF Greater than 50 HPF (0-3)
[2021-10-28] MEDS ORDERED: Morphine 4 MG/ML VIAL ONE ×2 (10:20→11:20)
[2021-10-28] MEDS ORDERED: cefTRIAXone\\ROCEPHIN 2 GM VIAL ONE (10:20)
== END 2021-10-28 12:42 | disposition home or self-care (01) ==
LOC: ERS 07:16
DX: T83.511A Infection and inflammatory reaction due to indwelling urethral catheter, initial encounter (principal); N39.0 Urinary tract infection, site not specified; R10.9 Unspecified abdominal pain; E78.5 Hyperlipidemia, unspecified; E78.00 Pure hypercholesterolemia, unspecified; I10 Essential (primary) hypertension; M10.9 Gout, unspecified; F17.210 Nicotine dependence, cigarettes, uncomplicated
CPT/HCPCS: 36415; 74177; 80053; 81003; 81015; 82550; 83605; 83690; 83735; 85025; 86850; 86900; 86901; 87040; 87077; 87086; 93005; 96365; 96372; J0696; J2270

== ENCOUNTER 2021-11-18 22:12 | Inpatient (IN) | payer OTHER, MEDICARE ==
[2021-11-18] MEDS ORDERED: Ketorolac Tromethamine 30 MG/ML VIAL ONE (22:30)
[2021-11-18] MEDS ORDERED: Morphine 2 MG/ML VIAL ONE (23:13)
[2021-11-18 23:55] LABS: #Basophils 0.1 thou/uL (0.0-0.2); #Eosinphils 0.2 thou/uL (0.0-0.7); #Lymphocytes 1.1 thou/uL (1.20-3.40); #Monocytes 0.5 thou/uL (0.11-0.59); #Neutrophils 8.4 thou/uL (1.40-6.50); %Basophils 0.6 % (0.0-1.0); %Eosinophils 1.7 % (0.0-10.0); %Lymphocytes 10.8 % (21.0-51.0); %Monocytes 4.8 % (0.0-10.0); %Neutrophils 82.1 % (42.0-75.0); Hemoglobin 8.4 g/dL (14.0-18.0); Mean Corpuscular HGB CONC 32.4 g/dL (32.0-36.0); Mean Corpuscular Hemoglobin 29.1 pg (27.0-31.0); Mean Corpuscular Volume 89.7 fL (78.0-98.0); Platelet Count 592 thou/uL (130-400); Red Blood Cell (RBC) Count 2.89 mill/uL (4.70-6.10); White Blood Cell (WBC) Count 10.2 thou/uL (4.8-10.8)
[2021-11-19] MEDS ORDERED: Morphine 4 MG/ML VIAL ONE (00:16)
[2021-11-19] MEDS ORDERED: Acetaminophen 500 MG TAB ONE (00:17)
[2021-11-19 00:20] LABS: ALT (SGPT) 8 U/L (8-55); AST (SGOT) 17 U/L (5-34); Alkaline Phosphatase 503 U/L (40-110); Anion Gap 13 mmol/L (10-20); BUN (Urea Nitrogen) 15 mg/dL (8.4-25.7); Bilirubin, Total 0.5 mg/dL (0.2-1.2); Calc. Creatinine Clearance 0 mL/min (70-130); Calcium 8.6 mg/dL (7.8-10.44); Carbon Dioxide 22 mmol/L (23-31); Chloride 100 mmol/L (98-107); Globulin 3.7 g/dL (2.4-3.5); Glucose 112 mg/dL (80-115); Potassium 4.2 mmol/L (3.5-5.1); Protein, Total 6.7 g/dL (5.8-8.1); Sodium 131 mmol/L (136-145)
[2021-11-19] MEDS ORDERED: hydrALAZINE 20 MG/ML VIAL SLOW IVP PRN (00:28)
[2021-11-19] MEDS ORDERED: Promethazine HCl 25 MG/ML VIAL IM PRN (00:28)
[2021-11-19] MEDS ORDERED: Ondansetron PF 4 MG/2 ML Vial IVP PRN (00:28)
[2021-11-19] MEDS ORDERED: Sodium Chloride 0.9% 1,000 ML IV SCH (00:30)
[2021-11-19] MEDS ORDERED: Cyclobenzaprine 10 MG TAB PO PRN (00:31)
[2021-11-19] MEDS ORDERED: traMADol HCl 50 MG TAB PO PRN (00:31)
[2021-11-19] MEDS ORDERED: Ketorolac Tromethamine 30 MG/ML VIAL IVP SCH (01:15)
[2021-11-19] MEDS: Morphine 2 MG/ML VIAL SLOW IVP PRN ×3 (01:54→06:23)
[2021-11-19 02:50] VITALS: BMI 27.8
[2021-11-19 06:18] LABS: #Eosinphils 0.1 thou/uL (0.0-0.7); #Lymphocytes 1.1 thou/uL (1.20-3.40); #Monocytes 0.4 thou/uL (0.11-0.59); #Neutrophils 6.6 thou/uL (1.40-6.50); %Basophils 0.5 % (0.0-1.0); %Eosinophils 0.6 % (0.0-10.0); %Lymphocytes 13.5 % (21.0-51.0); %Monocytes 5.1 % (0.0-10.0); %Neutrophils 80.3 % (42.0-75.0); Hemoglobin 7.8 g/dL (14.0-18.0); Mean Corpuscular HGB CONC 33.1 g/dL (32.0-36.0); Mean Corpuscular Volume 90.8 fL (78.0-98.0); Mean Platelet Volume 5.2 fL (7.4-10.4); Platelet Count 535 thou/uL (130-400); White Blood Cell (WBC) Count 8.2 thou/uL (4.8-10.8)
[2021-11-19] MEDS: Ketorolac Tromethamine 30 MG/ML VIAL IVP SCH ×4 (06:21→22:34)
[2021-11-19] MEDS: Acetaminophen 500 MG TAB PO SCH ×4 (06:24→22:34)
[2021-11-19] MEDS: traMADol HCl 50 MG TAB PO SCH ×4 (06:25→22:33)
[2021-11-19 06:27] LABS: INR-International Normal Ratio 1.2; PTT 53.3 sec (22.9-36.1)
[2021-11-19 06:45] LABS: Phosphorus 3.5 mg/dL (2.3-4.7)
[2021-11-19 06:48] LABS: Anion Gap 14 mmol/L (10-20); BUN (Urea Nitrogen) 16 mg/dL (8.4-25.7); Calc. Creatinine Clearance 104 mL/min (70-130); Calcium 8.4 mg/dL (7.8-10.44); Carbon Dioxide 20 mmol/L (23-31); Chloride 101 mmol/L (98-107); Glucose 91 mg/dL (80-115); Magnesium 1.9 mg/dL (1.6-2.6); Potassium 4.3 mmol/L (3.5-5.1); Sodium 131 mmol/L (136-145)
[2021-11-19] MEDS ORDERED: CEFAZOLIN 2 GM in Sodium Chloride 0.9% 100 ML IVPB SCH (07:30)
[2021-11-19] MEDS ORDERED: Carvedilol 3.125 MG TAB PO SCH (08:00)
[2021-11-19] MEDS ORDERED: Morphine 2 MG/ML VIAL SLOW IVP SCH (08:45)
[2021-11-19] MEDS ORDERED: Morphine 4 MG/ML VIAL SLOW IVP SCH (08:45)
[2021-11-19] MEDS ORDERED: Clopidogrel Bisulfate 75 MG TAB PO SCH (09:00)
[2021-11-19] MEDS: Famotidine 20 MG TAB PO SCH ×2 (09:16→21:05)
[2021-11-19] MEDS: Senokot S 8.6-50 MG TAB PO SCH ×2 (09:16→21:05)
[2021-11-19] MEDS: Sodium Chloride 1 GM TAB PO SCH ×2 (09:16→17:35)
[2021-11-19] MEDS: Potassium Chloride 10 MEQ TAB PO SCH ×2 (09:16→21:05)
[2021-11-19] MEDS: Sodium Chloride 0.9% 1,000 ML IV SCH ×3 (09:17→21:06)
[2021-11-19] MEDS: Ascorbic Acid 500 mg Chewable Tablet PO SCH ×2 (09:17→21:05)
[2021-11-19] MEDS: Famotidine 40 MG/4 ML VIAL SLOW IVP SCH ×2 (09:17→21:07)
[2021-11-19] MEDS: Polyethylene Glycol 3350 17 GM Packet PO SCH (09:17)
[2021-11-19 09:19] LABS: SARS-CoV-2 NAA Rapid Test Not Detected (NotDetected)
[2021-11-19] MEDS ORDERED: Bacitracin 1 PK TOP PRN (16:03)
[2021-11-19] MEDS: Ferrous Sulfate 325 MG TAB PO SCH (17:36)
[2021-11-19] MEDS: Atorvastatin Calcium 40 MG TAB PO SCH (21:05)
[2021-11-20] MEDS: Sodium Chloride 1 GM TAB PO SCH ×3 (01:17→17:18)
[2021-11-20] MEDS: Ketorolac Tromethamine 30 MG/ML VIAL IVP SCH (06:08)
[2021-11-20] MEDS: Acetaminophen 500 MG TAB PO SCH (06:08)
[2021-11-20] MEDS: traMADol HCl 50 MG TAB PO SCH ×4 (06:10→22:36)
[2021-11-20 06:30] LABS: #Eosinphils 0.2 thou/uL (0.0-0.7); #Lymphocytes 1.2 thou/uL (1.20-3.40); #Monocytes 0.4 thou/uL (0.11-0.59); #Neutrophils 5.4 thou/uL (1.40-6.50); %Basophils 0.4 % (0.0-1.0); %Eosinophils 3.4 % (0.0-10.0); %Lymphocytes 15.9 % (21.0-51.0); %Neutrophils 75.2 % (42.0-75.0); Hemoglobin 6.5 g/dL (14.0-18.0); Mean Corpuscular HGB CONC 31.7 g/dL (32.0-36.0); Mean Corpuscular Volume 91.7 fL (78.0-98.0); Mean Platelet Volume 4.9 fL (7.4-10.4); Platelet Count 470 thou/uL (130-400); RBC Distribution Width 15.2 % (11.5-14.5); Red Blood Cell (RBC) Count 2.22 mill/uL (4.70-6.10); White Blood Cell (WBC) Count 7.2 thou/uL (4.8-10.8)
[2021-11-20 06:55] LABS: Anion Gap 13 mmol/L (10-20); BUN (Urea Nitrogen) 17 mg/dL (8.4-25.7); Calc. Creatinine Clearance 104 mL/min (70-130); Calcium 7.7 mg/dL (7.8-10.44); Carbon Dioxide 19 mmol/L (23-31); Chloride 106 mmol/L (98-107); Glucose 70 mg/dL (80-115); Magnesium 2.1 mg/dL (1.6-2.6); Phosphorus 3.5 mg/dL (2.3-4.7); Potassium 4.7 mmol/L (3.5-5.1); Sodium 133 mmol/L (136-145)
[2021-11-20] MEDS: Potassium Chloride 10 MEQ TAB PO SCH ×2 (08:41→20:08)
[2021-11-20] MEDS: Famotidine 20 MG TAB PO SCH ×2 (08:41→20:08)
[2021-11-20] MEDS: Polyethylene Glycol 3350 17 GM Packet PO SCH (08:41)
[2021-11-20] MEDS: Ferrous Sulfate 325 MG TAB PO SCH ×2 (08:41→17:18)
[2021-11-20] MEDS: Ascorbic Acid 500 mg Chewable Tablet PO SCH ×2 (08:41→20:08)
[2021-11-20] MEDS: Senokot S 8.6-50 MG TAB PO SCH ×2 (08:42→20:09)
[2021-11-20] MEDS: Famotidine 40 MG/4 ML VIAL SLOW IVP SCH ×2 (08:42→20:09)
[2021-11-20] MEDS ORDERED: Gabapentin 100 MG CAP PO SCH (09:00)
[2021-11-20] MEDS ORDERED: Gabapentin 300 MG CAP PO SCH (09:01)
[2021-11-20] MEDS ORDERED: Sodium Chloride 0.9% 1,000 ML IV SCH ×2 (11:00→23:45)
[2021-11-20] MEDS: Acetaminophen 325 MG TAB PO SCH ×4 (11:06→22:36)
[2021-11-20] MEDS: HYDROcodone/Acetaminophen 5/325 mg Tablet PO PRN ×3 (11:06→21:30)
[2021-11-20] MEDS: Ibuprofen 200 MG TAB PO SCH ×2 (14:34→21:24)
[2021-11-20] MEDS: Atorvastatin Calcium 40 MG TAB PO SCH (20:08)
[2021-11-20] MEDS ORDERED: Morphine 2 MG/ML VIAL SLOW IVP PRN (23:30)
[2021-11-21] MEDS: Ketorolac Tromethamine 30 MG/ML VIAL IVP SCH ×2 (00:06→05:20)
[2021-11-21] MEDS: Sodium Chloride 1 GM TAB PO SCH ×3 (01:30→16:17)
[2021-11-21] MEDS: Acetaminophen 325 MG TAB PO SCH ×5 (03:50→21:40)
[2021-11-21] MEDS: traMADol HCl 50 MG TAB PO SCH ×2 (05:21→11:35)
[2021-11-21 06:31] LABS: #Eosinphils 0.3 thou/uL (0.0-0.7); #Lymphocytes 1.3 thou/uL (1.20-3.40); #Monocytes 0.5 thou/uL (0.11-0.59); #Neutrophils 5.7 thou/uL (1.40-6.50); %Eosinophils 3.3 % (0.0-10.0); %Lymphocytes 17.2 % (21.0-51.0); %Monocytes 6.2 % (0.0-10.0); %Neutrophils 73.3 % (42.0-75.0); Hemoglobin 7.3 g/dL (14.0-18.0); Mean Corpuscular HGB CONC 32.4 g/dL (32.0-36.0); Mean Corpuscular Hemoglobin 29.8 pg (27.0-31.0); Mean Corpuscular Volume 91.9 fL (78.0-98.0); Platelet Count 436 thou/uL (130-400); RBC Distribution Width 14.8 % (11.5-14.5); Red Blood Cell (RBC) Count 2.46 mill/uL (4.70-6.10); White Blood Cell (WBC) Count 7.7 thou/uL (4.8-10.8)
[2021-11-21] MEDS: Potassium Chloride 10 MEQ TAB PO SCH ×2 (09:06→21:51)
[2021-11-21] MEDS: Ascorbic Acid 500 mg Chewable Tablet PO SCH ×2 (09:06→21:52)
[2021-11-21] MEDS: Polyethylene Glycol 3350 17 GM Packet PO SCH (09:06)
[2021-11-21] MEDS: Senokot S 8.6-50 MG TAB PO SCH ×2 (09:07→21:53)
[2021-11-21] MEDS: Gabapentin 300 MG CAP PO SCH ×3 (09:07→21:51)
[2021-11-21] MEDS: Pantoprazole 40 MG VIAL IVP SCH (09:07)
[2021-11-21] MEDS: Famotidine 20 MG TAB PO SCH (09:07)
[2021-11-21] MEDS: Ferrous Sulfate 325 MG TAB PO SCH ×2 (09:28→16:17)
[2021-11-21] MEDS: Ibuprofen 200 MG TAB PO SCH ×2 (10:11→16:17)
[2021-11-21] MEDS ORDERED: Phenazopyridine HCl 97.5 MG TABLET PO PRN (14:38)
[2021-11-21] MEDS ORDERED: Hydrocortisone Sod Succ/PF 100 mg/2 ml Vial IVP SCH (14:45)
[2021-11-21] MEDS ORDERED: Nicotine 14 MG PATCH TD PRN (16:00)
[2021-11-21] MEDS: Hydrocortisone Sod Succ/PF 100 mg/2 ml Vial IVP SCH (21:49)
[2021-11-21] MEDS: Trospium 20 MG TAB PO SCH (21:51)
[2021-11-21] MEDS: Atorvastatin Calcium 40 MG TAB PO SCH (21:53)
[2021-11-22] MEDS: Acetaminophen 325 MG TAB PO SCH ×7 (00:33→22:51)
[2021-11-22] MEDS: Sodium Chloride 1 GM TAB PO SCH ×4 (00:34→23:01)
[2021-11-22] MEDS: Ibuprofen 200 MG TAB PO SCH ×3 (03:39→18:19)
[2021-11-22] MEDS: Hydrocortisone Sod Succ/PF 100 mg/2 ml Vial IVP SCH ×3 (05:02→21:01)
[2021-11-22 06:52] LABS: Hemoglobin 7.4 g/dL (14.0-18.0)
[2021-11-22] MEDS: Trospium 20 MG TAB PO SCH ×2 (08:27→20:58)
[2021-11-22] MEDS: Pantoprazole 40 MG VIAL IVP SCH (08:27)
[2021-11-22] MEDS: Ascorbic Acid 500 mg Chewable Tablet PO SCH ×2 (08:27→20:57)
[2021-11-22] MEDS: Enoxaparin Sodium 40 MG/0.4 ML SYRINGE SC SCH ×2 (08:27→08:41)
[2021-11-22] MEDS: Potassium Chloride 10 MEQ TAB PO SCH ×2 (08:27→20:58)
[2021-11-22] MEDS: Polyethylene Glycol 3350 17 GM Packet PO SCH ×2 (08:27→08:42)
[2021-11-22] MEDS: Gabapentin 300 MG CAP PO SCH ×3 (08:27→20:58)
[2021-11-22] MEDS: Furosemide 20 MG TAB PO SCH (08:27)
[2021-11-22] MEDS: Clopidogrel Bisulfate 75 MG TAB PO SCH (08:27)
[2021-11-22] MEDS: Ferrous Sulfate 325 MG TAB PO SCH ×2 (08:27→16:33)
[2021-11-22] MEDS: Senokot S 8.6-50 MG TAB PO SCH ×2 (08:27→20:59)
[2021-11-22] MEDS: Atorvastatin Calcium 40 MG TAB PO SCH (20:57)
[2021-11-22] MEDS: HYDROcodone/Acetaminophen 5/325 mg Tablet PO PRN (22:59)
[2021-11-23] MEDS: Ibuprofen 200 MG TAB PO SCH ×3 (03:47→17:09)
[2021-11-23] MEDS: Acetaminophen 325 MG TAB PO SCH ×5 (03:47→17:09)
[2021-11-23] MEDS: HYDROcodone/Acetaminophen 5/325 mg Tablet PO PRN ×3 (04:27→17:09)
[2021-11-23] MEDS: Hydrocortisone Sod Succ/PF 100 mg/2 ml Vial IVP SCH ×3 (06:24→21:05)
[2021-11-23] MEDS: Ferrous Sulfate 325 MG TAB PO SCH ×2 (08:20→17:09)
[2021-11-23] MEDS: Trospium 20 MG TAB PO SCH ×2 (08:20→21:06)
[2021-11-23] MEDS: Polyethylene Glycol 3350 17 GM Packet PO SCH (08:21)
[2021-11-23] MEDS: Potassium Chloride 10 MEQ TAB PO SCH ×2 (08:21→21:05)
[2021-11-23] MEDS: Gabapentin 300 MG CAP PO SCH ×3 (08:21→21:05)
[2021-11-23] MEDS: Senokot S 8.6-50 MG TAB PO SCH ×2 (08:21→21:04)
[2021-11-23] MEDS: Furosemide 20 MG TAB PO SCH (08:21)
[2021-11-23] MEDS: Ascorbic Acid 500 mg Chewable Tablet PO SCH ×2 (08:21→21:05)
[2021-11-23] MEDS: Enoxaparin Sodium 40 MG/0.4 ML SYRINGE SC SCH (08:21)
[2021-11-23] MEDS: Clopidogrel Bisulfate 75 MG TAB PO SCH (08:21)
[2021-11-23] MEDS: Sodium Chloride 1 GM TAB PO SCH ×2 (08:26→17:09)
[2021-11-23] MEDS ORDERED: Calcium Carbonate 500 MG ChewTAB PO PRN (10:44)
[2021-11-23] MEDS: Atorvastatin Calcium 40 MG TAB PO SCH (21:05)
[2021-11-24] MEDS: Sodium Chloride 1 GM TAB PO SCH ×3 (00:39→16:52)
[2021-11-24] MEDS: Acetaminophen 325 MG TAB PO SCH ×7 (00:39→23:29)
[2021-11-24] MEDS: Ibuprofen 200 MG TAB PO SCH ×3 (02:32→18:29)
[2021-11-24] MEDS: Hydrocortisone Sod Succ/PF 100 mg/2 ml Vial IVP SCH ×3 (05:35→20:49)
[2021-11-24 06:10] LABS: Hemoglobin 7.2 g/dL (14.0-18.0)
[2021-11-24 06:40] LABS: Anion Gap 13 mmol/L (10-20); BUN (Urea Nitrogen) 14 mg/dL (8.4-25.7); Calc. Creatinine Clearance 125 mL/min (70-130); Calcium 8.3 mg/dL (7.8-10.44); Carbon Dioxide 21 mmol/L (23-31); Chloride 107 mmol/L (98-107); Glucose 95 mg/dL (80-115); Magnesium 1.9 mg/dL (1.6-2.6); Phosphorus 3.1 mg/dL (2.3-4.7); Potassium 4.2 mmol/L (3.5-5.1); Sodium 137 mmol/L (136-145)
[2021-11-24] MEDS: Ferrous Sulfate 325 MG TAB PO SCH ×2 (09:41→16:52)
[2021-11-24] MEDS: Furosemide 20 MG TAB PO SCH (09:41)
[2021-11-24] MEDS: Potassium Chloride 10 MEQ TAB PO SCH ×2 (09:41→20:50)
[2021-11-24] MEDS: Enoxaparin Sodium 40 MG/0.4 ML SYRINGE SC SCH (09:41)
[2021-11-24] MEDS: Trospium 20 MG TAB PO SCH ×2 (09:41→20:50)
[2021-11-24] MEDS: Polyethylene Glycol 3350 17 GM Packet PO SCH (09:41)
[2021-11-24] MEDS: Ascorbic Acid 500 mg Chewable Tablet PO SCH ×2 (09:41→20:50)
[2021-11-24] MEDS: Senokot S 8.6-50 MG TAB PO SCH ×2 (09:41→20:50)
[2021-11-24] MEDS: Clopidogrel Bisulfate 75 MG TAB PO SCH (09:46)
[2021-11-24] MEDS: Gabapentin 300 MG CAP PO SCH ×3 (09:46→20:49)
[2021-11-24] MEDS: HYDROcodone/Acetaminophen 5/325 mg Tablet PO PRN (09:50)
[2021-11-24] MEDS ORDERED: PHOS-NAK 1 PKT PACK PO SCH (10:45)
[2021-11-24] MEDS: Atorvastatin Calcium 40 MG TAB PO SCH (20:50)
[2021-11-25] MEDS: Sodium Chloride 1 GM TAB PO SCH ×2 (03:30→08:11)
[2021-11-25] MEDS: Acetaminophen 325 MG TAB PO SCH ×5 (03:30→17:50)
[2021-11-25] MEDS: Ibuprofen 200 MG TAB PO SCH ×3 (03:30→17:50)
[2021-11-25] MEDS: Hydrocortisone Sod Succ/PF 100 mg/2 ml Vial IVP SCH (05:58)
[2021-11-25] MEDS: Enoxaparin Sodium 40 MG/0.4 ML SYRINGE SC SCH (08:08)
[2021-11-25] MEDS: Polyethylene Glycol 3350 17 GM Packet PO SCH (08:10)
[2021-11-25] MEDS: Ascorbic Acid 500 mg Chewable Tablet PO SCH ×2 (08:10→20:03)
[2021-11-25] MEDS: Trospium 20 MG TAB PO SCH ×2 (08:11→20:02)
[2021-11-25] MEDS: Potassium Chloride 10 MEQ TAB PO SCH ×2 (08:11→20:03)
[2021-11-25] MEDS: Clopidogrel Bisulfate 75 MG TAB PO SCH (08:11)
[2021-11-25] MEDS: Senokot S 8.6-50 MG TAB PO SCH ×2 (08:11→20:04)
[2021-11-25] MEDS: Furosemide 20 MG TAB PO SCH (08:11)
[2021-11-25] MEDS: Ferrous Sulfate 325 MG TAB PO SCH ×2 (08:12→17:49)
[2021-11-25] MEDS: Gabapentin 300 MG CAP PO SCH ×3 (08:12→20:02)
[2021-11-25] MEDS ORDERED: Bisacodyl 10 MG SUPP PR SCH (11:45)
[2021-11-25] MEDS: Atorvastatin Calcium 40 MG TAB PO SCH (20:03)
[2021-11-26] MEDS: Acetaminophen 325 MG TAB PO SCH ×6 (00:04→18:35)
[2021-11-26] MEDS: Cyclobenzaprine 10 MG TAB PO PRN ×2 (00:27→21:16)
[2021-11-26] MEDS: HYDROcodone/Acetaminophen 5/325 mg Tablet PO PRN ×2 (00:28→21:14)
[2021-11-26] MEDS: Ibuprofen 200 MG TAB PO SCH ×3 (04:30→18:35)
[2021-11-26] MEDS: Potassium Chloride 10 MEQ TAB PO SCH ×2 (09:54→21:13)
[2021-11-26] MEDS: Trospium 20 MG TAB PO SCH ×2 (09:54→21:14)
[2021-11-26] MEDS: Gabapentin 300 MG CAP PO SCH ×3 (09:55→21:13)
[2021-11-26] MEDS: Ascorbic Acid 500 mg Chewable Tablet PO SCH ×2 (09:55→21:12)
[2021-11-26] MEDS: Furosemide 20 MG TAB PO SCH (09:55)
[2021-11-26] MEDS: Clopidogrel Bisulfate 75 MG TAB PO SCH (09:55)
[2021-11-26] MEDS: Ferrous Sulfate 325 MG TAB PO SCH ×2 (09:55→16:02)
[2021-11-26] MEDS: Senokot S 8.6-50 MG TAB PO SCH ×2 (09:56→21:14)
[2021-11-26] MEDS: Polyethylene Glycol 3350 17 GM Packet PO SCH (09:57)
[2021-11-26] MEDS ORDERED: Metamucil PACK PO SCH (11:15)
[2021-11-26] MEDS: Atorvastatin Calcium 40 MG TAB PO SCH (21:12)
[2021-11-27] MEDS: Acetaminophen 325 MG TAB PO SCH ×7 (01:09→23:44)
[2021-11-27] MEDS: Ibuprofen 200 MG TAB PO SCH ×3 (04:29→20:17)
[2021-11-27 05:37] LABS: #Eosinphils 0.1 thou/uL (0.0-0.7); #Lymphocytes 1.5 thou/uL (1.20-3.40); #Monocytes 0.5 thou/uL (0.11-0.59); #Neutrophils 9.2 thou/uL (1.40-6.50); %Eosinophils 0.8 % (0.0-10.0); %Lymphocytes 13.2 % (21.0-51.0); %Monocytes 4.8 % (0.0-10.0); %Neutrophils 81.2 % (42.0-75.0); Hemoglobin 6.9 g/dL (14.0-18.0); Mean Corpuscular HGB CONC 32.2 g/dL (32.0-36.0); Mean Corpuscular Hemoglobin 30.2 pg (27.0-31.0); Mean Corpuscular Volume 93.6 fL (78.0-98.0); Platelet Count 356 thou/uL (130-400); RBC Distribution Width 16.3 % (11.5-14.5); White Blood Cell (WBC) Count 11.3 thou/uL (4.8-10.8)
[2021-11-27 05:54] LABS: Anion Gap 11 mmol/L (10-20); BUN (Urea Nitrogen) 11 mg/dL (8.4-25.7); Calc. Creatinine Clearance 133 mL/min (70-130); Calcium 7.7 mg/dL (7.8-10.44); Carbon Dioxide 23 mmol/L (23-31); Chloride 104 mmol/L (98-107); Glucose 103 mg/dL (80-115); Magnesium 1.9 mg/dL (1.6-2.6); Phosphorus 3.2 mg/dL (2.3-4.7); Potassium 3.6 mmol/L (3.5-5.1); Sodium 134 mmol/L (136-145)
[2021-11-27] MEDS: Clopidogrel Bisulfate 75 MG TAB PO SCH (10:08)
[2021-11-27] MEDS: Gabapentin 300 MG CAP PO SCH ×3 (10:08→21:15)
[2021-11-27] MEDS: Furosemide 20 MG TAB PO SCH (10:08)
[2021-11-27] MEDS: Ascorbic Acid 500 mg Chewable Tablet PO SCH ×2 (10:08→21:15)
[2021-11-27] MEDS: Potassium Chloride 10 MEQ TAB PO SCH ×2 (10:08→21:16)
[2021-11-27] MEDS: Polyethylene Glycol 3350 17 GM Packet PO SCH (10:09)
[2021-11-27] MEDS: Trospium 20 MG TAB PO SCH ×2 (10:12→21:16)
[2021-11-27] MEDS: Metamucil PACK PO SCH (14:46)
[2021-11-27] MEDS: Ferrous Sulfate 325 MG TAB PO SCH ×2 (14:46→18:51)
[2021-11-27] MEDS: Senokot S 8.6-50 MG TAB PO SCH ×2 (14:47→21:16)
[2021-11-27] MEDS ORDERED: Preparation H Suppository PR PRN (15:01)
[2021-11-27] MEDS ORDERED: Preparation H HC 1% Cream 26 GM TUBE TOP SCH ×2 (15:15→21:00)
[2021-11-27] MEDS: Atorvastatin Calcium 40 MG TAB PO SCH (21:15)
[2021-11-27] MEDS: HYDROcodone/Acetaminophen 5/325 mg Tablet PO PRN (21:22)
[2021-11-27] MEDS: Cyclobenzaprine 10 MG TAB PO PRN (21:22)
[2021-11-28] MEDS: Ibuprofen 200 MG TAB PO SCH ×2 (04:30→12:16)
[2021-11-28] MEDS: Acetaminophen 325 MG TAB PO SCH ×5 (04:30→15:20)
[2021-11-28 07:19] LABS: #Eosinphils 0.2 thou/uL (0.0-0.7); #Lymphocytes 1.5 thou/uL (1.20-3.40); #Monocytes 0.5 thou/uL (0.11-0.59); #Neutrophils 7.9 thou/uL (1.40-6.50); %Basophils 0.1 % (0.0-1.0); %Eosinophils 1.7 % (0.0-10.0); %Lymphocytes 14.4 % (21.0-51.0); %Monocytes 5.2 % (0.0-10.0); %Neutrophils 78.6 % (42.0-75.0); Hemoglobin 7.9 g/dL (14.0-18.0); Mean Corpuscular HGB CONC 32.8 g/dL (32.0-36.0); Mean Corpuscular Hemoglobin 30.1 pg (27.0-31.0); Mean Corpuscular Volume 91.6 fL (78.0-98.0); Mean Platelet Volume 5.5 fL (7.4-10.4); Platelet Count 364 thou/uL (130-400); RBC Distribution Width 15.7 % (11.5-14.5); Red Blood Cell (RBC) Count 2.61 mill/uL (4.70-6.10); White Blood Cell (WBC) Count 10.1 thou/uL (4.8-10.8)
[2021-11-28 07:28] LABS: Anion Gap 11 mmol/L (10-20); BUN (Urea Nitrogen) 12 mg/dL (8.4-25.7); Calc. Creatinine Clearance 137 mL/min (70-130); Calcium 7.6 mg/dL (7.8-10.44); Carbon Dioxide 24 mmol/L (23-31); Chloride 104 mmol/L (98-107); Glucose 97 mg/dL (80-115); Magnesium 1.9 mg/dL (1.6-2.6); Phosphorus 3.3 mg/dL (2.3-4.7); Potassium 3.9 mmol/L (3.5-5.1); Sodium 135 mmol/L (136-145)
[2021-11-28] MEDS ORDERED: PHOS-NAK 1 PKT PACK PO SCH (08:00)
[2021-11-28] MEDS ORDERED: Hydrocortisone 2.5%/Pramoxine 1% CRM 30 GM TUBE TOP SCH (09:00)
[2021-11-28] MEDS: Furosemide 20 MG TAB PO SCH (09:11)
[2021-11-28] MEDS: Gabapentin 300 MG CAP PO SCH ×2 (09:11→15:20)
[2021-11-28] MEDS: Ferrous Sulfate 325 MG TAB PO SCH (09:12)
[2021-11-28] MEDS: Trospium 20 MG TAB PO SCH (09:12)
[2021-11-28] MEDS: Clopidogrel Bisulfate 75 MG TAB PO SCH (09:12)
[2021-11-28] MEDS: Potassium Chloride 10 MEQ TAB PO SCH (09:12)
[2021-11-28] MEDS: Ascorbic Acid 500 mg Chewable Tablet PO SCH (09:12)
[2021-11-28] MEDS: Polyethylene Glycol 3350 17 GM Packet PO SCH (09:13)
[2021-11-28] MEDS: Metamucil PACK PO SCH (09:13)
[2021-11-28] MEDS: Senokot S 8.6-50 MG TAB PO SCH (09:13)
[2021-11-28 17:38] VITALS: BP 97/60; TEMP 98.9
== END 2021-11-28 19:12 | DRG 534 ==
LOC: ERS 22:12 → SURG B 11-19 00:32
PROVIDERS: ADMIT Specialist; ATTEND Surgery
PROC: 30233N1 Transfusion of Nonautologous Red Blood Cells into Peripheral Vein, Percutaneous Approach (ICD-10-PCS; principal; 2021-11-20)
DX: S79.192A Other physeal fracture of lower end of left femur, initial encounter for closed fracture (principal); E87.1 Hypo-osmolality and hyponatremia; N13.39 Other hydronephrosis; C79.51 Secondary malignant neoplasm of bone; C79.11 Secondary malignant neoplasm of bladder; D62 Acute posthemorrhagic anemia; Z20.822 Contact with and (suspected) exposure to COVID-19; I10 Essential (primary) hypertension; E78.5 Hyperlipidemia, unspecified; E78.00 Pure hypercholesterolemia, unspecified; M10.9 Gout, unspecified; G62.9 Polyneuropathy, unspecified; F17.210 Nicotine dependence, cigarettes, uncomplicated; M16.12 Unilateral primary osteoarthritis, left hip; D69.6 Thrombocytopenia, unspecified; E66.9 Obesity, unspecified; N40.1 Benign prostatic hyperplasia with lower urinary tract symptoms; R33.8 Other retention of urine; C61 Malignant neoplasm of prostate; K64.8 Other hemorrhoids; W01.0XXA Fall on same level from slipping, tripping and stumbling without subsequent striking against object, initial encounter; Y92.002 Bathroom of unspecified non-institutional (private) residence as the place of occurrence of the external cause; Z79.899 Other long term (current) drug therapy; Z79.02 Long term (current) use of antithrombotics/antiplatelets; Z68.27 Body mass index [BMI] 27.0-27.9, adult; Z98.890 Other specified postprocedural states; Z88.8 Allergy status to other drugs, medicaments and biological substances; Z80.42 Family history of malignant neoplasm of prostate; Z99.3 Dependence on wheelchair; Z91.19 Patient's noncompliance with other medical treatment and regimen
CPT/HCPCS: 36415; 36416; 36430; 71045; 80048; 80053; 82533; 83735; 83880; 84100; 84153; 85014; 85018; 85025; 85610; 85730; 86850; 86900; 86901; 93005; 94640; 96374; 96375; 96376; C9113; G0390; J1650; J1720; J1885; J2270; J7050; J7620; P9016; U0002; U0003; U0005